=== PATIENT | male | born 1965 | race Caucasian/White ===

== ENCOUNTER → 2020-09-14 10:18 | Outpatient (BNVA) | payer OTHER, SELFPAY | PROVIDERS: Visit Provider Physician Assistant Medical | DX: S83.92XA Sprain of unspecified site of left knee, initial encounter (principal); S76.312A Strain of muscle, fascia and tendon of the posterior muscle group at thigh level, left thigh, initial encounter; S30.0XXA Contusion of lower back and pelvis, initial encounter; W01.0XXA Fall on same level from slipping, tripping and stumbling without subsequent striking against object, initial encounter | CPT/HCPCS: 73564; 99203 ==

== ENCOUNTER → 2020-09-19 09:00 | Outpatient (BNVA) | payer OTHER, SELFPAY | PROVIDERS: Visit Provider Physician Assistant | DX: M25.462 Effusion, left knee (principal) | CPT/HCPCS: 99213 ==

== ENCOUNTER 2020-09-23 08:09 | Outpatient (REF) | payer BC, SELFPAY ==
[2020-09-23 09:42] LABS: MANUAL DIFF FLAG SCAN; Mean Corpuscular Volume 95.8 fL (80-98); PLT CLUMP 1; SCAN SMEAR FLAG 1
[2020-09-23 09:45] LABS: Basophils Absolute Auto 0.1 X10*3/uL (0.0-0.2); Basophils Percent Auto 0.8 % (0-2); Eosinophils Absolute Auto 0.4 X10*3/uL (0.0-0.4); Eosinophils Percent Auto 5.8 % (0-4); Hematocrit 43.3 % (42-52); Imm Gran Abs Auto 0.02 X10*3/uL (0.00-0.03); Imm Gran Pct Auto 0.3 % (0.0-0.4); Lymphocytes Absolute Auto 3.1 X10*3/uL (1.2-4.9); Lymphocytes Percent Auto 42.4 % (20-40); Mean Corpuscular HGB Conc 34.6 g/dl (31.0-36.0); Mean Corpuscular Hemoglobin 33.2 pg (27.0-33.0); Mean Platelet Volume 10.3 fL (9.4-12.4); Monocytes Absolute Auto 0.4 X10*3/uL (0.1-1.2); Monocytes Percent Auto 6.1 % (2-11); Neutrophils Absolute Auto 3.2 X10*3/uL (2.0-8.3); Neutrophils Percent Auto 44.6 % (45-73); Red Blood Count 4.52 X10*6/uL (4.60-5.80); Red Cell Distribution Width 11.8 % (11.0-16.0); White Blood Count 7.2 X10*3/uL (4.8-10.8)
[2020-09-23 10:13] LABS: Alanine Aminotransferase 39 U/L (0-40); Albumin Level 4.3 g/dL (3.5-5.0); Alkaline Phosphatase 75 U/L (39-117); Anion Gap 12 (12-20); Aspartate Amino Transferase 29 U/L (5-37); Bilirubin Direct 0.3 mg/dL (0.0-0.5); Bilirubin Total 0.8 mg/dL (0.0-1.0); Blood Urea Nitrogen 14 mg/dL (9-16); Calcium 8.9 mg/dL (8.4-10.2); Carbon Dioxide 27 mmol/L (22-29); Chloride 106 mmol/L (96-108); Cholesterol 263 mg/dL; Estimated Glomerular Filt Rate > 60; Glucose Fasting 91 mg/dL (60-99); HDL Cholesterol 43 mg/dL; LDL Cholesterol Calculated 157 mg/dl; Magnesium 2.1 mg/dL (1.6-2.6); Potassium 4.2 mmol/l (3.3-5.1); Sodium 141 mmol/L (135-145); Total Protein 6.9 g/dL (6.5-8.0); Triglycerides 318 mg/dL
[2020-09-23 11:24] LABS: Platelet Count 208 X10*3/uL (160-400)
[2020-09-23 12:15] LABS: Erythrocyte Sedimentation Rate 7 MM/HR (0-15)
[2020-09-23 13:09] LABS: SLIDE REVIEW VERIFIED
== END 2020-09-23 08:10 | disposition home or self-care (01) ==
LOC: HO.LAB 08:09
DX: I10 Essential (primary) hypertension (principal); E78.5 Hyperlipidemia, unspecified
CPT/HCPCS: 36415; 80053; 80061; 80076; 82248; 83735; 85025; 85652

== ENCOUNTER → 2020-09-27 08:41 | Outpatient (BNVA) | payer OTHER, SELFPAY | PROVIDERS: Visit Provider Physician Assistant | DX: S83.242A Other tear of medial meniscus, current injury, left knee, initial encounter (principal); S83.282A Other tear of lateral meniscus, current injury, left knee, initial encounter; S82.142A Displaced bicondylar fracture of left tibia, initial encounter for closed fracture; X58.XXXA Exposure to other specified factors, initial encounter | CPT/HCPCS: 99213 ==

== ENCOUNTER → 2020-10-05 11:33 | Outpatient (BNVA) | payer OTHER, SELFPAY | PROVIDERS: Visit Provider Physician Assistant | DX: S83.242A Other tear of medial meniscus, current injury, left knee, initial encounter (principal); S83.282A Other tear of lateral meniscus, current injury, left knee, initial encounter; X58.XXXA Exposure to other specified factors, initial encounter; Y93.9 Activity, unspecified; Y92.9 Unspecified place or not applicable; Y99.8 Other external cause status | CPT/HCPCS: 99213 ==

== ENCOUNTER 2021-05-23 09:05 | Outpatient (REF) | payer BC, SELFPAY ==
[2021-05-23 10:07] LABS: Hemoglobin 15.2 g/dl (14.0-18.0); Mean Corpuscular HGB Conc 34.5 g/dl (31.0-36.0); Mean Corpuscular Volume 95.7 fL (80-98); Mean Platelet Volume 9.4 fL (9.4-12.4); Platelet Count 240 X10*3/uL (160-400); White Blood Count 7.5 X10*3/uL (4.8-10.8)
[2021-05-23 10:19] LABS: Alanine Aminotransferase 24 U/L (0-40); Albumin Level 4.4 g/dL (3.5-5.0); Alkaline Phosphatase 82 U/L (39-117); Anion Gap 13 (12-20); Aspartate Amino Transferase 25 U/L (5-37); Bilirubin Direct 0.3 mg/dL (0.0-0.5); Blood Urea Nitrogen 14 mg/dL (9-16); Calcium 9.5 mg/dL (8.4-10.2); Carbon Dioxide 28 mmol/L (22-29); Chloride 107 mmol/L (96-108); Cholesterol 244 mg/dL; Estimated Glomerular Filt Rate > 60; Glucose Random 93 mg/dL (60-115); HDL Cholesterol 52 mg/dL; LDL Cholesterol Calculated 145 mg/dl; Potassium 4.5 mmol/L (3.3-5.1); Sodium 143 mmol/L (135-145); Total Protein 7.2 g/dL (6.5-8.0); Triglycerides 235 mg/dL
[2021-05-23 10:39] LABS: Thyroid Stimulating Hormone 2.15 uIU/mL (0.32-4.0)
[2021-05-23 12:02] LABS: Glucose Urine UA NEG (NEG); Leukocyte Esterase Urine NEG (NEG); Nitrite Urine NEG (NEG); PH 6.5 (5.0-8.0); Urine Blood NEG (NEG); Urine Ketones NEG (NEG); Urine Protein NEG (NEG-TRACE)
[2021-05-23 12:08] LABS: Appearance Urine CLEAR; Color Urine STRAW
== END 2021-05-23 09:06 | disposition home or self-care (01) ==
LOC: HO.LAB 09:05
PROVIDERS: PCP Internal Medicine; Visit Provider Internal Medicine
DX: E78.00 Pure hypercholesterolemia, unspecified (principal)
CPT/HCPCS: 36415; 80048; 80061; 80076; 81003; 84443; 85027

== ENCOUNTER 2021-06-17 10:36 | Outpatient (REF) | payer BC, SELFPAY ==
--- NOTE | ~2021-06-17 | XR_ITS ---
EXAMINATION: XR CHEST CLINICAL INFORMATION: Chest pain COMPARISON: February 15, 2017 TECHNIQUE: 2 views of the chest were obtained. FINDINGS: No significant abnormality is noted involving the heart, lungs, mediastinum, bony thorax or soft tissues. XR/XR chest 2V IMPRESSION: No acute disease.
== END 2021-06-17 10:37 | disposition home or self-care (01) ==
LOC: HO.XRAY 10:36
PROVIDERS: PCP Internal Medicine; Visit Provider Internal Medicine
DX: R07.9 Chest pain, unspecified (principal); I10 Essential (primary) hypertension; E78.00 Pure hypercholesterolemia, unspecified; F10.10 Alcohol abuse, uncomplicated; F12.10 Cannabis abuse, uncomplicated
CPT/HCPCS: 71046

== ENCOUNTER → 2021-07-26 14:16 | Outpatient (BNVA) | payer BC, SELFPAY | PROVIDERS: PCP Internal Medicine; Visit Provider Nurse Practitioner Family ==

== ENCOUNTER 2021-09-07 07:07 | Day surgery (SDC) | payer BC, SELFPAY ==
[2021-08-31 14:41] VITALS: BMI 29.6
--- NOTE | 2021-09-06 10:47 | P.CONAN_ITS ---
Documented by User: Nabila Mitchell NP 09/06/21 10:48 HPI - Anesthesia Eval Consult details Narrative: 56yo M for Colonoscopy ETOH abuse PMFSH Active Problems Active Problems: All Active Problems (Updated 08/31/21 @ 14:46 by Sarah Amin RN) Sprain (Acute) Screening for malignant neoplasm of colon performed (Acute) Cannabis use disorder, mild, abuse (Acute) Chest pain (Acute) Tubular adenoma (Acute) Essential hypertension (Acute) Alcohol abuse (Acute) Hypercholesterolemia (Acute) Past Medical History Medical History Alcohol abuse Asthma Essential hypertension Hypercholesterolemia Tubular adenoma Family History Family History Mother No problems noted. Father No problems noted. Surgical History Surgical History H/O hemorrhoidectomy History of neck surgery Hx of colonoscopy Hx of excision of testicular mass Hx of shoulder surgery Social History Social History Housing: Apartment Alcohol intake: current Alcohol intake frequency: former alcohol drinker Patient Tobacco Use Status: Former Tobacco user Quit Date: 2013 Tobacco use type: Cigarette e-Cigarette/Vaping Use: Never Used Second Hand Smoke Exposure: No Use of substances other than those prescribed or required for medical reasons: Yes Advance Directives Information Provided: Yes (informational brochure mailed) Advance Directives on File: No service: No Current occupational status: employed Meds Allergies Allergy/AdvReac Type Severity Reaction Status Date / Time No Known Allergies Allergy Verified 07/26/21 14:28 [No Known Allergies*] Home Medications Medication Instructions Recorded Confirmed Last Taken Type epinephrine 0.3 mg/0.3 mL IM ONCE 07/26/21 Unknown History injection, auto-injector methylprednisolone 4 mg tablets in mg PO DIRECTED 07/26/21 Unknown History a dose pack Exam Exam Date and Time: September 06, 2021 1047 Height,Weight and Vital Signs: Height 5 ft 8 in Weight 88.451 kg Pertinent Lab Results Pertinent Lab Results: Laboratory Tests 05/23/21 05/23/21 09:15 09:15 WBC 7.5 Hgb 15.2 Hct 44.0 Plt Count 240 Sodium 143 Potassium 4.5 Chloride 107 Carbon Dioxide 28 BUN 14 Creatinine 0.75 Assessment and Plan Assessment Anesthesia Assessment: Chart Reviewed Documented by User: Albert Foote MD 09/07/21 10:19 [facility] Past Medical History Medical History Alcohol abuse Asthma Essential hypertension Hypercholesterolemia Tubular adenoma Family History Family History Mother No problems noted. Father No problems noted. Family history of problems with anesthesia: No Surgical History Surgical History H/O hemorrhoidectomy History of neck surgery Hx of colonoscopy Hx of excision of testicular mass Hx of shoulder surgery History of Problems with Anesthesia: No Social History Social History Housing: Apartment Alcohol intake: current Alcohol intake frequency: former alcohol drinker Patient Tobacco Use Status: Former Tobacco user Quit Date: 2013 Tobacco use type: Cigarette e-Cigarette/Vaping Use: Never Used Second Hand Smoke Exposure: No Use of substances other than those prescribed or required for medical reasons: Yes Advance Directives Information Provided: Yes (informational brochure mailed) Advance Directives on File: No service: No Current occupational status: employed Meds Allergies Allergy/AdvReac Type Severity Reaction Status Date / Time No Known Allergies Allergy Verified 07/26/21 14:28 [No Known Allergies*] Home Medications Medication Instructions Recorded Confirmed Last Taken Type epinephrine 0.3 mg/0.3 mL IM ONCE 07/26/21 Unknown History injection, auto-injector methylprednisolone 4 mg tablets in mg PO DIRECTED 09/15/21 Unknown History a dose pack Exam Airway Mallampati Class: I TM Dist: >3cm Assessment and Plan Assessment Anesthesia Assessment: Anesthesia Plan Discussed Final Anesthetic Review Family History of Problems with Anesthesia: No History of Problems with Anesthesia: No NPO: Yes ASA Class: II Final Preanesthetic Review: No Changes in Pt Med Stat, Meds/Allgs Chart Reviewed, Consent Obtained/Reviewed and Anes Risks/Benef Reviewed Patient Risk: Low Procedure Risk: Low Anesthetic Plan Anesthetic Plan: MAC: Disposition: Standard PACU
[2021-09-07 07:45] VITALS: BP 136/84; PULSE 68; RESP 16; TEMP 36.4; O2SAT 97
[2021-09-07] MEDS: Lactated Ringers 1,000 ML 100 ML IVCONT (07:49)
--- NOTE | 2021-09-07 08:36 | MHC.SHP ---
Pre-Procedural Eval Section A Date of Service: 09/07/21 Section B Chief Complaint: Screening Relevant Family History (Specify if Yes): No Relevant Social History: Other (specify) (occ cannabis use) Present Medications: see Short Stay Collaborative assessment Medical History: Significant History (Alcohol abuse Asthma Essential hypertension Hypercholesterolemia Tubular adenoma) History of Previous Operations: Relevant previous surgery/procedure and date(s) (hemorrhoidectomy, colonoscopy, shoulder surgery) Allergies: Allergies Allergy/AdvReac Type Severity Reaction Status Date / Time No Known Allergies Allergy Verified 07/26/21 14:28 [No Known Allergies*] Review of Systems Sugical H&P ROS: Negative: Constitution, Cardiovascular, Respiratory, Neurological, Psychiatric, Hem-Onc, Allergic/Immunologic, Gastrointestinal, Genitourinary, Musculoskeletal, Integumentary, Endocrine and Eyes/Ears/Nose/Throat Exam Surgical H&P Exam: Normal: HEENT, Normal: Heart, Normal: Lungs, Normal: Extremities, Normal: Abdomen, Normal: Skin and Normal: Neurological Plan Diagnosis/Plan: Unchanged I have reviewed the history and physical and performed a pertinent physical examination on my patient. No changes have occurred unless specified.
--- NOTE | 2021-09-07 08:50 | P.BOP_ITS ---
Brief Operative Note Date of Service: 09/07/21 Pre-op diagnosis: hx of polyps Post-op diagnosis: same Procedure: see op note Surgeon: Darshan Parikh MD Anesthesia: MAC Was an Market Analyst used for this Procedure?: No Estimated blood loss (mL): 0 Condition: stable Disposition: PACU
--- NOTE | 2021-09-07 08:50 | W.PM.OPN ---
Operative Note Operative Note Date of Service: 09/07/21 Narrative: Operative Information Procedure Description: Colonoscopy COLONOSCOPY Instrument: Olympus variable stiffness pediatric scope 190L Colonoscopy Monitoring: Vital signs and clinical assessment, continuous EKG monitoring, Pulse oximetry, Carbon Dioxide monitoring and blood pressure monitoring were done throughout the procedure. Colon withdrawal time was 19 minutes. Procedure: The patient was placed in the left lateral decubitis position and pre-procedure medications were administered. After a digital rectal examination of the ano-rectum, the video colonoscope was inserted into the rectum and advanced through the colon to the cecum/TI. The colonoscope was slowly withdrawn in a retrograde panoramic fashion and the colon mucosa was carefully examined including a retroflexed view of the rectum. Findings and interventions are described below. Procedure Difficulty: easy Findings: Terminal Ileum-normal Cecum:normal Ascending Colon: normal, right sided retroflexion also normal Transverse Colon - 8-9 mm sessile polyp removed with forceps Descending Colon: 10 mm sessile polyp removed with codl snare Sigmoid Colon: 10-12 mm sessile polyp removed with cold snare Rectum: Retroflexion with moderate sized internal hemorrhoids, grade I, x 2 sessile polyps 7-9 mm removed with cold snare with one clip applied for hemostasis Anorectum - normal Colon preparation: [place] Bowel Preparation Scale Right colon; 3 Transverse colon: 3 Left colon; 2 (0 = Unprepared colon segment with mucosa not seen due to solid stool that cannot be cleared. 1 = Portion of mucosa of the colon segment seen, but other areas of the colon segment not well seen due to staining, residual stool and/or opaque liquid. 2 = Minor amount of residual staining, small fragments of stool and/or opaque liquid, but mucosa of colon segment seen well. 3 = Entire mucosa of colon segment seen well with no residual staining, small fragments of stool or opaque liquid) Impression and Post Procedure Diagnosis: polyps internal hemorrhoids Plan: High fiber diet leaflet Avoid straining at stool, epsom salts and sitz bath, anusol supps or cream Repeat Colonoscopy in 3-5 years or earlier if clinically indicated Above findings were reviewed with the patient and relevant handouts were provided if indicated.
[2021-09-07 09:24] VITALS: BP 116/77; PULSE 62; RESP 16; TEMP 36.9; O2SAT 99
[2021-09-07 09:39] VITALS: BP 124/73; PULSE 59; RESP 16; O2SAT 100
== END 2021-09-07 10:24 | disposition home or self-care (01) ==
PROVIDERS: PCP Internal Medicine; Visit Provider Internal Medicine Gastroenterology
PROC: 0DJD8ZZ Inspection of Lower Intestinal Tract, Via Natural or Artificial Opening Endoscopic (ICD-10-PCS; CPT 45378; principal; 2021-09-07 08:30)
DX: Z12.11 Encounter for screening for malignant neoplasm of colon (principal); Z86.010 Personal history of colon polyps; D12.3 Benign neoplasm of transverse colon; D12.4 Benign neoplasm of descending colon; K63.5 Polyp of colon; K62.1 Rectal polyp; K64.0 First degree hemorrhoids; J45.909 Unspecified asthma, uncomplicated; I10 Essential (primary) hypertension; F10.10 Alcohol abuse, uncomplicated; E78.00 Pure hypercholesterolemia, unspecified; Z79.899 Other long term (current) drug therapy; Z87.891 Personal history of nicotine dependence
CPT/HCPCS: 45385; 45380; 88305

== ENCOUNTER → 2021-09-22 08:06 | Outpatient (BNVA) | payer BC, SELFPAY | PROVIDERS: PCP Internal Medicine; Referring Provider Internal Medicine; Visit Provider Nurse Practitioner Family ==

== ENCOUNTER 2022-02-22 13:32 | Outpatient (REF) | payer BC, SELFPAY ==
--- NOTE | ~2022-02-22 | US_ITS ---
EXAMINATION: US SCROTUM CLINICAL INFORMATION: Benign cyst of testis. COMPARISON: None TECHNIQUE: A sonogram of the scrotum was performed assessing bundy-scale appearance and color Doppler flow. Spectral Doppler analysis of the arterial and venous flow were performed in the testes bilaterally. FINDINGS: RIGHT: Right testicle measures 4.6 x 1.9 x 2.7 cm, volume 12.3 mL. There is a 0.3 cm scrotal ryan. Spectral Doppler analysis of the arterial and venous flow is normal in the right testis. Right epididymal head is normal in size. There is a hyperechoic focus in the right epididymal body measuring up to 0.4 cm, likely representing a benign calcification. There is a 0.4 cm tunica albuginea cyst. No right hydrocele or varicocele is seen. Right epididymal Doppler flow is normal. LEFT: Left testicle measures 4.1 x 1.8 x 2.6 cm, volume 10.0 mL. No focal testicular parenchymal lesions are visualized. Spectral Doppler analysis of the arterial and venous flow is normal in the left testis. Left epididymal head is normal in size. No left hydrocele or varicocele is seen. Left epididymal Doppler flow is normal. Inferior to the left testis is an ovoid 3.2 x 2.3 x 2.9 cm structure, that appears to demonstrate similar echogenicity and morphology to the testes. This structure appears separate from the left testicle. There is no internal flow on color Doppler imaging. US/US scrotum IMPRESSION: 1. Inferior to the left testis is an ovoid 3.2 cm structure, that demonstrates similar echogenicity and morphology to the testes. Differential diagnosis includes supernumerary testicle, fibrous pseudotumor, and less likely an adenomatoid tumor. Recommend referral to urology for further evaluation. Recommend comparison to any prior studies. 2. Normal appearance of the bilateral testes. No intratesticular tumor. 3. Small scrotal ryan and likely additional epididymal calcification on the right. Small benign tunica albuginea cyst on the right.
== END 2022-02-22 13:33 | disposition home or self-care (01) ==
LOC: HO.US 13:32
PROVIDERS: Visit Provider Internal Medicine
DX: N44.2 Benign cyst of testis (principal)
CPT/HCPCS: 76870

== ENCOUNTER 2022-03-14 11:33 | Emergency (ER) | payer BC, SELFPAY ==
[2022-03-14 12:37] VITALS: PULSE 73; RESP 18; TEMP 36.6; O2SAT 98; BMI 28.8
--- NOTE | 2022-03-14 14:26 | ED.MALEGU ---
HPI - Male Genitourinary General Chief complaint: Urogenital-Male Stated complaint: growth scrotum Time Seen by Provider: 03/14/22 14:20 Source: patient Mode of arrival: ambulatory Limitations: no limitations History of Present Illness MD Complaint: other (known testicle lesion) Onset (ago): year(s) Duration: progressively worsening Location: left testicle Severity: moderate Relieving factors: none Exacerbating factors: none Context: other (feels like it might be ready to pop - has a small white area on it, called urology told to come to ED has appointment next week) Associated symptoms: Reports denies other symptoms Related Data Home Medications Medication Instructions Recorded Confirmed albuterol sulfate 90 mcg/actuation 2 puff INHALATION Q6H PRN 01/10/22 aerosol inhaler Previous Rx's Medication Instructions Recorded lisinopril 10 mg tablet 10 mg PO DAILY #90 tab 06/13/21 atorvastatin 40 mg tablet 40 mg PO DAILY #90 tab 01/10/22 Allergies Allergy/AdvReac Type Severity Reaction Status Date / Time No Known Allergies Allergy Verified 01/10/22 10:57 [No Known Allergies*] Review of Systems Review of Systems: Constitutional : No Fever, No Chills ENT/Mouth : No sore throat, No Rhinorrhea Eyes: No Eye Pain, No Swelling, No Redness Cardiovascular : No Chest Pain, No SOB Respiratory : No Cough, No Sputum Gastrointestinal : No Nausea, No Vomiting, No Diarrhea, No abdominal Pain Genitourinary : No Dysuria, No Hematuria, pos testicular lesion Musculoskeletal : No joint pain, No Myalgias, No Joint Swelling Skin : pos Skin Lesions, no skin rash Neuro : No Weakness, No Numbness, No Headache Psych : No Anxiety, No Depression All other systems reviewed and are negative COUNTS INCLUDE 234 BEDS AT THE [facility] Past Medical History Attestation statement: The following information was validated with the patient. Medical History Alcohol abuse Asthma Essential hypertension Hx of hemorrhoids Hypercholesterolemia Tubular adenoma Surgical History H/O hemorrhoidectomy History of neck surgery Hx of colonoscopy Hx of excision of testicular mass Hx of shoulder surgery Family History Family History Mother No problems noted. Father No problems noted. Social History Social History Housing: Apartment Alcohol intake: current Alcohol intake frequency: a few times a week Patient Tobacco Use Status: Former Tobacco user Quit Date: 2013 Tobacco use type: Cigarette e-Cigarette/Vaping Use: Never Used Second Hand Smoke Exposure: No Use of substances other than those prescribed or required for medical reasons: No Advance Directives: No Advance Directives Information Provided: No service: No Current occupational status: employed Cognitive needs: No Hearing needs: No Vision needs: Yes (glasses) Physical Exam Vital Signs: Vital Signs: Last Vital Signs Temp 98 F 03/14/22 12:37 Pulse 88 03/14/22 15:13 Resp 16 03/14/22 15:13 BP 149/101 H 03/14/22 15:13 Pulse Ox 98 03/14/22 15:13 BMI result Body Mass Index 28.8 Appearance: Alert. Oriented X3. No acute distress. Eyes: Pupils equal, round and reactive to light. ENT: Pharynx normal. Neck: Normal inspection. Neck supple. CVS: Normal heart rate and rhythm. Pulses normal. Respiratory: No respiratory distress. Breath sounds normal. Abdomen: Soft and nontender. : L testicle round non fluctuant mass felt about 3cm in size no overlying warmth or erythema there is one white pustular area noted but it is thick white and does not appear infected Skin: Skin warm and dry. Normal skin color. Normal skin turgor. Extremities: No lower extremity edema. No calf ttp Neuro: Oriented X 3. No motor deficit. No sensory deficit. Course Course Course Narrative: message sent to Urology - patient told me that he has appointment in june to take care of this but was told by the adult probation officer that if he went to the ED he could be seen sooner Dr. Prakash to see in ED signed out to Dom CAMACHO pending Dr. Prakash evaluation. MDM - Male Genitourinary MDM Narrative Medical decision making narrative: 56 yo male hx of known L scrotal mass - overlying the area there is no signs of infection he has appointment with urology next week but noted a white area on the skin - the overlying area is not warm, there is no erythema, it is not fluctuant it does not appear infected. It looks walled off at this time and more like a thick fluid filled cyst. US report 1. Inferior to the left testis is an ovoid 3.2 cm structure, that demonstrates similar echogenicity and morphology to the testes. Differential diagnosis includes supernumerary testicle, fibrous pseudotumor, and less likely an adenomatoid tumor. Recommend referral to urology for further evaluation. Recommend comparison to any prior studies Discharge Plan Discharge Clinical Impression: Mass of left testicle Patient Disposition: Still a Patient Prescriptions: No Action lisinopril 10 mg tablet 10 mg PO DAILY Qty: 90 1RF atorvastatin 40 mg tablet 40 mg PO DAILY Qty: 90 1RF albuterol sulfate 90 mcg/actuation HFA aerosol inhaler 2 puff inhalation Q6H [id number]
[2022-03-14 15:13] VITALS: BP 149/101; PULSE 88; RESP 16; O2SAT 98
--- NOTE | 2022-03-14 16:37 | PM.UROCN ---
History of Present Illness Consult details Consult date: 03/14/22 Narrative: Present to emergency room with infected scrotal hair follicle Also has recurrent cystine left scrotum They do not appear to be communicating Imaging shows cyst is separate from testicle No evidence of testicular carcinoma Recommend antibiotics to cover skin jessi Ohri has appointment to see us for recurrent scrotal cyst in June Review of Systems Constitutional: Constitutional: Reports as per HPI and Reports no additional constitutional complaints Cardiovascular: Cardiovascular: Reports as per HPI and Reports no additional cardiovascular complaints Respiratory: Respiratory: Reports as per HPI and Reports no additional respiratory complaints Gastrointestinal: Gastrointestinal: Reports as per HPI and Reports no additional gastrointestinal complaints Genitourinary: Genitourinary: Reports as per HPI Musculoskeletal: Musculoskeletal: Reports no additional musculoskeletal complaints and Reports as per HPI Neurologic: Reports system reviewed and no additional complaints, except as documented and Reports as per HPI PMF Past Medical History Medical History Alcohol abuse Asthma Essential hypertension Hx of hemorrhoids Hypercholesterolemia Tubular adenoma Family History Family History Mother No problems noted. Father No problems noted. Surgical History Surgical History H/O hemorrhoidectomy History of neck surgery Hx of colonoscopy Hx of excision of testicular mass Hx of shoulder surgery Social History Social History Housing: Apartment Alcohol intake: current Alcohol intake frequency: a few times a week Patient Tobacco Use Status: Former Tobacco user Quit Date: 2013 Tobacco use type: Cigarette e-Cigarette/Vaping Use: Never Used Second Hand Smoke Exposure: No Use of substances other than those prescribed or required for medical reasons: No Advance Directives: No Advance Directives Information Provided: No service: No Current occupational status: employed Cognitive needs: No Hearing needs: No Vision needs: Yes (glasses) Meds Allergies Allergy/AdvReac Type Severity Reaction Status Date / Time No Known Allergies Allergy Verified 01/10/22 10:57 [No Known Allergies*] Home Medications Medication Instructions Recorded Confirmed Last Taken Type albuterol sulfate 90 mcg/actuation 2 puff INHALATION Q6H PRN 01/10/22 Unknown History aerosol inhaler Physical Exam Vital Signs: Vital Signs: Last Vital Signs Temp 98 F 03/14/22 12:37 Pulse 88 03/14/22 15:13 Resp 16 03/14/22 15:13 BP 149/101 H 03/14/22 15:13 Pulse Ox 98 03/14/22 15:13 BMI result Body Mass Index 28.8 Const: General: cooperative, healthy appearing, comfortable and no acute distress Orientation/consciousness: patient oriented x3 HEENT: Face and sinus: Yes normal facial exam Mouth: moist mucous membranes Neck: Neck: Yes normal visual inspection, Yes full ROM and Yes trachea midline Chest: Chest palpation & inspection: normal inspection of the chest Resp: Effort & Inspection: normal respiratory effort, able to speak in complete sentences and no respiratory distress GI: Inspection: Yes normal to inspection Back/Spine/Pelvis: Cervical Spine: normal cervical lordosis Thoracic/Lumbar Spine: thoracic and lumbar spine normal to inspection Skin: General skin exam: no rashes or lesions noted Neuro: General: patient oriented x3, tone normal and moves all extremities Extrem: General: Yes normal to inspection and Yes capillary refill normal Results Labs Labs: All other labs normal. Assessment and Plan (1) Scrotal cyst: Status: Acute Plan Antibiotic coverage with skin jessi Follow-up appointment Urology Procedures Date of Service Date of Service: 03/14/22
[2022-03-14] MEDS: Amoxicillin/Potassium Clav 875 MG TABLET PO (17:07)
== END 2022-03-14 17:15 | disposition home or self-care (01) ==
PROVIDERS: Emergency Provider Emergency Medicine; PCP Internal Medicine
DX: N50.89 Other specified disorders of the male genital organs (principal); I10 Essential (primary) hypertension; J45.909 Unspecified asthma, uncomplicated
CPT/HCPCS: 99283; 99284

== ENCOUNTER 2022-04-13 13:52 | Outpatient (REF) | payer BC, SELFPAY ==
[2022-04-13 14:29] LABS: MANUAL DIFF FLAG NO
[2022-04-13 15:47] LABS: Basophils Absolute Auto 0.1 X10*3/uL (0.0-0.2); Basophils Percent Auto 0.7 % (0-2); Eosinophils Absolute Auto 0.4 X10*3/uL (0.0-0.4); Eosinophils Percent Auto 5.7 % (0-4); Hematocrit 41.7 % (42.0-52.0); Hemoglobin 14.6 g/dl (14.0-18.0); Imm Gran Abs Auto 0.02 X10*3/uL (0.00-0.03); Imm Gran Pct Auto 0.3 % (0.0-0.4); Lymphocytes Absolute Auto 3.3 X10*3/uL (1.2-4.9); Lymphocytes Percent Auto 42.5 % (20-40); Mean Corpuscular Hemoglobin 32.2 pg (27.0-33.0); Mean Corpuscular Volume 92.1 fL (80.0-98.0); Mean Platelet Volume 9.2 fL (9.4-12.4); Monocytes Absolute Auto 0.5 X10*3/uL (0.1-1.2); Monocytes Percent Auto 6.9 % (2-11); Neutrophils Absolute Auto 3.4 x10*3/uL (2.0-8.3); Neutrophils Percent Auto 43.9 % (45-73); Platelet Count 226 X10*3/uL (160-400); Red Blood Count 4.53 X10*6/uL (4.60-5.80); Red Cell Distribution Width 12.2 % (11.0-16.0); White Blood Count 7.7 X10*3/uL (4.8-10.8)
== END 2022-04-13 13:53 | disposition home or self-care (01) ==
LOC: HO.LAB 13:52
PROVIDERS: PCP Internal Medicine; Visit Provider Internal Medicine Pulmonary Disease
DX: R06.00 Dyspnea, unspecified (principal); I10 Essential (primary) hypertension; E78.00 Pure hypercholesterolemia, unspecified; Z87.891 Personal history of nicotine dependence; Z77.120 Contact with and (suspected) exposure to mold (toxic)
CPT/HCPCS: 36415; 82785; 85025; 86003

== ENCOUNTER 2022-05-17 13:38 | Outpatient (REF) | payer BC, SELFPAY ==
--- NOTE | 2022-05-17 17:40 | PFT_ITS ---
FLOWS: FEV1 85% of predicted at 2.97 L. FVC 93% of predicted at 4.21 L. FEV1 to FVC ratio of 0.71. No bronchodilator response. LUNG VOLUMES: Total lung capacity 108% of predicted at 7.15 L. Residual volume 130% of predicted at 2.71 L. Slow vital capacity 98% of predicted at 4.44 L. Expiratory reserve volume 118% of predicted at 1.56 L. Diffusion capacity is mildly decreased. IMPRESSION: Mild reversible obstructive ventilatory defect with no bronchodilator response. Increased residual volume suggests air trapping. Decreased diffusion capacity suggests emphysema. Cachorro Overton MD AP/MODL / [id number]
== END 2022-05-17 13:39 | disposition home or self-care (01) ==
LOC: HO.RESP 13:38
PROVIDERS: PCP Internal Medicine; Visit Provider Internal Medicine Pulmonary Disease
DX: Z77.120 Contact with and (suspected) exposure to mold (toxic) (principal)
CPT/HCPCS: 94060; 94727; 94729

== ENCOUNTER 2022-10-08 07:42 | Outpatient (REF) | payer BC, SELFPAY ==
--- NOTE | ~2022-10-08 | CT_ITS ---
EXAMINATION: CT CHEST WITHOUT CONTRAST CLINICAL INFORMATION: Chest pain. COMPARISON: Chest x-ray 06/17/2021. TECHNIQUE: Multidetector volumetric CT imaging of the chest was done. Axial MIP volume rendering provided. Sagittal and coronal reformatted images were obtained. This CT examination was performed using dose optimization techniques as appropriate, variously including the following: *Automated exposure control *Adjustment of mA and/or kV according to patient size (this includes techniques or standardized protocols for targeted exams where dose is matched to indication/reason for exam; i.e. extremities or head) *Use of iterative reconstruction technique DLP: 164 mGy-cm FINDINGS: SEAT COVER CUTTER: Unremarkable. LUNGS: There is mild centrilobular emphysema without evidence of acute pneumonic process. There are no pulmonary nodules, mass or consolidation. MEDIASTINUM: The thyroid lobes are symmetric and normal. The central trachea and the bronchi are widely patent. Small shotty lymph nodes are seen in the mediastinum. The heart size and the great vessels are of normal caliber. There is no pericardial effusion. CORONARY ARTERY CALCIFICATION: Mild coronary artery calcifications are seen. PLEURA: There is no pleural effusion. No pleural mass or thickening. AXILLA: No abnormal axillary lymph nodes are visualized. UPPER ABDOMEN: The visualized liver, spleen, pancreas and bilateral adrenal glands are unremarkable. There are no radiopaque gallstones. OSSEOUS STRUCTURES: No aggressive lytic or sclerotic process is seen. There is mild ventral spondylosis and an endplate Schmorl's node in the mid dorsal spine. CT/CT chest wo IV con IMPRESSION: 1. Mild centrilobular emphysema without acute pneumonic process. 2. No pulmonary nodule, mass or consolidation. 3. No abnormal mediastinal or axillary lymph nodes. Fleischner guidelines were followed.
== END 2022-10-08 07:43 | disposition home or self-care (01) ==
LOC: HO.CT 07:42
PROVIDERS: PCP Internal Medicine; Visit Provider Internal Medicine Pulmonary Disease
DX: R07.89 Other chest pain (principal)
CPT/HCPCS: 71250

== ENCOUNTER 2023-02-01 15:13 | Outpatient (REF) | payer BC, SELFPAY ==
[2023-02-01 17:50] LABS: Hematocrit 42.6 % (42.0-52.0); Hemoglobin 14.6 g/dl (14.0-18.0); Mean Corpuscular HGB Conc 34.3 g/dl (31.0-36.0); Mean Corpuscular Hemoglobin 32.4 pg (27.0-33.0); Mean Corpuscular Volume 94.5 fL (80.0-98.0); Mean Platelet Volume 9.5 fL (9.4-12.4); Platelet Count 217 X10*3/uL (160-400); Red Blood Count 4.51 X10*6/uL (4.60-5.80); Red Cell Distribution Width 12.2 % (11.0-16.0); White Blood Count 8.6 X10*3/uL (4.8-10.8)
[2023-02-01 18:28] LABS: Alanine Aminotransferase 31 U/L (0-40); Albumin Level 4.5 g/dL (3.5-5.0); Alkaline Phosphatase 73 U/L (39-117); Anion Gap 14 (12-20); Aspartate Amino Transferase 23 U/L (5-37); Bilirubin Direct 0.4 mg/dL (0.0-0.5); Bilirubin Total 1.3 mg/dL (0.0-1.0); Blood Urea Nitrogen 15 mg/dL (9-16); Calcium 9.5 mg/dL (8.4-10.2); Carbon Dioxide 27 mmol/L (22-29); Chloride 105 mmol/L (96-108); Cholesterol 203 mg/dL; Estimated Glomerular Filt Rate > 60; Glucose Random 74 mg/dL (60-115); HDL Cholesterol 58 mg/dL; LDL Cholesterol Calculated 123 mg/dl; Potassium 4.2 mmol/L (3.3-5.1); Sodium 142 mmol/L (135-145); Total Protein 6.9 g/dL (6.5-8.0); Triglycerides 110 mg/dL
[2023-02-01 18:44] LABS: Thyroid Stimulating Hormone 3.19 uIU/mL (0.32-4.0)
== END 2023-02-01 15:14 | disposition home or self-care (01) ==
LOC: HO.LAB 15:13
PROVIDERS: PCP Internal Medicine; Visit Provider Internal Medicine
DX: J44.9 Chronic obstructive pulmonary disease, unspecified (principal); I10 Essential (primary) hypertension
CPT/HCPCS: 36415; 80048; 80061; 80076; 84443; 85027

== ENCOUNTER → 2023-03-07 09:06 | Outpatient (BNVA) | payer BC, SELFPAY | PROVIDERS: PCP Internal Medicine; Visit Provider Psychiatry & Neurology Neurology | DX: Z13.89 Encounter for screening for other disorder (principal) ==

== ENCOUNTER 2023-04-15 07:20 | Outpatient (REF) | payer BC, SELFPAY ==
--- NOTE | ~2023-04-15 | MR_ITS ---
EXAMINATION: MR BRAIN WITHOUT CONTRAST CLINICAL INFORMATION: Tremor, unspecified. COMPARISON: None available. TECHNIQUE: Multiplanar, multisequence imaging of the brain was performed without intravenous contrast. FINDINGS: There is no acute infarction, mass, hemorrhage, or extra-axial collection. The ventricles, sulci, and basilar cisterns are normal in size and configuration. A few mild nonspecific foci of T2/FLAIR hyperintensity are seen in the cerebral white matter. The basal ganglia, thalami, and brainstem appear normal. The flow voids of the major intracranial arteries appear intact. The bones and extracranial soft tissues are unremarkable. Orbits appear normal. There is moderate polypoid paranasal sinus mucosal thickening. There is small amount of fluid within the right mastoid. MR/MR head/brain wo con IMPRESSION: No acute infarct, mass lesion, intracranial hemorrhage, or evidence of hydrocephalus.
== END 2023-04-15 07:21 | disposition home or self-care (01) ==
LOC: HO.MRI 07:20
PROVIDERS: PCP Internal Medicine; Visit Provider Psychiatry & Neurology Neurology
DX: R25.1 Tremor, unspecified (principal); R29.898 Other symptoms and signs involving the musculoskeletal system; R46.89 Other symptoms and signs involving appearance and behavior
CPT/HCPCS: 70551

== ENCOUNTER → 2023-05-16 11:58 | Outpatient (BNVA) | payer BC, SELFPAY | PROVIDERS: PCP Internal Medicine; Visit Provider Psychiatry & Neurology Neurology | DX: R25.1 Tremor, unspecified (principal); R29.898 Other symptoms and signs involving the musculoskeletal system; R46.89 Other symptoms and signs involving appearance and behavior; F32.A Depression, unspecified ==

== ENCOUNTER 2023-06-26 15:30 | Outpatient (RCR) | payer BC, SELFPAY ==
--- NOTE | 2023-06-19 08:39 | MHC.OT.EP ---
[address] [phone] Occupational Therapy Plan of Care Patient Name: Tom Summers Date of Evaluation: 06/17/23 Diagnosis: Bilateral hand weakness Pain Location: 6/10 bilateral hands and wrists Ache , numbness, pins and needles Pain Score: 6 Pain Scale Used: Numeric (0 - 10) Aggravating Factors: Lifting , opening tight jars, cutting meat , writing. Holding a utensil a long time. 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 Today he presents with S+S consistent with a diagnosis of OA jt pain and possible CTS . He also reports an old diagnosis of ulnar nerve compression at his elbows. Writing impairment appears to be largely due to thumb pain and muscle spasm with improper pen furnace combination analyst . Symptoms improved with change in pen furnace combination analyst. Strength, hand dexterity , upper extremity coordination, standing static balance and dynamic standing balance all WNL this afternoon. Pt will benefit from OT to address wrist and hand pain and CTS sx Frequency and Duration: The patient will be seen 2x wk x 4 wks Short Term Goals: Pt will demo knowledge of and implementation of joint protection technique for bilateral hands and wrists as needed Pt will demo awareness of thermal modalities for hand and wrist pain Pt will demo independence with ROM and strengthening exercises Pt will report decreased frequency of hand paresthesia with hand use Pt will report decreased hand pain to occasional 5/10 Fdc Goals: Same as above Treatment Plan: Therapeutic Exercise Therapeutic Activity Home Exercise Program Splinting Patient Education ADL Training Ultrasound Paraffin Fluidotherapy MHP Cold Packs Joint Mobilization Soft Tissue Mobilization Electronically Signed By: Ciera Ojeda OT CHT CLT Please Sign and return to therapist. Thank you once again for your referral.
== END 2023-08-14 10:21 | disposition home or self-care (01) ==
LOC: HO.OT 15:30
PROVIDERS: PCP Internal Medicine; Visit Provider Psychiatry & Neurology Neurology
DX: R29.898 Other symptoms and signs involving the musculoskeletal system (principal)
CPT/HCPCS: 29125; 97110; 97140; 97167; 97760

== ENCOUNTER 2023-11-18 08:11 | Outpatient (AMB) | payer BC, SELFPAY ==
--- NOTE | 2023-11-18 08:52 | MHC.OFFVIS ---
Intake Vital Signs 11/18/23 09:03 Height 5 ft 8 in Weight 187 lb 4 oz BMI 28.5 BP 150/96 H Blood Pressure Location Lt brachial Position Sitting Pulse 73 Pulse Source Pulse Oximeter Pulse Oximetry (%) 96 Oxygen Delivery Method Room Air Intake Visit Reasons: 6m f/u WEAKNESS - Confirmed Intake Note: Pt presents to the office today for a 6 month follow up for weakness. Allergies No Known Allergies [No Known Allergies*] Allergy (Verified 11/18/23 08:52) Medication List - Last Reconciled 11/18/23 by Laurie Miranda MD albuterol sulfate 90 mcg/actuation 1 inh inhalation QID fluticasone furoate-vilanterol 200-25 mcg/dose 1 ea inhalation DAILY sertraline 100 mg PO DAILY HPI HPI Comments History of Present Illness Details 58y/o right handed male is here for follow up . His mood is good with sertraline 50mg qd . He stopped for 2 months and he started having crying episodes so he restarted. and he also had a change in his work environment which has helped.No tremors He is still smoking marijuana . He has banormal sensation in his legs ta night that wake marek up. He also has abnormal leg movements at night. He stopped alcohol . Previous History-He c/o hand weakness, change in handwriting. He reports that his hand writing has become illegible , drops things frequently form both his hands, has difficulty picking small things, has difficulty with fine motor coordination since 2019. He also reports hand cramping when he hold his pen etc. He denies neck pain or tremors. He denies numbness, tingling, gait issues. He has had urinary urgency and had an episode of incontinence. His work feel his voice is softer and slurred, his facial expression has changed.His work is trying to fire him, he was told that he is rude to his boss.He was reported to for aggressive behavior etc. He has anxiety , depression, cries during the visit. His mood has been affected for 1 year because of his job situation. He reports difficulty falling asleep staying asleep. [facility] Medical History Depression Behavior concern Hand weakness Hx of hemorrhoids Asthma Tubular adenoma Essential hypertension Alcohol abuse Hypercholesterolemia Surgical History Hx of shoulder surgery Hx of excision of testicular mass H/O hemorrhoidectomy Hx of colonoscopy History of neck surgery Family History Mother No problems noted. Father No problems noted. Social History (Updated 11/18/23 @ 09:05 by Renee Ramirez MA) Housing: Apartment Alcohol intake: current Alcohol intake frequency: holidays/special occasions only Patient Tobacco Use Status: Former Tobacco user Quit Date: 2013 Tobacco use type: Cigarette e-Cigarette/Vaping Use: Never Used Second Hand Smoke Exposure: No service: No Current occupational status: employed Cognitive needs: No Hearing needs: No Vision needs: Yes (glasses) Physical Exam Vital Signs: Last Vital Signs Pulse 73 11/18/23 09:03 BP 150/96 H 11/18/23 09:03 Pulse Ox 96 11/18/23 09:03 Oxygen Delivery Method Room Air 11/18/23 09:03 BMI result Body Mass Index 28.5 Const Orientation/consciousness: patient oriented x3 Eyes Pupils: Equal, round and reactive pupils present Neuro Other: severely decreased blink and facial expression Right UE - cog wheel rigidty FFM normal Gait- severely decreased arm swing on the right General: patient oriented x3, tone normal and moves all extremities Cranial nerves: Yes Facial sensation intact/muscles of mastication intact, Yes Equal, round and reactive pupils present, Yes Bilaterally intact EOM present, Yes Nystagmus not present, Yes Normal facial strength present, Yes Midline tongue present, Yes Symmetric palate elevation present and Yes Ability to bilaterally elevate shoulders present Cognition (Neuro): normal cognition Gait exam (Neuro): Other gait observations present (no arm swing on right) Motor exam (neuro): 5/5 motor strength present throughout Deep tendon reflexes (DTR's): Right triceps reflex intensity grade: 2+, Left triceps reflex intensity grade: 2+, Rt Biceps (C5, C6): 2+, Left biceps reflex intensity grade: 2+, Right brachioradialis reflex intensity grade: 2+, Left brachioradialis reflex intensity grade: 2+, Right patellar reflex intensity grade: 2+ and Left patellar reflex intensity grade: 2+ Coordination: [id number] test normal Psych Speech and movement: Pressured speech present Affect: Sad affect present, Anxious affect present and Depressed mood present Attitude: cooperative Thought process: Normal thought process present Thought content: Normal thought content present Insight: Good insight present (Psych) Assessment & Plan Assessment & Plan (1) Hand weakness: Comment: likely early parkinsons Code(s): R29.898 - Other symptoms and signs involving the musculoskeletal system (2) Generalized anxiety disorder: Code(s): F41.1 - Generalized anxiety disorder (3) Depression: Code(s): F32.A - Depression, unspecified Plan He had mild extrapyramidal symptoms on todays exam - early parkinsons Increase sertraline 100mg qd for depression JANIS scan . Orders: Orders DaTscan Today R29.898 - Other symptoms and signs involving the musculoskeletal system Medications: Changed From sertraline 50 mg PO DAILY 90 tabs 6RF To sertraline 100 mg PO DAILY 30 tabs 6RF Refilled sertraline 100 mg PO DAILY 30 tabs 6RF Coding Level of Care Code Est Pt Level 4 (49265) Diagnoses Hand weakness R29.898 Generalized anxiety disorder F41.1 Depression F32.A
[2023-11-18 09:03] VITALS: BP 150/96; PULSE 73; O2SAT 96; BMI 28.5
== END 2023-11-18 09:27 | disposition home or self-care (01) ==
PROVIDERS: PCP Internal Medicine; Visit Provider Psychiatry & Neurology Neurology
DX: R29.898 Other symptoms and signs involving the musculoskeletal system (principal); F41.1 Generalized anxiety disorder; F32.A Depression, unspecified
CPT/HCPCS: 99214

== ENCOUNTER → 2023-11-18 08:11 | Outpatient (BNVA) | payer BC, SELFPAY | PROVIDERS: PCP Internal Medicine; Visit Provider Psychiatry & Neurology Neurology | DX: R25.1 Tremor, unspecified (principal); R29.898 Other symptoms and signs involving the musculoskeletal system; R46.89 Other symptoms and signs involving appearance and behavior; F32.A Depression, unspecified; F41.1 Generalized anxiety disorder ==

== ENCOUNTER 2024-03-16 08:43 | Outpatient (AMB) | payer BC, SELFPAY ==
--- NOTE | 2024-03-16 08:53 | MHC.OFFVIS ---
Vital Signs 03/16/24 09:02 Height 5 ft 8 in Weight 187 lb BMI 28.4 BP 140/76 H Blood Pressure Location Rt brachial Position Sitting Respiration 16 Pulse 103 H Pulse Source Pulse Oximeter Pulse Oximetry (%) 96 Oxygen Delivery Method Room Air Intake Visit Reasons: 4M follow up-CONF Intake Note: Pt presents for 3 month follow up for hand weakness. 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 His mood was good with sertraline 100mg qd . He stopped for 2 weeks. and he also had a change in his work environment which has helped.No tremors He is still smoking marijuana . He has abnormal sensation in his legs at night that wakes him up. He also has abnormal leg movements at night. He stopped alcohol . JANIS scan was negative for parkinsons. Previous History-He c/o hand weakness, change in handwriting. He reports that his hand writing has become illegible , drops things frequently form both his hands, has difficulty picking small things, has difficulty with fine motor coordination since 2019. He also reports hand cramping when he hold his pen etc. He denies neck pain or tremors. He denies numbness, tingling, gait issues. He has had urinary urgency and had an episode of incontinence. His work feel his voice is softer and slurred, his facial expression has changed.His work is trying to fire him, he was told that he is rude to his boss.He was reported to for aggressive behavior etc. He has anxiety , depression, cries during the visit. His mood has been affected for 1 year because of his job situation. He reports difficulty falling asleep staying asleep. [facility] Medical History Depression Behavior concern Hand weakness Hx of hemorrhoids Asthma Tubular adenoma Essential hypertension Alcohol abuse Hypercholesterolemia Surgical History Hx of shoulder surgery Hx of excision of testicular mass H/O hemorrhoidectomy Hx of colonoscopy History of neck surgery Family History Mother No problems noted. Father No problems noted. Social History Housing: Apartment Alcohol intake: current Alcohol intake frequency: holidays/special occasions only Patient Tobacco Use Status: Former Tobacco user Quit Date: 2013 Tobacco use type: Cigarette e-Cigarette/Vaping Use: Never Used Second Hand Smoke Exposure: No service: No Current occupational status: employed Cognitive needs: No Hearing needs: No Vision needs: Yes (glasses) Physical Exam Vital Signs: Last Vital Signs Pulse 103 H 03/16/24 09:02 Resp 16 03/16/24 09:02 BP 140/76 H 03/16/24 09:02 Pulse Ox 96 03/16/24 09:02 Oxygen Delivery Method Room Air 03/16/24 09:02 BMI result Body Mass Index 28.4 Const Orientation/consciousness: patient oriented x3 Eyes Pupils: Equal, round and reactive pupils present Neuro Other: mild decreased blink and facial expression Right UE - cog wheel rigidty FFM normal Gait- severely decreased arm swing on the right General: patient oriented x3, tone normal and moves all extremities Cranial nerves: Yes Facial sensation intact/muscles of mastication intact, Yes Equal, round and reactive pupils present, Yes Bilaterally intact EOM present, Yes Nystagmus not present, Yes Normal facial strength present, Yes Midline tongue present, Yes Symmetric palate elevation present and Yes Ability to bilaterally elevate shoulders present Cognition (Neuro): normal cognition Gait exam (Neuro): Other gait observations present (no arm swing on right) Motor exam (neuro): 5/5 motor strength present throughout Deep tendon reflexes (DTR's): Right triceps reflex intensity grade: 2+, Left triceps reflex intensity grade: 2+, Rt Biceps (C5, C6): 2+, Left biceps reflex intensity grade: 2+, Right brachioradialis reflex intensity grade: 2+, Left brachioradialis reflex intensity grade: 2+, Right patellar reflex intensity grade: 2+ and Left patellar reflex intensity grade: 2+ Coordination: [id number] test normal Psych Speech and movement: Pressured speech present Affect: Sad affect present, Anxious affect present and Depressed mood present Attitude: cooperative Thought process: Normal thought process present Thought content: Normal thought content present Insight: Good insight present (Psych) Assessment & Plan Assessment & Plan (1) Hand weakness: Comment: normal JANIS Code(s): R29.898 - Other symptoms and signs involving the musculoskeletal system Category: Medical (2) Generalized anxiety disorder: Code(s): F41.1 - Generalized anxiety disorder Category: Medical (3) Depression: Code(s): F32.A - Depression, unspecified Category: Medical Plan Restart sertraline 50mg qd for depression Call [facility] psychiatry for further management Trial [id number] qhs JANIS scan was normal Medications: New gabapentin 300 mg PO BEDTIME 30 caps 6RF Coding Level of Care Code Est Pt Level 4 (67754) Diagnoses Hand weakness R29.898 Generalized anxiety disorder F41.1 Depression F32.A
[2024-03-16 09:02] VITALS: BP 140/76; PULSE 103; RESP 16; O2SAT 96; BMI 28.4
== END 2024-03-16 09:34 | disposition home or self-care (01) ==
PROVIDERS: PCP Internal Medicine; Visit Provider Psychiatry & Neurology Neurology
DX: R29.898 Other symptoms and signs involving the musculoskeletal system (principal); F41.1 Generalized anxiety disorder; F32.A Depression, unspecified
CPT/HCPCS: 99214

== ENCOUNTER → 2024-03-16 08:43 | Outpatient (BNVA) | payer BC, SELFPAY | PROVIDERS: PCP Internal Medicine; Visit Provider Psychiatry & Neurology Neurology ==

== ENCOUNTER 2024-04-08 07:24 | Outpatient (AMB) | payer BC, SELFPAY ==
[2024-04-08 07:29] VITALS: BP 180/108; PULSE 80; O2SAT 97; BMI 29.2
--- NOTE | 2024-04-08 07:29 | A.OFFPC_ITS ---
Vital Signs 04/08/24 07:29 Height 5 ft 8 in Weight 192 lb BMI 29.2 BP 180/108 H Blood Pressure Location Lt brachial Position Sitting Pulse 80 Pulse Source Pulse Oximeter Pulse Oximetry (%) 97 Oxygen Delivery Method Room Air Intake Visit Reasons: Check up. Blood pressure, cholesterol ec? Energy Trading Analyst Required: No Accompanied by: Self / Same As Patient Allergies No Known Allergies [No Known Allergies*] Allergy (Verified 04/08/24 07:31) Tobacco use date assessed: 04/08/24 Dental Screening Dental Screen Date: 04/08/24 Did you have a dental visit in the last 12 months?: Yes Did you have a dental problem in the last 6 months where you did not have access to dental care?: No Was dental information given to patient?: Patient has dentist HPI Check up. Blood pressure, cholesterol ec? HPI Details 58-year-old male presents to the officeu ss his chronic medical conditions. Since last office visit patient has seen a neurologist. He had extra pyramidal symptoms and his sertraline dosage was increased to 100 mg once a day. Patient reports he has stabilized on it. He is abstaining from alcohol for the past 12 months. Occasionally smokes marijuana. 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 Able to function and do all activities of daily living. [facility] Medical History Depression Behavior concern Hand weakness Hx of hemorrhoids Asthma Tubular adenoma Essential hypertension Alcohol abuse Hypercholesterolemia Surgical History Hx of shoulder surgery Hx of excision of testicular mass H/O hemorrhoidectomy Hx of colonoscopy History of neck surgery Family History Mother No problems noted. Father No problems noted. Social History Housing: Apartment Alcohol intake: current Alcohol intake frequency: holidays/special occasions only Patient Tobacco Use Status: Former Tobacco user Quit Date: 2013 Tobacco use type: Cigarette e-Cigarette/Vaping Use: Never Used Second Hand Smoke Exposure: No service: No Current occupational status: employed Current occupational exposures/hazards: No Cognitive needs: No Hearing needs: No Vision needs: Yes (glasses) Questionnaire PHQ-9 Over the last 2 weeks, how often have you been bothered by any of the following problems? 1. Little interest or pleasure in doing things: not at all 2. Feeling down, depressed, or hopeless: not at all 3. Trouble falling or staying asleep, or sleeping too much: not at all 4. Feeling tired or having little energy: not at all 5. Poor appetite or overeating: not at all 6. Feeling bad about yourself - or that you are a failure or have let yourself or your family down: not at all 7. Trouble concentrating on things, such as reading the newspaper or watching television: not at all 8. Moving or speaking so slowly that other people could have noticed. Or the opposite - being so fidgety or restless that you have been moving around a lot more than usual: not at all 9. Thoughts that you would be better off or of hurting yourself in some way: not at all Total score: 0 Depression Screening Interpretation: Negative Depression Screening Done: Yes Source: Developed by Drs. Goldy Bartlett, Gregoria Herndon, Ye Olivo and colleagues, with an educational devang from [employer]. Thrive Questionnaire Date Thrive assessed: 04/08/24 I am a: Patient What is your living situation today?: I have a steady place to live Within the past 12 months, did the food you bought not last and you didn't have the money to get more?: Never true Within the past 12 months, did you worry whether your food would run out before you got money to buy more?: Never true Do you have trouble paying for medicines?: No Do you have trouble getting transportation to medical appointments?: No Do you have trouble paying your heating and electricity bill?: No Do you have trouble taking care of your child, family member or friend?: No Do you have trouble with day-to-day activities such as bathing, preparing meals, shopping, managing finances, etc.?: No Are you currently unemployed and looking for a job?: No Are you interested in more education?: No Please select the resources that you would like help with: None Currently or been in a relationship where the following occur: no concerns reported THRIVE Score: 0 AUDIT C Alcohol Use Questionnaire (AUDIT-C) 1. How often do you have a drink containing alcohol?: Monthly or less 2. How many drinks containing alcohol do you have on a typical day when you are drinking?: 1 or 2 3. How often do you have six or more drinks on one occasion?: Never Total Score: 1 AMAN-7 AMB Questionnaire AMAN-7 Date AMAN - 7 assessed: 04/08/24 Feeling nervous, anxious, or on edge: 0 = Not at all Not being able to stop or control worryin = Not at all Worrying too much about different things: 0 = Not at all Trouble relaxin = Not at all Being so restless that it is hard to sit still: 0 = Not at all Becoming easily annoyed or irritable: 0 = Not at all Feeling afraid as if something awful might happen: 0 = Not at all Total AMAN-7 score (0-4 normal; 5-9 mild; 10-14 moderate; 15-21 severe): 0 Source: Developed by Drs. Goldy Bartlett, Gregoria Herndon, Ye Olivo and colleagues, with an educational devang from [employer]. Physical exam (Primary Care) Vital Signs: Last Vital Signs Pulse 80 04/08/24 07:29 BP 180/108 H 04/08/24 07:29 Pulse Ox 97 04/08/24 07:29 Oxygen Delivery Method Room Air 04/08/24 07:29 Care Plan Goal for BP management: Elevated BP noted. New medications started. BMI result Body Mass Index 29.2 Tobacco/Smoking Status: Tobacco use Status Tobacco use date assessed 04/08/24 04/08/24 07:34 Patient Tobacco Use Status Former Tobacco user 04/08/24 07:30 Tobacco use type Cigarette 04/08/24 07:30 e-Cigarette/Vaping Use Never Used 04/08/24 07:30 PHQ-9: PHQ-9 Score PHQ-9: Total score 0 04/08/24 07:43 Depression Screening Interpretation: Negative Thrive Assessment: Date of Thrive Assessment Date Thrive assessed 04/08/24 04/08/24 07:43 Currently or been in a relationship where the following occur: no concerns reported Const General: cooperative and healthy appearing Nutritional Appearance: well nourished Orientation/consciousness: patient oriented x3 Limitations: no limitations HENMT Head: Yes normal to inspection Eyes General: appearance normal, both eyes and all related structures Neck Neck: Yes normal visual inspection Chest Chest palpation & inspection: normal palpation of entire chest wall Resp Effort & Inspection: normal respiratory effort Neuro General: patient oriented x3 Assessment and Plan Assessment & Plan (1) Hypercholesterolemia: Code(s): E78.00 - Pure hypercholesterolemia, unspecified Plan: Blood work has been ordered. Will call with the results. (2) Essential hypertension: Code(s): I10 - Essential (primary) hypertension Plan: Elevated blood pressure noted. Lisinopril has been started. Patient has been advised to return for a follow-up visit in 1 month. Compliance with medication urged. (3) Depression: Code(s): F32.A - Depression, unspecified Plan: PHQ-9 reported by patient is not accurate. He needs to be on sertraline once a day. (4) Asthma-COPD overlap syndrome: Code(s): J44.9 - Chronic obstructive pulmonary disease, unspecified Plan: Condition is stable. Orders: Orders Liver Panel Today E78.00 - Pure hypercholesterolemia, unspecified, I10 - Essential (primary) hypertension UA and rflx microscopic Today E78.00 - Pure hypercholesterolemia, unspecified, I10 - Essential (primary) hypertension Basic Metabolic Panel Today E78.00 - Pure hypercholesterolemia, unspecified, I10 - Essential (primary) hypertension Complete Blood Count no Diff Today E78.00 - Pure hypercholesterolemia, unspecified, I10 - Essential (primary) hypertension Lipid Panel Today E78.00 - Pure hypercholesterolemia, unspecified, I10 - Essential (primary) hypertension Thyroid Stimulating Hormone Today E78.00 - Pure hypercholesterolemia, unspecified, I10 - Essential (primary) hypertension Medications: New sertraline 100 mg PO DAILY 90 tabs 1RF lisinopril 10 mg PO DAILY 90 tabs 1RF Coding Level of Care Code Est Pt Level 4 (99937) Complex EM visit Add On G2211 Diagnoses Hypercholesterolemia E78.00 Essential hypertension I10 Depression F32.A Asthma-COPD overlap syndrome J44.9
== END 2024-04-08 08:25 | disposition home or self-care (01) ==
PROVIDERS: PCP Internal Medicine; Visit Provider Internal Medicine
DX: E78.00 Pure hypercholesterolemia, unspecified (principal); I10 Essential (primary) hypertension; F32.A Depression, unspecified; J44.9 Chronic obstructive pulmonary disease, unspecified
CPT/HCPCS: 99214

== ENCOUNTER 2024-04-09 06:12 | Outpatient (REF) | payer BC, SELFPAY ==
[2024-04-09 07:57] LABS: Hematocrit 46.1 % (42.0-52.0); Hemoglobin 16.3 g/dl (14.0-18.0); Mean Corpuscular HGB Conc 35.4 g/dl (31.0-36.0); Mean Corpuscular Hemoglobin 33.2 pg (27.0-33.0); Mean Corpuscular Volume 93.9 fL (80.0-98.0); Mean Platelet Volume 9.5 fL (9.4-12.4); Platelet Count 214 X10*3/uL (160-400); Red Blood Count 4.91 X10*6/uL (4.60-5.80); Red Cell Distribution Width 12.1 % (11.0-16.0); White Blood Count 7.8 X10*3/uL (4.8-10.8)
[2024-04-09 08:33] LABS: Alanine Aminotransferase 30 U/L (0-40); Albumin Level 4.4 g/dL (3.5-5.0); Alkaline Phosphatase 86 U/L (39-117); Anion Gap 15 (12-20); Aspartate Amino Transferase 23 U/L (5-37); Bilirubin Direct 0.2 mg/dL (0.0-0.5); Bilirubin Total 0.7 mg/dL (0.0-1.0); Blood Urea Nitrogen 17 mg/dL (9-16); Calcium 9.2 mg/dL (8.4-10.2); Carbon Dioxide 24 mmol/L (22-29); Chloride 108 mmol/L (96-108); Cholesterol 300 mg/dL (<200); Estimated Glomerular Filt Rate > 60; Glucose Random 100 mg/dL (60-115); HDL Cholesterol 49 mg/dL (>40); LDL Cholesterol Calculated 213 mg/dL (<100); Sodium 143 mmol/L (135-145); Total Protein 7.2 g/dL (6.5-8.0); Triglycerides 194 mg/dL (<150)
[2024-04-09 08:41] LABS: Thyroid Stimulating Hormone 1.73 uIU/mL (0.32-4.0)
== END 2024-04-09 06:13 | disposition home or self-care (01) ==
LOC: HO.LAB 06:12
PROVIDERS: PCP Internal Medicine; Visit Provider Internal Medicine
DX: E78.00 Pure hypercholesterolemia, unspecified (principal); I10 Essential (primary) hypertension
CPT/HCPCS: 36415; 80048; 80061; 80076; 84443; 85027

== ENCOUNTER 2024-04-10 08:14 | Outpatient (REF) | payer BC, SELFPAY ==
[2024-04-10 08:19] LABS: Appearance Urine Clear; Color Urine Yellow; Glucose Urine UA Negative (Negative); Leukocyte Esterase Urine Negative (Negative); Nitrite Urine Negative (Negative); Urine Blood Negative (Negative); Urine Ketones Negative (Negative); Urine Protein Negative (Neg-Trace)
== END 2024-04-10 08:15 | disposition home or self-care (01) ==
LOC: HO.LNP 08:14
PROVIDERS: Visit Provider Internal Medicine
DX: E78.00 Pure hypercholesterolemia, unspecified (principal); I10 Essential (primary) hypertension
CPT/HCPCS: 81003

== ENCOUNTER 2024-05-07 07:51 | Outpatient (AMB) | payer BC, SELFPAY ==
[2024-05-07 08:10] VITALS: BP 122/70; PULSE 68; O2SAT 97; BMI 28.3
--- NOTE | 2024-05-07 08:10 | MHC.PC.OV ---
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 He is compliant with his blood pressure medications. Reports no side effects. Blood pressures have come down to the normal range. Able to function and do all activities of daily living. Blood work done in the last office visit shows markedly elevated cholesterol. He is now willing to take medications to lower the cholesterol. [facility] Medical History (Updated 05/07/24 @ 08:46 by Arthur Dickerson MD) Familial hypercholesterolemia Depression Behavior concern Hand weakness Hx of hemorrhoids Asthma Tubular adenoma Essential hypertension Alcohol abuse Hypercholesterolemia Surgical History Hx of shoulder surgery Hx of excision of testicular mass H/O hemorrhoidectomy Hx of colonoscopy History of neck surgery Family History Mother No problems noted. Father No problems noted. Social History Housing: Apartment Alcohol intake: current Alcohol intake frequency: holidays/special occasions only Patient Tobacco Use Status: Former Tobacco user Tobacco use type: Cigarette e-Cigarette/Vaping Use: Never Used Second Hand Smoke Exposure: No service: No Current occupational status: employed Current occupational exposures/hazards: No Cognitive needs: No Hearing needs: No Vision needs: Yes (glasses) Questionnaire Thrive Questionnaire Date Thrive assessed: 04/08/24 AUDIT C Alcohol Use Questionnaire (AUDIT-C) 1. How often do you have a drink containing alcohol?: Monthly or less 2. How many drinks containing alcohol do you have on a typical day when you are drinking?: 1 or 2 3. How often do you have six or more drinks on one occasion?: Never Total Score: 1 AMAN-7 AMB Questionnaire AMAN-7 Date AMAN - 7 assessed: 04/08/24 Source: Developed by Drs. Goldy Bartlett, Gregoria Herndon, Ye Olivo and colleagues, with an educational devang from [employer]. Physical exam (Primary Care) Vital Signs: Last Vital Signs Pulse 68 05/07/24 08:10 BP 122/70 05/07/24 08:10 Pulse Ox 97 05/07/24 08:10 Oxygen Delivery Method Room Air 05/07/24 08:10 BMI result Body Mass Index 28.3 Tobacco/Smoking Status: Tobacco use Status Tobacco use date assessed 05/07/24 05/07/24 08:15 Patient Tobacco Use Status Former Tobacco user 05/07/24 08:15 Tobacco use type Cigarette 05/07/24 08:15 e-Cigarette/Vaping Use Never Used 05/07/24 08:15 Thrive Assessment: Date of Thrive Assessment Date Thrive assessed 04/08/24 05/07/24 08:15 Const General: cooperative and healthy appearing Nutritional Appearance: well nourished Orientation/consciousness: patient oriented x3 Limitations: no limitations HENMT Head: Yes normal to inspection Eyes General: appearance normal, both eyes and all related structures Neck Neck: Yes normal visual inspection Chest Chest palpation & inspection: normal palpation of entire chest wall Resp Effort & Inspection: normal respiratory effort Neuro General: patient oriented x3 Assessment and Plan Assessment & Plan (1) Familial hypercholesterolemia: Code(s): E78.01 - Familial hypercholesterolemia Plan: Rosuvastatin at 10 mg has been started. Patient has been encouraged to be compliant with medications. (2) Essential hypertension: Code(s): I10 - Essential (primary) hypertension Plan: Blood pressure is in range. Continue current medications. Counseling on the importance of diet and exercise done. Medications: New rosuvastatin 10 mg PO DAILY 90 tabs 1RF Coding Level of Care Code Est Pt Level 4 (97619) Complex EM visit Add On G2211 Diagnoses Familial hypercholesterolemia E78.01 Essential hypertension I10
== END 2024-05-07 08:38 | disposition home or self-care (01) ==
LOC: HO.HMGH 07:51
PROVIDERS: PCP Internal Medicine; Visit Provider Internal Medicine
DX: E78.01 Familial hypercholesterolemia (principal); I10 Essential (primary) hypertension
CPT/HCPCS: 99214

== ENCOUNTER 2024-07-27 07:28 | Outpatient (AMB) | payer BC, SELFPAY ==
--- NOTE | 2024-07-27 07:39 | MHC.OFFVIS ---
Vital Signs 07/27/24 07:40 Height 5 ft 8 in Weight 200 lb 6 oz BMI 30.5 BP 120/72 Blood Pressure Location Rt brachial Position Sitting Respiration 16 Pulse 74 Pulse Source Pulse Oximeter Pulse Oximetry (%) 97 Oxygen Delivery Method Room Air Intake Visit Reasons: 4M follow up-See comments Intake Note: Pt presents for a 4 month follow up for hand weakness. 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 His mood was good with sertraline 100mg qd . He also started biofeedback. His anxiety is better. No tremors. His hand is better. He is still smoking marijuana . He has abnormal sensation in his legs at night that wakes him up- better with gabapentin. He also has abnormal leg movements at night- gabapentin helps. He stopped alcohol . JANIS scan was negative for parkinsons. Previous History-He c/o hand weakness, change in handwriting. He reports that his hand writing has become illegible , drops things frequently form both his hands, has difficulty picking small things, has difficulty with fine motor coordination since 2019. He also reports hand cramping when he hold his pen etc. He denies neck pain or tremors. He denies numbness, tingling, gait issues. He has had urinary urgency and had an episode of incontinence. His work feel his voice is softer and slurred, his facial expression has changed.His work is trying to fire him, he was told that he is rude to his boss.He was reported to for aggressive behavior etc. He has anxiety , depression, cries during the visit. His mood has been affected for 1 year because of his job situation. He reports difficulty falling asleep staying asleep. [facility] Medical History (Updated 07/27/24 @ 07:54 by Laurie Miranda MD) Hypersomnia Snoring Restless legs syndrome (RLS) Familial hypercholesterolemia Depression Behavior concern Hand weakness Hx of hemorrhoids Asthma Tubular adenoma Essential hypertension Alcohol abuse Hypercholesterolemia Surgical History Hx of shoulder surgery Hx of excision of testicular mass H/O hemorrhoidectomy Hx of colonoscopy History of neck surgery Family History Mother No problems noted. Father No problems noted. Social History Housing: Apartment Alcohol intake: current Alcohol intake frequency: holidays/special occasions only Patient Tobacco Use Status: Former Tobacco user Tobacco use type: Cigarette e-Cigarette/Vaping Use: Never Used Second Hand Smoke Exposure: No service: No Current occupational status: employed Current occupational exposures/hazards: No Cognitive needs: No Hearing needs: No Vision needs: Yes (glasses) Physical Exam Vital Signs: Last Vital Signs Pulse 74 07/27/24 07:40 Resp 16 07/27/24 07:40 BP 120/72 07/27/24 07:40 Pulse Ox 97 07/27/24 07:40 Oxygen Delivery Method Room Air 07/27/24 07:40 BMI result Body Mass Index 30.5 Assessment & Plan Assessment & Plan (1) Restless legs syndrome (RLS): Code(s): G25.81 - Restless legs syndrome Category: Medical (2) Generalized anxiety disorder: Code(s): F41.1 - Generalized anxiety disorder Category: Medical (3) Snoring: Code(s): R06.83 - Snoring Category: Medical (4) Hypersomnia: Code(s): G47.10 - Hypersomnia, unspecified Category: Medical Plan Restart sertraline 50mg qd for depression Call [facility] for further management Continue [id number] qhs JANIS scan was normal Home sleep test to r/o sleep apnea Orders: Orders RT home sleep study Today G25.81 - Restless legs syndrome, G47.10 - Hypersomnia, unspecified, R06.83 - Snoring Medications: Changed From gabapentin 300 mg PO BEDTIME 30 caps 6RF To gabapentin 1-2 caps orally bedtime; 60 caps 6RF Refilled sertraline 100 mg PO DAILY 90 tabs 1RF Coding Level of Care Code Est Pt Level 4 (20816) Complex EM visit Add On G2211 Diagnoses Restless legs syndrome (RLS) G25.81 Generalized anxiety disorder F41.1 Snoring R06.83 Hypersomnia G47.10
[2024-07-27 07:40] VITALS: BP 120/72; PULSE 74; RESP 16; O2SAT 97; BMI 30.5
== END 2024-07-27 07:59 | disposition home or self-care (01) ==
PROVIDERS: PCP Internal Medicine; Visit Provider Psychiatry & Neurology Neurology
DX: G25.81 Restless legs syndrome (principal); F41.1 Generalized anxiety disorder; R06.83 Snoring; G47.10 Hypersomnia, unspecified
CPT/HCPCS: 99214

== ENCOUNTER → 2024-07-27 07:28 | Outpatient (BNVA) | payer BC, SELFPAY | PROVIDERS: PCP Internal Medicine; Visit Provider Psychiatry & Neurology Neurology | DX: R29.898 Other symptoms and signs involving the musculoskeletal system (principal); F41.1 Generalized anxiety disorder; F32.A Depression, unspecified ==

== ENCOUNTER 2024-11-05 07:55 | Outpatient (AMB) | payer BC, SELFPAY ==
[2024-11-05 08:12] VITALS: BP 132/80; PULSE 87; O2SAT 96; BMI 30.7
--- NOTE | 2024-11-05 08:12 | A.OFFPC_ITS ---
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 Accompanied by: Self / Same As Patient Allergies No Known Allergies [No Known Allergies*] Allergy (Verified 11/05/24 08:36) Medication List - Last Reconciled 11/05/24 by Arthur Dickerson MD albuterol sulfate 90 mcg/actuation 1 inh inhalation QID PRN fluticasone furoate-vilanterol 200-25 mcg/dose 1 ea inhalation DAILY gabapentin 1-2 caps orally bedtime; lisinopril 10 mg PO DAILY rosuvastatin 10 mg PO DAILY sertraline 100 mg PO DAILY Tobacco use date assessed: 05/07/24 Dental Screening Dental Screen Date: 11/05/24 Did you have a dental visit in the last 12 months?: Yes Did you have a dental problem in the last 6 months where you did not have access to dental care?: No Was dental information given to patient?: Patient has dentist [facility] Medical History (Updated 07/27/24 @ 07:54 by Laurie Miranda MD) Hypersomnia Snoring Restless legs syndrome (RLS) Familial hypercholesterolemia Depression Behavior concern Hand weakness Hx of hemorrhoids Asthma Tubular adenoma Essential hypertension Alcohol abuse Hypercholesterolemia Surgical History (Updated 11/05/24 @ 08:36 by Arthur Dickerson MD) Hx of shoulder surgery Hx of excision of testicular mass H/O hemorrhoidectomy Hx of colonoscopy (~09/07/21) History of neck surgery Family History Mother No problems noted. Father No problems noted. Social History Housing: Apartment Alcohol intake: current Alcohol intake frequency: holidays/special occasions only Patient Tobacco Use Status: Former Tobacco user Tobacco use type: Cigarette e-Cigarette/Vaping Use: Never Used Second Hand Smoke Exposure: No service: No Current occupational status: employed Current occupational exposures/hazards: No Cognitive needs: No Hearing needs: No Vision needs: Yes (glasses) Questionnaire Thrive Questionnaire Date Thrive assessed: 04/08/24 AUDIT C Alcohol Use Questionnaire (AUDIT-C) 2. How many drinks containing alcohol do you have on a typical day when you are drinking?: 1 or 2 3. How often do you have six or more drinks on one occasion?: Never Total Score: 0 AMAN-7 AMB Questionnaire AMAN-7 Date AMAN - 7 assessed: 04/08/24 Source: Developed by Drs. Goldy Bartlett, Gregoria Herndon, Ye Olivo and colleagues, with an educational devang from [employer]. Physical exam (Primary Care) Vital Signs: Last Vital Signs Pulse 87 11/05/24 08:12 BP 132/80 11/05/24 08:12 Pulse Ox 96 11/05/24 08:12 Oxygen Delivery Method Room Air 11/05/24 08:12 BMI result Body Mass Index 30.7 Tobacco/Smoking Status: Tobacco use Status Tobacco use date assessed 05/07/24 11/05/24 08:17 Patient Tobacco Use Status Former Tobacco user 11/05/24 08:17 Tobacco use type Cigarette 11/05/24 08:17 e-Cigarette/Vaping Use Never Used 11/05/24 08:17 Thrive Assessment: Date of Thrive Assessment Date Thrive assessed 04/08/24 11/05/24 08:17 Coding Level of Care Code Est Pt Level 4 (07844) Complex EM visit Add On G2211 Diagnoses Asthma-COPD overlap syndrome J44.9 Generalized anxiety disorder F41.1 Essential hypertension I10 Hypercholesterolemia E78.00 Assessment & Plan Assessment & Plan (1) Asthma-COPD overlap syndrome: Code(s): J44.9 - Chronic obstructive pulmonary disease, unspecified Category: Medical Plan: Xray ordered, short term prednisone. Increase breo to twice a day. Pulmonary consult placed. (2) Generalized anxiety disorder: Code(s): F41.1 - Generalized anxiety disorder Category: Medical Plan: Symptoms well controlled on Sertraline. (3) Essential hypertension: Code(s): I10 - Essential (primary) hypertension Category: Medical Plan: BP in range. (4) Hypercholesterolemia: Code(s): E78.00 - Pure hypercholesterolemia, unspecified Category: Medical Plan: Fasting bw ordered. Continue statins at current dosage. Plan History of Present Illness The patient is a 59-year-old male presenting with issues related to his Chronic Obstructive Pulmonary Disease (COPD) with asthma overlap. 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 He is currently using Brio Ellipta once daily and albuterol as needed for breathing difficulties. Despite this regimen, he is experiencing increased shortness of breath even while at rest and during work activities, such as getting into his truck. The patient attributes some breathing difficulty to weight gain. He lists his weight as 202 pounds. The patient has not smoked cigarettes but has occasionally used marijuana, which he feels contributes to chest discomfort. He has been under the care of Dr. Overton for COPD management but needs to schedule a follow-up appointment. In the past, he has been diagnosed with hypertension and is taking rosuvastatin for elevated cholesterol , with no reported issues or concerns regarding this treatment. Compliant with medications Social History - Employment: The patient is currently employed and facing the possibility of job relocation to [place], which he does not wish to undertake. - Substance use: Reports occasional marijuana use but plans to quit due to chest discomfort. 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 - Weight management: Reports recent weight gain (202 pounds), concerned it may contribute to breathing problems. Review of Systems - Respiratory: Reports shortness of breath during daily activities despite using inhalers (Brio Ellipta and albuterol). Physical Exam General: Appearance normal, both eyes and all related structures Nutritional Appearance: Well nourished Orientation/consciousness: Patient oriented x3 Limitations: Patient reports limitations due to shortness of breath during daily routines Head: Normal to inspection Neck: Normal visual inspection Chest: Normal palpation of entire chest wall Respiratory: Shortness of breath reported, COPD asthma overlap diagnosis Neurology: Patient oriented x3 Results Plan - Continue the current regimen of Brio Ellipta but increase the frequency to twice daily. - Prescribe prednisone for a short duration to manage acute exacerbation of respiratory symptoms. - Order a chest X-ray to investigate the underlying cause of increased shortness of breath. - Arrange fasting blood work as part of routine health monitoring. - Ensure follow-up appointment with Dr. Worrell for ongoing COPD management. - Reinforce smoking cessation, including marijuana, to reduce chest discomfort. - Vaccinations: Confirmed up-to-date with influenza and COVID-19 vaccines. Patient was informed and verbally consented to the use of an ambient scribe for clinic note documentation during this visit. Discussion Notes During the visit, I discussed with the patient the ongoing management of his Chronic Obstructive Pulmonary Disease (COPD) with asthma overlap. The patient was informed about the need to increase Brio Ellipta to twice daily based on his reported shortness of breath despite current therapy. I advised the addition of prednisone for short-term use to alleviate acute symptoms. We discussed the importance of obtaining a chest X-ray to rule out other potential causes for his respiratory symptoms. I emphasized the need to quit smoking marijuana to prevent further chest discomfort. Additionally, I acknowledged the up-to-date status of his influenza and COVID-19 vaccinations. Follow-up care with Dr. Worrell was recommended for comprehensive COPD management, and plans were made to arrange this appointment. Patient Instructions - Take Brio Ellipta twice daily, including at night, as instructed. - Complete the prescribed course of prednisone. - Obtain a chest X-ray along with fasting blood work today. - Quit marijuana use to alleviate chest discomfort. - Schedule a follow-up appointment with Dr. Overton. - Continue taking rosuvastatin and other medications as directed. Orders: Orders Lipid Panel Today J44.9 - Chronic obstructive pulmonary disease, unspecified Liver Panel Today J44.9 - Chronic obstructive pulmonary disease, unspecified Erythrocyte Sedimentation Rate Today J44.9 - Chronic obstructive pulmonary disease, unspecified Prostate Specific Antigen Scr Today J44.9 - Chronic obstructive pulmonary disease, unspecified XR chest 2V Today R05.9 - Cough, unspecified Complete Blood Count no Diff Today J44.9 - Chronic obstructive pulmonary disease, unspecified Basic Metabolic Panel Today J44.9 - Chronic obstructive pulmonary disease, unspecified Thyroid Stimulating Hormone Today J44.9 - Chronic obstructive pulmonary disease, unspecified Referrals Pulmonology Referral J44.9 - Chronic obstructive pulmonary disease, unspecified Medications: Refilled albuterol sulfate 90 mcg/actuation 1 inh inhalation QID PRN 1 ea 1RF shortness of breath or wheezing
== END 2024-11-05 08:29 | disposition home or self-care (01) ==
PROVIDERS: PCP Internal Medicine; Visit Provider Internal Medicine
DX: J44.9 Chronic obstructive pulmonary disease, unspecified (principal); F41.1 Generalized anxiety disorder; I10 Essential (primary) hypertension; E78.00 Pure hypercholesterolemia, unspecified

== ENCOUNTER 2024-11-05 07:55 | Outpatient (REF) | payer BC, SELFPAY ==
[2024-11-05 09:16] LABS: Hematocrit 46.3 % (42.0-52.0); Hemoglobin 16.3 g/dl (14.0-18.0); Mean Corpuscular HGB Conc 35.2 g/dl (31.0-36.0); Mean Corpuscular Volume 93.7 fL (80.0-98.0); Mean Platelet Volume 9.1 fL (9.4-12.4); Platelet Count 254 X10*3/uL (160-400); Red Blood Count 4.94 X10*6/uL (4.60-5.80); Red Cell Distribution Width 12.4 % (11.0-16.0); White Blood Count 7.7 X10*3/uL (4.8-10.8)
[2024-11-05 09:43] LABS: Alanine Aminotransferase 54 U/L (0-40); Albumin Level 4.7 g/dL (3.5-5.0); Alkaline Phosphatase 85 U/L (39-117); Anion Gap 10 (12-20); Aspartate Amino Transferase 37 U/L (5-37); Bilirubin Direct 0.2 mg/dL (0.0-0.5); Bilirubin Total 0.5 mg/dL (0.0-1.0); Blood Urea Nitrogen 16 mg/dL (9-16); Calcium 9.8 mg/dL (8.4-10.2); Carbon Dioxide 29 mmol/L (22-29); Chloride 107 mmol/L (96-108); Cholesterol 229 mg/dL (<200); Estimated Glomerular Filt Rate > 60; Glucose Random 106 mg/dL (60-115); HDL Cholesterol 46 mg/dL (>40); LDL Cholesterol Calculated 125 mg/dL (<100); Potassium 4.5 mmol/L (3.3-5.1); Sodium 141 mmol/L (135-145); Total Protein 7.8 g/dL (6.5-8.0); Triglycerides 290 mg/dL (<150)
[2024-11-05 09:59] LABS: Erythrocyte Sedimentation Rate 6 MM/HR (0-15)
== END 2024-11-05 07:56 | disposition home or self-care (01) ==
LOC: HO.XRAY 07:55
PROVIDERS: PCP Internal Medicine; Visit Provider Internal Medicine
DX: J44.9 Chronic obstructive pulmonary disease, unspecified (principal); F41.1 Generalized anxiety disorder; I10 Essential (primary) hypertension; E78.00 Pure hypercholesterolemia, unspecified; R06.02 Shortness of breath; R05.9 Cough, unspecified; Z12.5 Encounter for screening for malignant neoplasm of prostate
CPT/HCPCS: 36415; 71046; 80048; 80061; 80076; 84153; 84443; 85027; 85652

== ENCOUNTER 2024-11-20 10:02 | Outpatient (AMB) | payer OTHER, SELFPAY ==
--- NOTE | 2024-11-20 10:04 | A.OFFVIS_ITS ---
Vital Signs 11/20/24 10:05 Height 5 ft 8 in Weight 198 lb BMI 30.1 BP 142/78 H Blood Pressure Location Lt brachial Position Sitting Pulse 87 Pulse Source Pulse Oximeter Pulse Oximetry (%) 97 Oxygen Delivery Method Room Air Intake Visit Reasons: COPD Care Team Assistant Required: No Line Construction Superintendent: Line Construction Superintendent offered & declined Allergies No Known Allergies [No Known Allergies*] Allergy (Verified 11/20/24 10:11) Medication List - Last Reconciled 11/20/24 by Monik Gu LPN albuterol sulfate 90 mcg/actuation 1 inh inhalation QID PRN fluticasone furoate-vilanterol 200-25 mcg/dose 1 ea inhalation DAILY gabapentin 1-2 caps orally bedtime; lisinopril 10 mg PO DAILY rosuvastatin 20 mg PO DAILY sertraline 100 mg PO DAILY HPI HPI COPD: Details: William is a pleasant 59-year-old?male, former 40+ pack-year smoker, quit 2011, with underlying asthma/COPD overlap syndrome and environmental allergies.? He previously was under the care of Dr. Overton however lost to follow up. Today he presents to reestablish care. He reports progressively worsening dyspnea at re st as well as exertion, wheezing, chest tightness and cough over the lst 5-6 months. He was previously on Breo 200 mcg and PCP recently instructed to increase to BID as well as placed patient on 60 mg of prednisone x 3 days, with no change in symptoms. He has been using his albuterol MDI BID with no notable change in symptoms. He denies cardiac history. Prior echo 2007 revealed LVEF 55- 60%, slight enlargement of left ventricle and RVSP 30. He denies orthopnea or BLE edema. Prior chest CT 2021 revealed emphysematous changes otherwise unremarkable. Prior PFT 2021 revealed mild reversible obstructive ventilatory defect with no bronchodilator response. Increased residual volume suggests air trapping. Decreased diffusion capacity, 71%, suggests emphysema. 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 [facility] Medical History (Updated 11/20/24 @ 11:36 by Mary Shah NP) Hypersomnia Snoring Restless legs syndrome (RLS) Familial hypercholesterolemia Depression Behavior concern Hand weakness Hx of hemorrhoids Asthma Tubular adenoma Essential hypertension Alcohol abuse Hypercholesterolemia Surgical History (Updated 11/05/24 @ 08:36 by Arthur Dickerson MD) Hx of shoulder surgery Hx of excision of testicular mass H/O hemorrhoidectomy Hx of colonoscopy (~09/07/21) History of neck surgery Family History Mother No problems noted. Father No problems noted. Social History (Updated 11/20/24 @ 10:15 by Monik Gu LPN) Housing: Apartment Alcohol intake: current Alcohol intake frequency: holidays/special occasions only Patient Tobacco Use Status: Former Tobacco user Tobacco use type: Cigarette Cigarette Packs Per Day: 2.5 Years Smoked: 30 e-Cigarette/Vaping Use: Never Used Second Hand Smoke Exposure: No service: No Current occupational status: employed Current occupational exposures/hazards: No Cognitive needs: No Hearing needs: No Vision needs: Yes (glasses) Review of Systems Const Denies chills, Denies excessive sweating, Denies fever(s), Denies headache(s) and Denies night sweats Eyes Denies dry eyes, Denies irritation and Denies itchy eyes ENT Reports Normal hearing present, Denies headache(s), Denies nasal congestion, Denies nasal discharge, Denies post nasal drip and Denies sore throat Card Denies chest pain, Denies chest pain at rest, Denies chest pain with activity, Denies claudication, Denies leg edema, Denies orthopnea and Denies paroxysmal nocturnal dyspnea Resp Denies chest congestion, Denies excessive phlegm production, Denies pain on inspiration, Denies pain with cough and Denies stridor Musc Denies myalgias Neuro Reports Normal hearing present and Denies headache(s) Endo Denies excessive sweating Efra/Lymph Denies lymphadenopathy Aller/Immun Denies itchy eyes and Denies seasonal rhinorrhea Physical Exam Vital Signs: Last Vital Signs Pulse 87 11/20/24 10:05 BP 142/78 H 11/20/24 10:05 Pulse Ox 97 11/20/24 10:05 Oxygen Delivery Method Room Air 11/20/24 10:05 BMI result Body Mass Index 30.1 Const General: cooperative, healthy appearing, comfortable, no acute distress, well developed and alert Orientation/consciousness: patient oriented x3 Limitations: no limitations HEENT Head: Yes normal to inspection, Yes normocephalic and Yes atraumatic Ears: hearing grossly normal bilaterally and external ears normal Eyes General: appearance normal, both eyes and all related structures Eyelids: Yes eyelids normal Sclerae: sclerae normal EOM: EOMs intact bilaterally Neck Neck: Yes normal visual inspection and Yes no lymphadenopathy Lymphatic: no lymphadenopathy noted Chest Chest palpation & inspection: normal inspection of the chest Resp Effort & Inspection: normal respiratory effort, able to speak in complete sentences, no audible wheezes, no cough, no stridor, not tachypneic, no tripod positioning and no use of accessory muscles Auscultation: diminished lung sounds Cardio Jugular venous distension: no JVD Rate: regular rate Rhythm: regular rhythm Skin Other: warm, dry General skin exam: no rashes or lesions noted Neuro General: patient oriented x3 Cranial nerves: Yes Normal hearing present Cognition (Neuro): normal cognition Gait exam (Neuro): Normal gait present Extrem General: Yes normal to inspection, Yes capillary refill normal, Yes no clubbing, cyanosis or edema and Yes no pedal edema Psych Appearance: grossly normal and well kempt Speech and movement: Normal speech and movement present and Clear speech present Affect: normal affect Attitude: cooperative Thought process: Normal thought process present Thought content: Normal thought content present Insight: Good insight present (Psych) Judgement: Good judgement present (Psych) Assessment & Plan Assessment & Plan (1) Asthma-COPD overlap syndrome: Code(s): J44.9 - Chronic obstructive pulmonary disease, unspecified Category: Medical (2) Dyspnea on exertion: Code(s): R06.00 - Dyspnea, unspecified Category: Medical (3) Personal history of tobacco use: Code(s): Z87.891 - Personal history of nicotine dependence Category: Social Hx Plan William presents for progressively worsening dyspnea. Will switch Breo to Trelegy. He is aware if symptoms worsen to call office or seek emergent care. Will also send for updated PFT to reassess lung function and send for chest CT to assess for any underlying parenchymal condition contributing to worsening symptoms. Would also consider underlying cardiac contribution given suboptimal effect with prednisone and albuterol. Prior echo performed in 2007, will send for repeat echo. All questions were answered and patient is in agreement of plan. Will follow up in 6-8 weeks or sooner if needed. Orders: Orders PFT pulmonary function test Today J44.9 - Chronic obstructive pulmonary disease, unspecified CA echo transthoracic complete Today R06.00 - Dyspnea, unspecified CT chest wo IV con Today R05.3 - Chronic cough, Z87.891 - Personal history of nicotine dependence Medications: New fqmergwfdcz-fuwbndgad-ualluruw 200-62.5-25 mcg (Trelegy Ellipta) 1 inh inhalation DAILY 60 ea 6RF Discontinued fluticasone furoate-vilanterol 200-25 mcg/dose Discontinued Reason: Patient Completed Course 1 ea inhalation DAILY 3 ea 1RF Coding Level of Care Code Est Pt Level 4 (53717) Complex EM visit Add On G2211 Diagnoses Asthma-COPD overlap syndrome J44.9 Dyspnea on exertion R06.00 Personal history of tobacco use Z87.89
[2024-11-20 10:05] VITALS: BP 142/78; PULSE 87; O2SAT 97; BMI 30.1
== END 2024-11-20 10:53 | disposition home or self-care (01) ==
PROVIDERS: PCP Internal Medicine; Referring Provider Internal Medicine; Visit Provider Nurse Practitioner Family
DX: J44.9 Chronic obstructive pulmonary disease, unspecified (principal); R06.00 Dyspnea, unspecified; Z87.891 Personal history of nicotine dependence
CPT/HCPCS: 99214; G2211

== ENCOUNTER → 2024-12-02 07:55 | Outpatient (REF) | payer OTHER, SELFPAY ==
--- OUTSIDE RECORDS SUMMARY | 2024-12-02 07:57 | XMS_ITS | Clinical Summary ---
Author Organization [facility] ity Address [address] [place] [address] Care Team Providers Care Predator Control Trapper Name Role Phone Unavailable Primary Care Provider Unavailabl e Social History Tobacco Use Types Packs/Day Years Used Date Smoking Tobacco: Never Assessed Sex and Gender Information Value Date Recorded Sex Assigned at Not on file Gender Identity Not on file Sexual Orientation Not on file Plan of Treatment Health Maintenance Due Date Last Done Comments DTaP,Tdap,and Td Vaccines (1 - Tdap) 1984 Hepatitis B Vaccines (1 of 3 - 19+ 3-dose series) 1984 Zoster Vaccines (1 of 2) 2015 Cholesterol Screening (Lipid Panel) 10/10/2022 Colorectal Cancer Screening: Colonoscopy 10/10/2022 Depression Screening 10/10/2022 HIV Screening 10/10/2022 Hepatitis C Screening 10/10/2022 Social Influencers of Health Screening 10/10/2022 COVID-19 Vaccine ( - 2023-2 5 season) 2024 Influenza Vaccine (#1) 2024 RSV Immunization Patients 60 + Years Old (1 - 1-dose 75+ series) 2040 HIB Vaccines Aged Out No longer eligi ble based on patient's age to complete this topic HPV Vaccines Aged Out No longer eligi ble based on patient's age to complete this topic Hepatitis A Vaccines Aged Out No long er eligible based on patient's age to complete this topic IPV Vaccines Aged Out No longer eligi ble based on patient's age to complete this topic MMR Vaccines Aged Out No longer eligi ble based on patient's age to complete this topic Meningococcal ACWY Vaccine Aged Out N o longer eligible based on patient's age to complete this topic Pneumococcal Vaccine: Pediat rics (0 to 5 Years) and At-Risk Patients (6 to 64 Years) Aged Out No longer eligible b ased on patient's age to complete this topic RSV Immunization Patients Un leandra 20 months Aged Out No longer eligible b ased on patient's age to complete this topic Varicella Vaccines Aged Out No longer eligible based on patient's age to complete this topic
--- NOTE | 2024-12-02 07:58 | CA_ITS ---
Transthoracic Echocardiogram Patient (Last, First, Middle): Tom Summers, Gender: Male Date of : 1965 Age: 59 Procedure Date: 12/02/2024 Procedure Type: Transthoracic Echocardiogram Location: OP Height: 172.72 cm Weight: 88.45 kg BSA: 2.02 m2 Heart Rate: bpm BP: 130 / 80 mmHg Supervisor Machine Workers: BARBARA Referring MD: Mary Shah NEUROPHYSIOLOGICAL TECHNICIAN Plush Brusher: James Wang MD Symptoms: R06.00 - Dyspnea, unspecified Study Quality: Adequate ECG Rhythm: Sinus Conclusions: - Essentially normal study Findings Left Ventricle Normal left ventricular size, thickness, and systolic function. The visually estimated ejection fraction is between 60-65%. Spectral Doppler is indicative of a normal filling pattern. Right Ventricle Normal right ventricular cavity size and systolic function. Atria The left atrium is normal in size. There is no evidence of interatrial shunt. The right atrium is normal in size. Aortic Valve Normal aortic valve structure and function. There is no aortic valve stenosis. There is no aortic valve regurgitation. Mitral Valve Normal mitral valve structure and function. There is trace mitral valve regurgitation. There is no mitral valve stenosis. Pulmonic Valve The pulmonic valve is likely normal. Tricuspid Valve Normal tricuspid valve structure. There is trace tricuspid valve regurgitation. The right ventricular systolic pressure is normal. The right ventricular systolic pressure is 22 mmHg. Normal right atrial pressure. There is no evidence of pulmonary hypertension. Great Vessels All visible segments of the aorta are normal in size. The pulmonary artery was not well visualized. Venous The inferior vena cava is normal in size and collapses greater than 50% with inspiration. Pericardium/Pleural There is no evidence of pericardial effusion. Measurements 2D Linear Measurements IVSd: 1.05 0.6-0.9/0.6-1.0 cm LVIDd: 4.56 3.9-5.3/4.2-5.9 cm LVIDd Index: 2.26 2.4-3.2/2.2-3.1 cm/m2 LVIDs: 3.31 2.0-3.6 cm LVPWd: 0.96 0.7-1.1 cm LA Diam: 3.50 2.7-3.8/3.0-4.0 cm LAIDs Index: 1.73 1.5-2.3 cm/m2 LV Mass: 195.65 67-162/88-224 g LV Mass Index: 96.86 43-95/49-115 g/m2 LVOT Diam: 2.30 3.0+(-)1.3 cm 2D Systolic Function EF 4C: 65.30 >55% EF 2C: 58.70 >55% EF BiP: 63.90 >55% Mitral Valve MV Pk E: 0.80 MV PK A: 0.65 MV Decel Time: 206.00 E/A: 1.20 E'Lateral: 10.20 E'Medial: 7.29 E/E' Med: 11.00 E/E' Lat: 7.80 PHT: 60.00 MVA PHT: 3.67 Decel Vernon: 3.87 Aortic Valve AoV Pk Len: 1.42 AoV Mn Len: 0.93 AoV VTI: 0.36 AoV Pk Grad: 8.00 Aov Mn Grad: 4.00 NICK Cont.VTI: 2.65 LVOT LVOT Pk Len: 0.91 LVOT Mn Len: 0.64 LVOT VTI: 0.23 LVOT Pk Grad: 3.00 LVOT Mn Grad: 2.00 LVOT Diam: 2.30 LVOT Area: 4.15 Diastolic Function MV Pk E: 0.80 MV Pk A: 0.65 E/A: 1.20 E'Medial: 7.29 E/E' Med: 11.00 E' Laterial: 10.20 E/E' Lat: 7.80 Right Ventricle TAPSE (mm): 26.90 TVS' Len: 12.10 Tricuspid Valve TR Pk Len: 1.85 TR Pk Grad: 14.00 RA Press: 8.00 RVSP: 22.00 Great Vessels Aorta Sinus of Valsalva: 3.52 2.0-3.[address] [place]: 2.46 1.7-3.4 cm Ao Asc: 3.30 2.1-3.4 cm Updated in Other Vendor System with Status of Final James Wang MD electronically signed on 12/02/2024 3:00:24 PM with status of Final
== END ==
LOC: HO.CARD 07:55
PROVIDERS: PCP Internal Medicine; Visit Provider Nurse Practitioner Family
DX: R06.00 Dyspnea, unspecified (principal)
CPT/HCPCS: 93306

== ENCOUNTER → 2024-12-02 07:58 | Outpatient (BNV) | payer OTHER, SELFPAY | PROVIDERS: PCP Internal Medicine; Visit Provider Internal Medicine Cardiovascular Disease | DX: R06.02 Shortness of breath (principal) | CPT/HCPCS: 93306 ==

== ENCOUNTER 2024-12-18 07:19 | Outpatient (REF) | payer OTHER, SELFPAY | END 2024-12-18 07:20 | disposition home or self-care (01) | LOC: HO.CT 07:19 | PROVIDERS: PCP Internal Medicine; Visit Provider Nurse Practitioner Family | DX: R05.3 Chronic cough (principal); Z87.891 Personal history of nicotine dependence ==

== ENCOUNTER → 2024-12-18 07:22 | Outpatient (BNV) | payer OTHER, SELFPAY | PROVIDERS: PCP Internal Medicine; Visit Provider Specialist | DX: J43.9 Emphysema, unspecified (principal) | CPT/HCPCS: 71250 ==

== ENCOUNTER 2025-01-12 12:58 | Outpatient (REF) | payer OTHER, SELFPAY ==
--- NOTE | 2025-01-12 14:00 | PFT_ITS ---
Indication: Dyspnea Spirometry [FEV1 to FVC 66%; FEV1 2.68 L; FVC 4.07 L. No significant response to bronchodilators noted.] Lung Volumes [Total lung capacity 89% predicted; residual volume 101% predicted] Diffusion Capacity [DLCO 70% predicted] Flow Volume Loops [Concavity of the expiratory limb suggestive of an obstructive physiology] Comparisons [None] Interpretation [There is an obstructive ventilatory defect consistent with moderate COPD. No significant response to bronchodilators noted. Lung volumes are normal. The patient does have a mild diffusion impairment. Clinical correlation warranted.] MTDD
[2025-01-12 14:51] VITALS: PULSE 60
--- OUTSIDE RECORDS SUMMARY | 2025-01-12 16:05 | XMS_ITS | Clinical Summary ---
Author Organization [facility] ity Address [address] [place] [address] Care Team Providers Care Field Care Coordinator Name Role Phone Unavailable Primary Care Provider Unavailabl e Social History Tobacco Use Types Packs/Day Years Used Date Smoking Tobacco: Never Assessed Sex and Gender Information Value Date Recorded Sex Assigned at Not on file Legal Sex Male 2:29 PM EST Gender Identity Not on file Sexual Orientation Not on file Plan of Treatment Health Maintenance Due Date Last Done Comments DTaP,Tdap,and Td Vaccines (1 - Tdap) 1984 Hepatitis B Vaccines (1 of 3 - 19+ 3-dose series) 1984 Pneumococcal Vaccine: 50+ Ye ars (1 of 1 - PCV) 2015 Zoster Vaccines (1 of 2) 2015 Cholesterol Screening (Lipid Panel) 10/10/2022 Colorectal Cancer Screening: Colonoscopy 10/10/2022 Depression Screening 10/10/2022 HIV Screening 10/10/2022 Hepatitis C Screening 10/10/2022 Social Influencers of Health Screening 10/10/2022 COVID-19 Vaccine (1 - 2023-2 5 season) 2024 Influenza Vaccine [...] patient's age to complete this topic Meningococcal B Vacine Aged Out No lo nger eligible based on patient's age to complete [...]
== END 2025-01-12 12:59 | disposition home or self-care (01) ==
LOC: HO.RESP 12:58
PROVIDERS: PCP Internal Medicine; Visit Provider Nurse Practitioner Family
DX: J44.9 Chronic obstructive pulmonary disease, unspecified (principal)
CPT/HCPCS: 94010; 94640; 94727; 94729

== ENCOUNTER → 2025-01-12 14:00 | Outpatient (BNV) | payer OTHER, SELFPAY | PROVIDERS: PCP Internal Medicine; Visit Provider Hospitalist | DX: J44.9 Chronic obstructive pulmonary disease, unspecified (principal) | CPT/HCPCS: 94060; 94727; 94729 ==

== ENCOUNTER 2025-01-15 10:35 | Outpatient (AMB) | payer OTHER, SELFPAY ==
[2025-01-15 11:04] VITALS: BP 136/62; PULSE 96; O2SAT 96; BMI 30.3
--- NOTE | 2025-01-15 11:04 | MHC.OFFVIS ---
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 offered & declined Accompanied by: Self / Same As Patient Allergies No Known Allergies [No Known Allergies*] Allergy (Verified 01/15/25 11:09) Medication List - Last Reconciled 01/15/25 by Monik Gu LPN albuterol sulfate 90 mcg/actuation 1 inh inhalation QID PRN fosmpobiqml-qeiycyeaf-dawyawws 200-62.5-25 mcg (Trelegy Ellipta) 1 inh inhalation DAILY gabapentin 1-2 caps orally bedtime; lisinopril 10 mg PO DAILY rosuvastatin 20 mg PO DAILY sertraline 100 mg PO DAILY HPI HPI asthma: Details: William is a pleasant 59-year-old?male, former 40+ pack-year smoker, quit 2011, with underlying asthma/COPD overlap syndrome and environmental allergies.? He reports progressively worsening dyspnea at rest as well as exertion, wheezing, chest tightness and cough over the last 5-6 months with suboptimal effect with Breo and albuterol MDI. He continues to report dyspnea on minimal exertion with associated dry cough despite switching to Breo. 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 Today he presents to review chest CT, PFT and echo. He denies any visits to urgent care or hospitalizations related to respiratory distress since the last visit. [facility] Medical History (Updated 11/20/24 @ 11:36 by Mary Shah NP) Hypersomnia Snoring Restless legs syndrome (RLS) Familial hypercholesterolemia Depression Behavior concern Hand weakness Hx of hemorrhoids Asthma Tubular adenoma Essential hypertension Alcohol abuse Hypercholesterolemia Surgical History (Updated 11/05/24 @ 08:36 by Arthur Dickerson MD) Hx of shoulder surgery Hx of excision of testicular mass H/O hemorrhoidectomy Hx of colonoscopy (~09/07/21) History of neck surgery Family History Mother No problems noted. Father No problems noted. Social History Housing: Apartment Alcohol intake: current Alcohol intake frequency: holidays/special occasions only Patient Tobacco Use Status: Former Tobacco user Tobacco use type: Cigarette Cigarette Packs Per Day: 2.5 Years Smoked: 30 e-Cigarette/Vaping Use: Never Used Second Hand Smoke Exposure: No service: No Current occupational status: employed Current occupational exposures/hazards: No Cognitive needs: No Hearing needs: No Vision needs: Yes (glasses) Review of Systems Const Denies chills, Denies excessive sweating, Denies fever(s), Denies headache(s) and Denies night sweats Eyes Denies dry eyes, Denies irritation and Denies itchy eyes ENT Reports Normal hearing present and Denies headache(s) Card Denies chest pain, Denies chest pain at rest, Denies chest pain with activity, Denies claudication, Denies leg edema, Denies orthopnea and Denies paroxysmal nocturnal dyspnea Resp Denies chest congestion, Denies excessive phlegm production, Denies pain on inspiration, Denies pain with cough and Denies stridor Musc Denies myalgias Neuro Reports Normal hearing present and Denies headache(s) Endo Denies excessive sweating Efra/Lymph Denies lymphadenopathy Aller/Immun Denies itchy eyes and Denies seasonal rhinorrhea Physical Exam Vital Signs: Last Vital Signs Pulse 96 01/15/25 11:04 BP 136/62 01/15/25 11:04 Pulse Ox 96 01/15/25 11:04 Oxygen Delivery Method Room Air 01/15/25 11:04 BMI result Body Mass Index 30.3 Const General: cooperative, healthy appearing, comfortable, no acute distress, well developed and alert Orientation/consciousness: patient oriented x3 Limitations: no limitations HEENT Head: Yes normal to inspection, Yes normocephalic and Yes atraumatic Ears: hearing grossly normal bilaterally and external ears normal Eyes General: appearance normal, both eyes and all related structures Eyelids: Yes eyelids normal Sclerae: sclerae normal EOM: EOMs intact bilaterally Neck Neck: Yes normal visual inspection and Yes no lymphadenopathy Lymphatic: no lymphadenopathy noted Chest Chest palpation & inspection: normal inspection of the chest Resp Effort & Inspection: normal respiratory effort, able to speak in complete sentences, no audible wheezes, no cough, no stridor, not tachypneic, no tripod positioning and no use of accessory muscles Auscultation: diminished lung sounds Cardio Jugular venous distension: no JVD Rate: regular rate Rhythm: regular rhythm Skin Other: warm, dry General skin exam: no rashes or lesions noted Neuro General: patient oriented x3 Cranial nerves: Yes Normal hearing present Cognition (Neuro): normal cognition Gait exam (Neuro): Normal gait present Extrem General: Yes normal to inspection, Yes capillary refill normal, Yes no clubbing, cyanosis or edema and Yes no pedal edema Psych Appearance: grossly normal and well kempt Speech and movement: Normal speech and movement present and Clear speech present Affect: normal affect Attitude: cooperative Thought process: Normal thought process present Thought content: Normal thought content present Insight: Good insight present (Psych) Judgement: Good judgement present (Psych) Results Reviewed Results Reviewed: [address] [address] [address] Scan Report Signed Patient: Tom Summers MR#: [id number] : 1965 Acct:[id number] Age/Sex: 59 / M ADM Date: 12/18/24 Loc: HO.CT Attending Dr: Mary Shah NP Ordering Physician: Mary Shah NP Date of Service: 12/18/24 Procedure(s): CT chest wo IV con Accession Number(s): [id number] cc: Mary Shah NP; Arthur Dickerson MD~ Report Number: [id number]: Total DLP = 185.00 mGy-cm CLINICAL HISTORY: Z87.891 - Personal history of nicotine dependence CT chest without contrast Comparison: 10/08/2022 Findings: The heart is normal size. The visualized thyroid and mediastinum are unremarkable. The lungs are clear. There are findings suggesting centrilobular pulmonary bullous disease. The upper abdomen is unremarkable. No acute fractures. IMPRESSION: 1. Pulmonary bullous disease. This document has been electronically signed by: Moise Morton MD on 12/19/2024 07:59:49 Dictated By: Moise Morton MD Signed By: <Electronically signed by Mosie Morton MD in OV> 12/19/24800 DD/ 8 TD/TT: 12/19/24758 Assistant Professor Of Dietetics: [address] [address] Cardiology Report Signed Patient: Tom Summers MR#: [id number] : 1965 Acct:[id number] Age/Sex: 59 / M ADM Date: 12/02/24 Loc: [facility] Attending Dr: Mary Shah NP Ordering Physician: Mary Shah NP Date of Service: 12/02/24 Procedure(s): CA echo transthoracic complete Accession Number(s): cc: Mary Shah NP~ Transthoracic Echocardiogram Patient (Last, First, Middle): Tom Summers, Gender: Male Date of : 1965 Age: 59 Procedure Date: 12/02/2024 Procedure Type: Transthoracic Echocardiogram Location: OP Height: 172.72 cm Weight: 88.45 kg BSA: 2.02 m2 Heart Rate: bpm BP: 130 / 80 mmHg Chrome Tanning Drum Operator: BARBARA Referring MD: Mary Shah NP Poultry Buyer: James Wang MD Symptoms: R06.00 - Dyspnea, unspecified Study Quality: Adequate ECG Rhythm: Sinus Conclusions: - Essentially normal study Findings Left Ventricle Normal left ventricular size, thickness, and systolic function. The visually estimated ejection fraction is between 60-65%. Spectral Doppler is indicative of a normal filling pattern. Right Ventricle Normal right ventricular cavity size and systolic function. Atria The left atrium is normal in size. There is no evidence of interatrial shunt. The right atrium is normal in size. Aortic Valve Normal aortic valve structure and function. There is no aortic valve stenosis. There is no aortic valve regurgitation. Mitral Valve Normal mitral valve structure and function. There is trace mitral valve regurgitation. There is no mitral valve stenosis. Pulmonic Valve The pulmonic valve is likely normal. Tricuspid Valve Normal tricuspid valve structure. There is trace tricuspid valve regurgitation. The right ventricular systolic pressure is normal. The right ventricular systolic pressure is 22 mmHg. Normal right atrial pressure. There is no evidence of pulmonary hypertension. Great Vessels All visible segments of the aorta are normal in size. The pulmonary artery was not well visualized. Venous The inferior vena cava is normal in size and collapses greater than 50% with inspiration. Pericardium/Pleural There is no evidence of pericardial effusion. Measurements 2D Linear Measurements IVSd: 1.05 0.6-0.9/0.6-1.0 cm LVIDd: 4.56 3.9-5.3/4.2-5.9 cm LVIDd Index: 2.26 2.4-3.2/2.2-3.1 cm/m2 LVIDs: 3.31 2.0-3.6 cm LVPWd: 0.96 0.7-1.1 cm LA Diam: 3.50 2.7-3.8/3.0-4.0 cm LAIDs Index: 1.73 1.5-2.3 cm/m2 LV Mass: 195.65 67-162/88-224 g LV Mass Index: 96.86 43-95/49-115 g/m2 LVOT Diam: 2.30 3.0+(-)1.3 cm 2D Systolic Function EF 4C: 65.30 >55% EF 2C: 58.70 >55% EF BiP: 63.90 >55% Mitral Valve MV Pk E: 0.80 MV PK A: 0.65 MV Decel Time: 206.00 E/A: 1.20 E'Lateral: 10.20 E'Medial: 7.29 E/E' Med: 11.00 E/E' Lat: 7.80 PHT: 60.00 MVA PHT: 3.67 Decel Frederick: 3.87 Aortic Valve AoV Pk Lne: 1.42 AoV Mn Len: 0.93 AoV VTI: 0.36 AoV Pk Grad: 8.00 Aov Mn Grad: 4.00 NICK Cont.VTI: 2.65 LVOT LVOT Pk Len: 0.91 LVOT Mn Len: 0.64 LVOT VTI: 0.23 LVOT Pk Grad: 3.00 LVOT Mn Grad: 2.00 LVOT Diam: 2.30 LVOT Area: 4.15 Diastolic Function MV Pk E: 0.80 MV Pk A: 0.65 E/A: 1.20 E'Medial: 7.29 E/E' Med: 11.00 E' Laterial: 10.20 E/E' Lat: 7.80 Right Ventricle TAPSE (mm): 26.90 TVS' Len: 12.10 Tricuspid Valve TR Pk Len: 1.85 TR Pk Grad: 14.00 RA Press: 8.00 RVSP: 22.00 Great Vessels Aorta Sinus of Valsalva: 3.52 2.0-3.[address] Ridge: 2.46 1.7-3.4 cm Ao Asc: 3.30 2.1-3.4 cm Updated in Other Vendor System with Status of Final James Wang MD electronically signed on 12/02/2024 3:00:24 PM with status of Final Dictated By: James Wang MD Signed By: <Electronically signed by James Wang MD in OV> 12/02/24 1500 DD/ 0812 TD/TT: Assistant Professor Of Dietetics: Assessment & Plan Assessment & Plan (1) Asthma-COPD overlap syndrome: Code(s): J44.9 - Chronic obstructive pulmonary disease, unspecified Category: Medical (2) Dyspnea on exertion: Code(s): R06.00 - Dyspnea, unspecified Category: Medical (3) Personal history of tobacco use: Code(s): Z87.891 - Personal history of nicotine dependence Category: Social Hx Plan William continues to report suboptimal effect with Trelegy, continues with dyspnea on exertion. Encouraged use of albuterol MDI, and will add nebulized therapy DuoNeb PRN. Discussed the potential for occupational exposures contributing to symptoms however should have cardiac etiologies ruled out. Reviewed echo which did not reveal significant changes and RVSP down to 22 from 30. Will send for cardiology referral as patient with CAD, recently had statin increased by PCP. Reviewed PFT which revealed an obstructive ventilatory defect consistent with moderate COPD. No significant response to bronchodilators noted. Lung volumes are normal. The patient does have a mild diffusion impairment, 70% suggestive of emphysema. Chest CT reviewed which revealed emphysematous changes otherwise unremarkable. Will repeat in one year to assess stability. All questions were answered and patient is in agreement of plan. Will follow up in 6-8 weeks or sooner if needed. Orders: Orders CT chest wo IV con 11 Months Z87.891 - Personal history of nicotine dependence Referrals Cardiology Referral R06.00 - Dyspnea, unspecified Medications: New ipratropium-albuterol 0.5 mg-3 mg(2.5 mg base)/3 mL 3 mL inhalation Q6H PRN 180 mL 0RF wheezing Coding Level of Care Code Est Pt Level 4 (91880) Diagnoses Asthma-COPD overlap syndrome J44.9 Dyspnea on exertion R06.00 Personal history of tobacco use Z87.998
--- OUTSIDE RECORDS SUMMARY | 2025-01-15 11:57 | XMS_ITS | Clinical Summary ---
Author Organization [facility] ity Address [address] [place] [address] Care Team Providers Care Anesthesia Technician Name Role Phone Unavailable Primary Care Provider [...]
== END 2025-01-15 11:37 | disposition home or self-care (01) ==
PROVIDERS: PCP Internal Medicine; Visit Provider Nurse Practitioner Family
DX: J44.9 Chronic obstructive pulmonary disease, unspecified (principal); R06.00 Dyspnea, unspecified; Z87.891 Personal history of nicotine dependence
CPT/HCPCS: 99214

== ENCOUNTER → 2025-01-15 10:35 | Outpatient (BNVA) | payer OTHER, SELFPAY | PROVIDERS: PCP Internal Medicine; Visit Provider Nurse Practitioner Family ==

== ENCOUNTER 2025-01-28 08:19 | Outpatient (AMB) | payer OTHER, SELFPAY ==
--- NOTE | 2025-01-28 08:26 | A.OFFPC_ITS ---
Vital Signs 01/28/25 08:29 Height 5 ft 8 in Weight 192 lb 8 oz BMI 29.3 BP 110/60 Blood Pressure Location Lt brachial Position Sitting Pulse 97 Pulse Source Pulse Oximeter Temp 97.1 F Temp Source Temporal Artery Scan Pulse Oximetry (%) 93 Oxygen Delivery Method Room Air Intake Visit Reasons: 3mth f/u Intake Note: Patient is here to follow up on RLS, Asthma, HTN. 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 per policy Accompanied by: Self / Same As Patient Allergies No Known Allergies [No Known Allergies*] Allergy (Verified 01/28/25 09:05) Medication List - Last Reconciled 01/28/25 by Arthur Dickerson MD albuterol sulfate 90 mcg/actuation 1 inh inhalation QID PRN eafmtsxizzm-qhwwnenex-tmsltzry 200-62.5-25 mcg (Trelegy Ellipta) 1 inh inhalation DAILY gabapentin 1-2 caps orally bedtime; ipratropium-albuterol 0.5 mg-3 mg(2.5 mg base)/3 mL 3 mL inhalation Q6H PRN lisinopril 10 mg PO DAILY rosuvastatin 20 mg PO DAILY sertraline 100 mg PO DAILY Tobacco use date assessed: 01/28/25 Dental Screening Dental Screen Date: 01/28/25 Did you have a dental visit in the last 12 months?: Yes Did you have a dental problem in the last 6 months where you did not have access to dental care?: No Was dental information given to patient?: Patient has dentist [facility] Medical History (Updated 11/20/24 @ 11:36 by Mary Shah NP) Hypersomnia Snoring Restless legs syndrome (RLS) Familial hypercholesterolemia Depression Behavior concern Hand weakness Hx of hemorrhoids Asthma Tubular adenoma Essential hypertension Alcohol abuse Hypercholesterolemia Surgical History Hx of shoulder surgery Hx of excision of testicular mass H/O hemorrhoidectomy Hx of colonoscopy (~09/07/21) History of neck surgery Family History Mother No problems noted. Father No problems noted. Social History Housing: Apartment Alcohol intake: current Alcohol intake frequency: holidays/special occasions only Patient Tobacco Use Status: Former Tobacco user Tobacco use type: Cigarette Cigarette Packs Per Day: 2.5 Years Smoked: 30 e-Cigarette/Vaping Use: Never Used Second Hand Smoke Exposure: Yes service: No Current occupational status: employed Current occupational exposures/hazards: No Cognitive needs: No Hearing needs: No Vision needs: Yes (glasses) Questionnaire PHQ-9 Over the last 2 weeks, how often have you been bothered by any of the following problems? 1. Little interest or pleasure in doing things: not at all 2. Feeling down, depressed, or hopeless: not at all 3. Trouble falling or staying asleep, or sleeping too much: not at all 4. Feeling tired or having little energy: not at all 5. Poor appetite or overeating: not at all 6. Feeling bad about yourself - or that you are a failure or have let yourself or your family down: not at all 7. Trouble concentrating on things, such as reading the newspaper or watching television: not at all 8. Moving or speaking so slowly that other people could have noticed. Or the opposite - being so fidgety or restless that you have been moving around a lot more than usual: not at all 9. Thoughts that you would be better off or of hurting yourself in some way: not at all Total score: 0 Depression Screening Interpretation: Negative Depression Screening Done: Yes Source: Developed by Drs. Goldy Bartlett, Gregoria Herndon, Ye Olivo and colleagues, with an educational devang from [employer]. Thrive Questionnaire Date Thrive assessed: 01/28/25 I am a: Patient What is your living situation today?: I have a steady place to live Within the past 12 months, did the food you bought not last and you didn't have the money to get more?: Never true Within the past 12 months, did you worry whether your food would run out before you got money to buy more?: Never true Do you have trouble paying for medicines?: No Do you have trouble getting transportation to medical appointments?: No Do you have trouble paying your heating and electricity bill?: No Do you have trouble taking care of your child, family member or friend?: No Do you have trouble with day-to-day activities such as bathing, preparing meals, shopping, managing finances, etc.?: No Are you currently unemployed and looking for a job?: No Are you interested in more education?: No Please select the resources that you would like help with: None Currently or been in a relationship where the following occur: No concerns reported THRIVE Score: 0 AUDIT C Alcohol Use Questionnaire (AUDIT-C) 2. How many drinks containing alcohol do you have on a typical day when you are drinking?: 1 or 2 3. How often do you have six or more drinks on one occasion?: Never Total Score: 0 AMAN-7 AMB Questionnaire AMAN-7 Date AMAN - 7 assessed: 01/28/25 Feeling nervous, anxious, or on edge: 0 = Not at all Not being able to stop or control worryin = Not at all Worrying too much about different things: 0 = Not at all Trouble relaxin = Not at all Being so restless that it is hard to sit still: 0 = Not at all Becoming easily annoyed or irritable: 0 = Not at all Feeling afraid as if something awful might happen: 0 = Not at all Total AMAN-7 score (0-4 normal; 5-9 mild; 10-14 moderate; 15-21 severe): 0 Source: Developed by Drs. Goldy Bartlett, Gregoria Herndon, Ye Olivo and colleagues, with an educational devang from [employer]. Physical exam (Primary Care) Vital Signs: Last Vital Signs Temp 97.1 F 01/28/25 08:29 Pulse 97 01/28/25 08:29 BP 110/60 01/28/25 08:29 Pulse Ox 93 01/28/25 08:29 Oxygen Delivery Method Room Air 01/28/25 08:29 Care Plan Goal for BP management: BP in range BMI result Body Mass Index 29.3 Tobacco/Smoking Status: Tobacco use Status Tobacco use date assessed 01/28/25 01/28/25 08:36 Patient Tobacco Use Status Former Tobacco user 01/28/25 08:36 Tobacco use type Cigarette 01/28/25 08:36 e-Cigarette/Vaping Use Never Used 01/28/25 08:36 PHQ-9: PHQ-9 Score PHQ-9: Total score 0 01/28/25 08:36 Depression Screening Interpretation: Negative Thrive Assessment: Date of Thrive Assessment Date Thrive assessed 01/28/25 01/28/25 08:36 Currently or been in a relationship where the following occur: No concerns reported Coding Level of Care Code Est Pt Level 4 (91829) Complex EM visit Add On G2211 Diagnoses Generalized anxiety disorder F41.1 Essential hypertension I10 Asthma-COPD overlap syndrome J44.9 Hypercholesterolemia E78.00 Assessment & Plan Assessment & Plan (1) Generalized anxiety disorder: Code(s): F41.1 - Generalized anxiety disorder Category: Medical Plan: Use the Seroquel at night (2) Essential hypertension: Code(s): I10 - Essential (primary) hypertension Category: Medical Plan: BP in range (3) Asthma-COPD overlap syndrome: Code(s): J44.9 - Chronic obstructive pulmonary disease, unspecified Category: Medical Plan: Condition is stable, Continue use of nebulizer (4) Hypercholesterolemia: Code(s): E78.00 - Pure hypercholesterolemia, unspecified Category: Medical Plan: Fasting bw ordered to check LDL and the effectiveness of the statins Plan History of Present Illness The patient is a 59-year-old male presenting with a follow-up for Chronic Obstructive Pulmonary Disease (COPD) and hypercholesterolemia management. The patient has continued taking his prescribed statin for three months, and the effectiveness of this treatment is undergoing evaluation through planned fasting blood work. He reports having been placed on a nebulizer to help manage his COPD symptoms, which he finds beneficial in maintaining functional activity despite some persistent exertional difficulties. These exercise-associated issues have prompted referral to cardiology, exploring potential underlying causes related to emphysema diagnosis and possibly heart conditions. During the patient?s visit, discussion about adherence to appointments was addressed, particularly concerning a rescheduled sleep study, with planned neurological evaluations potentially inclusive. The patient is undergoing sertraline treatment, initially targeting anxiety concerns, and dosing timing was altered in the hope of addressing associated somnolence and sleep disturbances, potentially contributing to cognitive adjustments due to the ce ssation of cannabis use. He reports having stopped alcohol consumption due to gastrointestinal sensitivity, noting improvement thereafter. Overall, although the patient struggles with sleep, steps towards healthier lifestyle choices were acknowledged in his management plan, noting anticipated ongoing assessments and follow-ups with involved specialties. Social History - Employment: Currently working, reports functional limitations related to physical exertion. - Substance Use: Recently quit smoking cannabis and drinking beer; reports improved gastrointestinal symptoms. - Sleep: Reports difficulties with sleep since quitting cannabis. - Medication Adherence: Continuing prescribed medications for COPD and anxiety. - Lifestyle Modifications: Ceased beer consumption due to abdominal sensitivity, adhering to nebulizer use. Review of Systems - Respiratory: Reports difficulty with exertion, such as getting to his truck. - Neurologic: Reports no memory problems. Physical Exam General: Appearance normal, both eyes and all related structures Nutritional Appearance: Well nourished Orientation/consciousness: Patient oriented x3 Limitations: Difficulty getting to the truck, possibly due to respiratory issues Head: Normal to inspection Neck: Normal visual inspection Chest: Normal palpation of entire chest wall Respiratory: Normal respiratory effort, patient on nebulizer for COPD Neurology: Patient oriented x3, no memory problems reported Results - Labs: Fasting blood work pending for cholesterol evaluation. Plan For Chronic Obstructive Pulmonary Disease, I have emphasized the importance of regular nebulizer application, alongside the need for ongoing pulmonary follow- up to prevent exacerbations and manage respiratory symptoms effectively. Cardiological referral is necessary to rule out any cardiac component to his emphysema-induced symptoms, and a sleep study is in order, attributing his insomnia partially to these underlying conditions. The patient's statin therapy for hypercholesterolemia will undergo reassessment with pending lab results to verify its efficacy over the past three months. Shifted sertraline administration to the evening is recommended to alleviate daytime drowsiness concerns. Enhanced focus on ongoing self-monitoring and lifestyle prompt his commitment to non-use of cannabis and alcohol, an encouraging factor amid his symptoms of insomnia and anxiety. I will maintain observant follow-ups with his neurologist and other involved care providers, with scheduled re-evaluation in three months to review his progress and adjust any necessary therapeutic or monitoring approaches. Patient was informed and verbally consented to the use of an ambient scribe for clinic note documentation during this visit. Discussion Notes During the consultation, I discussed with the patient the importance of comprehensive management for his COPD, hypercholesterolemia, and associated symptoms. The plan for monitoring his response to statin therapy was outlined, with pending cholesterol test results being a rogers determinant for ongoing assessments. We considered the potential cardiac origin of his exertional dyspnea and recommended a cardiology referral consequent upon his emphysema findings. Continued sertraline use, altered to evening intake, was advised due to patient- reported daytime drowsiness, aligning with lifestyle changes including cessation of cannabis and alcohol use. The implications and anticipated benefits of this medication timing adjustment were reviewed. I encouraged consistent nebulizer use emphasizing the impactful role it plays in COPD symptom management. Future steps involve rescheduling his sleep study and adhering to follow-up neurologist visits to tackle insomnia issues effectively. I underscored that maintaining positive lifestyle changes is crucial moving forward, with an emphasis on supporting his smoking and alcohol cessation gains. Our next follow- up is scheduled for three months, and I advised him to convey any issues sooner as needed. Patient Instructions - Continue taking your statin medication daily as prescribed. - Adhere to the nebulizer use schedule recommended for three times a day to manage COPD symptoms. - Shift sertraline intake to the evening to help reduce daytime drowsiness. - Reschedule and complete the sleep study to further investigate sleep disturbances. - Attend your upcoming pulmonology and neurology appointments as planned. - Maintain abstinence from alcohol and cannabis to support overall health improvements. - Report any significant changes in symptoms to me before your next appointment. - Schedule a follow-up visit in three months for ongoing management review.
[2025-01-28 08:29] VITALS: BP 110/60; PULSE 97; TEMP 36.2; O2SAT 93; BMI 29.3
--- OUTSIDE RECORDS SUMMARY | 2025-01-28 08:31 | XMS_ITS | Clinical Summary ---
Author Organization [facility] ity Address [address] [place] [address] Care Team Providers Care Colleter Name Role Phone Unavailable Primary Care Provider [...]
== END 2025-01-28 09:02 | disposition home or self-care (01) ==
LOC: HO.HMCH 08:20
PROVIDERS: PCP Internal Medicine; Visit Provider Internal Medicine
DX: F41.1 Generalized anxiety disorder (principal); I10 Essential (primary) hypertension; J44.9 Chronic obstructive pulmonary disease, unspecified; E78.00 Pure hypercholesterolemia, unspecified

== ENCOUNTER 2025-03-08 06:27 | Outpatient (REF) | payer OTHER, SELFPAY ==
[2025-03-08 07:50] LABS: Cholesterol 200 mg/dL (<200); HDL Cholesterol 54 mg/dL (>40); LDL Cholesterol Calculated 110 mg/dL (<100); Triglycerides 181 mg/dL (<150)
== END 2025-03-08 06:28 | disposition home or self-care (01) ==
LOC: HO.LAB 06:27
PROVIDERS: PCP Internal Medicine; Visit Provider Internal Medicine
DX: E78.00 Pure hypercholesterolemia, unspecified (principal)
CPT/HCPCS: 36415; 80061

== ENCOUNTER → 2025-03-15 07:42 | Outpatient (REF) | payer OTHER, SELFPAY | LOC: HO.SL 07:42 | PROVIDERS: PCP Internal Medicine; Visit Provider Psychiatry & Neurology Neurology | DX: G25.81 Restless legs syndrome (principal); R06.83 Snoring; G47.10 Hypersomnia, unspecified | CPT/HCPCS: 95806 ==

== ENCOUNTER → 2025-03-15 08:02 | Outpatient (BNV) | payer OTHER, SELFPAY | PROVIDERS: PCP Internal Medicine; Visit Provider Psychiatry & Neurology Neurology | DX: R06.83 Snoring (principal); G47.10 Hypersomnia, unspecified | CPT/HCPCS: 95806 ==

== ENCOUNTER 2025-04-08 14:22 | Outpatient (AMB) | payer OTHER, SELFPAY ==
--- NOTE | 2025-04-08 14:57 | MHC.OFFVIS ---
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 Accompanied by: Self / Same As Patient Allergies No Known Allergies [No Known Allergies*] Allergy (Verified 01/28/25 09:05) Medication List - Last Reconciled 04/08/25 by Angel Ceja MD albuterol sulfate 90 mcg/actuation 1 inh inhalation QID PRN cqzukbmnmnx-pyfrajzzy-cmxgckhr 200-62.5-25 mcg (Trelegy Ellipta) 1 inh inhalation DAILY gabapentin 1-2 caps orally bedtime; ipratropium-albuterol 0.5 mg-3 mg(2.5 mg base)/3 mL 3 mL inhalation Q6H PRN lisinopril 10 mg PO DAILY rosuvastatin 20 mg PO DAILY sertraline 100 mg PO DAILY HPI Comments Details: William is here for consultation regarding shortness of breath and chest pain. He carries a diagnosis of COPD/ asthma. With exertional activities, he may feel short of breath. He also gets some left-sided chest pain left arm pain. However, he gets those symptoms rather when he is using his left shoulder and left arm and not during physical exertion. That part seems rather musculoskeletal. Sometimes he also feels the chest pain when he is breathing and hence could have pleuritic components. No known coronary disease, myocardial infarction or cardiomyopathy. [facility] Medical History (Updated 04/08/25 @ 15:29 by Angel Ceja MD) Hypersomnia Snoring Restless legs syndrome (RLS) Familial hypercholesterolemia Depression Behavior concern Hand weakness Hx of hemorrhoids Asthma Tubular adenoma Essential hypertension Alcohol abuse Hypercholesterolemia Surgical History Hx of shoulder surgery Hx of excision of testicular mass H/O hemorrhoidectomy Hx of colonoscopy (~09/07/21) History of neck surgery Family History Mother No problems noted. Father No problems noted. Social History Housing: Apartment Alcohol intake: current Alcohol intake frequency: holidays/special occasions only Patient Tobacco Use Status: Former Tobacco user Tobacco use type: Cigarette Cigarette Packs Per Day: 2.5 Years Smoked: 30 e-Cigarette/Vaping Use: Never Used Second Hand Smoke Exposure: Yes service: No Current occupational status: employed Current occupational exposures/hazards: No Cognitive needs: No Hearing needs: No Vision needs: Yes (glasses) Review of Systems Const Denies chills, Denies fatigue, Denies fever(s), Denies frequent falls, Denies weakness, Denies weight gain and Denies weight loss ENT Reports dizziness Card Reports chest pain, Reports chest pain at rest, Reports chest pain with activity, Denies leg edema, Denies lightheadedness, Denies palpitations, Reports dyspnea, Reports dyspnea on exertion and Reports orthopnea Resp Denies cough, Reports dyspnea and Reports dyspnea on exertion GI Denies bloating and Denies change in bowel habits Musc Denies muscle weakness, Denies numbness and Denies tingling Neuro Reports dizziness, Denies frequent falls, Denies numbness, Denies tingling and Denies weakness Endo Denies fatigue and Denies palpitations Physical Exam Vital Signs: Last Vital Signs Pulse 72 04/08/25 14:58 BP 130/70 04/08/25 14:58 BMI result Body Mass Index 30.0 Const General: comfortable and no acute distress Orientation/consciousness: patient oriented x3 HEENT Other: Unremarkable Head: Yes normal to inspection Neck Neck: Yes normal visual inspection Chest Chest palpation & inspection: normal inspection of the chest Resp Auscultation: clear to auscultation bilaterally Cardio Palpation: normal PMI Heart sounds: S1 normal heart sound present, S2 normal heart sound present, no gallops, no murmurs and no rubs GI Palpation (GI): Soft to palpation Back/Spine/Pelvis Other: unremarkable Skin General skin exam: no rashes or lesions noted Neuro General: patient oriented x3 Extrem General: Yes normal to inspection Psych Mental Status: mental status grossly normal Office Procedures EKG Details: EKG with underlying sinus rhythm at 72/Min; right bundle-branch block pattern. [id number], Complete Assessment & Plan Assessment & Plan (1) Dyspnea on exertion: Code(s): R06.00 - Dyspnea, unspecified Category: Medical (2) Chest pain: Code(s): R07.9 - Chest pain, unspecified Category: Medical (3) Right bundle branch block: Code(s): I45.10 - Unspecified right bundle-branch block Category: Medical Plan In the echocardiogram, LVEF is 60-65%. Normal diastolic filling. No significant valvular abnormalities. No evidence of pulmonary hypertension. IVC has normal size /collapsibility. Recent cardiac BNP that was performed elsewhere seems to be within normal limits per patient portal information. Shortness of breath itself is probably related to COPD. With regard to the chest pains, again description does not sound clearly cardiac in nature. With his risk factor profile of smoking history, hypertension, dyslipidemia, we will get a coronary CTA for definitive assessment. With regard to right bundle-branch block, no specific implications at this time. Can be followed periodically on EKGs. Discussed with the patient about this and he is agreeable. Follow-up after testing. Orders: Orders Basic Metabolic Panel Today R07.9 - Chest pain, unspecified CT Cardiac Coronary Angio Today I25.10 - Atherosclerotic heart disease of [place] coronary artery without angina pectoris, R07.9 - Chest pain, unspecified Coding Level of Care Code New Pt Level 4 (67143) Complex EM visit Add On G2211 Diagnoses Dyspnea on exertion R06.00 Chest pain R07.9 Right bundle branch block I45.10 CPT Codes EKG - CPT: 38043-[id number], Complete ([id number])
[2025-04-08 14:58] VITALS: BP 130/70; PULSE 72
== END 2025-04-08 15:25 | disposition home or self-care (01) ==
LOC: HO.HCS 14:22
PROVIDERS: PCP Internal Medicine; Visit Provider Internal Medicine
DX: R06.00 Dyspnea, unspecified (principal); R07.9 Chest pain, unspecified; I45.10 Unspecified right bundle-branch block
CPT/HCPCS: 93010; 99204; G2211

== ENCOUNTER → 2025-04-08 14:22 | Outpatient (BNVA) | payer OTHER, SELFPAY | PROVIDERS: PCP Internal Medicine; Visit Provider Internal Medicine | DX: R06.00 Dyspnea, unspecified (principal); R07.9 Chest pain, unspecified; I45.10 Unspecified right bundle-branch block | CPT/HCPCS: 93005 ==

== ENCOUNTER → 2025-04-16 19:30 | Outpatient (REF) | payer OTHER, SELFPAY | LOC: HO.SL 19:30 | PROVIDERS: PCP Internal Medicine; Visit Provider Psychiatry & Neurology Neurology | DX: R06.83 Snoring (principal); R05.3 Chronic cough; G47.10 Hypersomnia, unspecified; G47.61 Periodic limb movement disorder | CPT/HCPCS: 95810 ==

== ENCOUNTER → 2025-04-16 21:12 | Outpatient (BNV) | payer OTHER, SELFPAY | PROVIDERS: PCP Internal Medicine; Visit Provider Psychiatry & Neurology Neurology | DX: R06.83 Snoring (principal) | CPT/HCPCS: 95810 ==

== ENCOUNTER 2025-04-27 09:42 | Outpatient (AMB) | payer OTHER, SELFPAY ==
--- NOTE | 2025-04-27 09:48 | A.OFFVIS_ITS ---
Vital Signs 04/27/25 09:49 Height 5 ft 8 in Weight 197 lb BMI 30.0 BP 124/70 Blood Pressure Location Rt brachial Position Sitting Pulse 88 Pulse Source Pulse Oximeter Pulse Oximetry (%) 92 Oxygen Delivery Method Room Air Intake Visit Reasons: 6M follow up Intake Note: Patient presents for follow up retrial of sertraline. pt. no showed for sleep study on 09/14 Allergies No Known Allergies [No Known Allergies*] Allergy (Verified 04/27/25 09:50) HPI Comments Details: 59y/o right handed male is here for follow up . He is doing good. His mood was good with sertraline 100mg qd . He also started biofeedback. His anxiety is better. No tremors. His hand is better.No weakness Home sleep test - inconclusive . He is still smoking marijuana- less than a joint a day . He has abnormal sensation in his legs at night that wakes him up- better with gabapentin. He also has abnormal leg movements at night- gabapentin helps as needed. He stopped alcohol . JANIS scan was negative for parkinsons. Previous History-He c/o hand weakness, change in handwriting. He reports that his hand writing has become illegible , drops things frequently form both his hands, has difficulty picking small things, has difficulty with fine motor coordination since 2019. He also reports hand cramping when he hold his pen etc. He denies neck pain or tremors. He denies numbness, tingling, gait issues. He has had urinary urgency and had an episode of incontinence. His work feel his voice is softer and slurred, his facial expression has changed.His work is trying to fire him, he was told that he is rude to his boss.He was reported to for aggressive behavior etc. He has anxiety , depression, cries during the visit. His mood has been affected for 1 year because of his job situation. He reports difficulty falling asleep staying asleep. [facility] Medical History Hypersomnia Snoring Restless legs syndrome (RLS) Familial hypercholesterolemia Depression Behavior concern Hand weakness Hx of hemorrhoids Asthma Tubular adenoma Essential hypertension Alcohol abuse Hypercholesterolemia Surgical History Hx of shoulder surgery Hx of excision of testicular mass H/O hemorrhoidectomy Hx of colonoscopy (~09/07/21) History of neck surgery Family History Mother No problems noted. Father No problems noted. Social History Housing: Apartment Alcohol intake: current Alcohol intake frequency: holidays/special occasions only Patient Tobacco Use Status: Former Tobacco user Tobacco use type: Cigarette Cigarette Packs Per Day: 2.5 Years Smoked: 30 e-Cigarette/Vaping Use: Never Used Second Hand Smoke Exposure: Yes service: No Current occupational status: employed Current occupational exposures/hazards: No Cognitive needs: No Hearing needs: No Vision needs: Yes (glasses) Physical Exam Vital Signs: Last Vital Signs Pulse 88 04/27/25 09:49 BP 124/70 04/27/25 09:49 Pulse Ox 92 04/27/25 09:49 Oxygen Delivery Method Room Air 04/27/25 09:49 BMI result Body Mass Index 30.0 Const Orientation/consciousness: patient oriented x3 Eyes Pupils: Equal, round and reactive pupils present Neuro Other: mild decreased blink and facial expression Right UE - cog wheel rigidty FFM normal Gait- severely decreased arm swing on the right General: patient oriented x3, tone normal and moves all extremities Cranial nerves: Yes Facial sensation intact/muscles of mastication intact, Yes Equal, round and reactive pupils present, Yes Bilaterally intact EOM present, Yes Nystagmus not present, Yes Normal facial strength present, Yes Midline tongue present, Yes Symmetric palate elevation present and Yes Ability to bilaterally elevate shoulders present Cognition (Neuro): normal cognition Gait exam (Neuro): Other gait observations present (no arm swing on right) Motor exam (neuro): 5/5 motor strength present throughout Coordination: urpfmr-an-lypl test normal Psych Appearance: grossly normal Affect: normal affect Assessment & Plan Assessment & Plan (1) Restless legs syndrome (RLS): Code(s): G25.81 - Restless legs syndrome Category: Medical (2) Generalized anxiety disorder: Code(s): F41.1 - Generalized anxiety disorder Category: Medical (3) Snoring: Code(s): R06.83 - Snoring Category: Medical (4) Hypersomnia: Code(s): G47.10 - Hypersomnia, unspecified Category: Medical Plan Sertraline 50mg qd for depression Continue [id number] qhs JANIS scan was normal Will follow up on In lab sleep study results Coding Level of Care Code Est Pt Level 4 (36121) Complex EM visit Add On G2211 Diagnoses Restless legs syndrome (RLS) G25.81 Generalized anxiety disorder F41.1 Snoring R06.83 Hypersomnia G47.10
[2025-04-27 09:49] VITALS: BP 124/70; PULSE 88; O2SAT 92
--- OUTSIDE RECORDS SUMMARY | 2025-04-27 10:42 | XMS_ITS | Clinical Summary ---
Author Organization [facility] Address [address] [place] [address] Phone Care Team Providers Care Internet Designer Name Role Phone Physician, Pcp Unknown Primary Care Provider Karina vailable Allergies No known active allergies Encounters Date Type Department Care Team Description 03/17/2025 5:12 PM EDT - 03/17/2025 9:14 PM EDT Emergency [facility] Emergency [address] [place] [address] Dizziness (Primary Dx) Discharge Disposition: Home or Self Care from Last 3 Months Social History Tobacco Use Types Packs/Day Years Used Date Smoking Tobacco: Never Assessed Sex and Gender Information Value Date Recorded Sex Assigned at Not on file Legal Sex Male 2:29 PM EST Gender Identity Not on file Sexual Orientation Not on file Last Filed Vital Signs Vital Sign Reading Time Taken Comments Blood Pressure 153/90 03/17/2025 5:48 PM EDT Pulse 76 03/17/2025 5:48 PM EDT Temperature 36.6 ??C (97.8 ??F) 03/17/2025 5:48 PM ED T Respiratory Rate 18 03/17/2025 5:48 PM EDT Oxygen Saturation 98% 03/17/2025 5:48 PM EDT Inhaled Oxygen Concentration - - Weight 90.7 kg (200 lb) 03/17/2025 5:48 PM EDT Height 172.7 cm (5' 8 ) 03/17/2025 5:48 PM EDT Body Mass Index 30.41 03/17/2025 5:48 PM EDT Plan of Treatment Health Maintenance Due Date [...] Influencers of Health Screening 10/10/2022 COVID-19 Vaccine (2 - 2023-2 5 season) 2024 02/18/2021 Influenza Vaccine (Season Ended) 2025 RSV Immunization Adult Patie nts (1 - 1-dose 75+ series) 2040 HIB [...] age to complete this topic Meningococcal B Vaccine Aged Out No l onger eligible based on patient's age to complete this topic Pneumococcal Vaccine: Pediat rics (0 to 5 Years) and At-Risk Patients (6 to 64 Years) Aged Out No longer eligi ble based on patient's age to complete this topic RSV Immunization Patients Un leandra 20 months Aged Out No longer eligible b ased on patient's age to complete this topic Varicella Vaccines Aged Out No longer eligible based on patient's age to complete this topic Procedures Procedure Name Priority Date/Time Associated Diagnosis Comments ECG ANNOTATED 03/18/2025 ECG 12-LEAD STAT 03/17/2025 6:34 PM EDT TROPONIN I HIGH SENSITIVITY STAT 03/17/2025 6:31 PM EDT XR CHEST 2 VIEWS STAT 03/17/2025 5:59 PM EDT CBC WITH AUTO DIFFERENTIAL STAT 03/17/2025 5:36 PM EDT D-DIMER STAT 03/17/2025 5:36 PM EDT B-TYPE NATRIURETIC PEPTIDE STAT 03/17/2025 5:36 PM EDT MAGNESIUM STAT 03/17/2025 5:36 PM EDT LIPASE STAT 03/17/2025 5:36 PM EDT COMPREHENSIVE METABOLIC PANEL STAT 03/17/2025 5:36 PM EDT CBC AND DIFFERENTIAL STAT 03/17/2025 5:36 PM EDT TROPONIN I HIGH SENSITIVITY STAT 03/17/2025 5:36 PM EDT RESPIRATORY VIRUS PANEL MOLECULAR STUDY STAT 03/17/2025 5:35 PM EDT ECG 12-LEAD STAT 03/17/2025 5:27 PM EDT from Last 3 Months Results * ECG-Annotated (03/18/2025) us Provider Onbase MD ECG ORDERABLES Final Result * ECG 12 lead (03/17/2025 6:34 PM EDT) Only the most recent of2 resultswithin the time period is included. Ventricular Rate ECG 67 BPM GEMUSE Atrial Rate 67 BPM GEMUSE P-R Interval 172 ms GEMUSE QRS Duration 140 ms GEMUSE Q-T Interval 436 ms GEMUSE QTc 460 ms GEMUSE P Wave [place] 64 degrees GEMUSE R [place] 57 degrees GEMUSE T [place] 22 degrees GEMUSE ECG Interpretation Normal sinus rhythm with sinus arrhythmia Right bundle branch block Abnormal ECG When compared with ECG of 17-MAR-2025 17:27, (unconfirmed) No significant change was found Confirmed by Abiodun REBOLLAR JOHN ([id number]) on 03/18/2025 7:09:49 PM GEMUSE 03/17/2025 6:34 PM EDT 03/18/2025 7:09 PM EDT Jessica MOSQUEDA ECG ORDERABLES Final Resu lt Performing Organization Address [facility] de Phone Number GEMUSE * Troponin I high sensitivity (03/17/2025 6:31 PM EDT) Only the most recent of2 resultswithin the time period is included. Pathologist [facility] High Sensitivity Troponin I 8 <=79 ng/L LAB CHEMISTRY METHOD 03/17/2025 7:17 PM EDT [facility] Blood Venous blood specimen / Unknown Venipuncture / Unknown 03/17/2025 6:31 PM EDT 03/17/2025 6:47 PM EDT Narrative [facility] - 03/17/2025 7:17 PM EDT High levels of biotin in samples may falsely decrease hsTroponin values. ??Use caution when interpreting hsTroponin results in patients taking biotin who exhibit renal impairment (eGFR <60) or in patients taking more than 20 mg/day of biotin. Jessica MOSQUEDA LAB BLOOD ORDERABLES Final Result Performing Organization Address [facility] de Phone Number [facility] [address] [place] [address], * XR Chest 2 Views (03/17/2025 5:59 PM EDT) Anatomical Region Laterality Modality Body Radiographic Carol ging 03/18/2025 8:06 AM EDT Impressions 03/18/2025 8:07 AM EDT No acute findings. -------- FINAL REPORT -------- Dictated By: Favian Burk Dictated Date: 03/18/2025 08:06 ET Assigned Physician: Favian Burk Reviewed and Electronically Signed By: Favian Burk Signed Date: 03/18/2025 08:07 ET Workstation ID: [id number] Transcribed By: Self Edit Transcribed Date: 03/18/2025 08:06 ET Narrative 03/18/2025 8:07 AM EDT PROCEDURE: PA and lateral radiographs of the chest. HISTORY: chest pain. COMPARISON: 04/23/2022. FINDINGS: Lungs, pleural spaces, pulmonary vasculature, and cardiomediastinal contours are normal. ??Atherosclerotic aspirations of the aorta. ??Mild degenerative changes of the spine. Procedure Note Favian Burk MD - 03/18/2025 PROCEDURE: PA and lateral radiographs of the chest. HISTORY: chest pain. COMPARISON: 04/23/2022. FINDINGS: Lungs, pleural spaces, pulmonary vasculature, and cardiomediastinalcontours are normal. Atherosclerotic aspirations of the aorta. Milddegenerative changes of the spine. IMPRESSION: No acute findings. -------- FINAL REPORT -------- Dictated By: Favian Burk Dictated Date: 03/18/2025 08:06 ET Assigned Physician: Favian Burk Reviewed and Electronically Signed By: Favian Burk Signed Date: 03/18/2025 08:07 ET Workstation ID: [id number] Transcribed By: Self Edit Transcribed Date: 03/18/2025 08:06 ET us Jessica MOSQUEDA IMG XR PROCEDURES Final Re sult * (ABNORMAL) CBC auto differential (03/17/2025 5:36 PM EDT) WBC 9.3 4.8 - 10.8 K/mcL LAB HEMETOLOGY METHOD 03/17/2025 6:20 PM EDT [facility] RBC 4.50 4.50 - 5.50 M/mcL LAB HEMETOLOGY METHOD 03/17/2025 6:20 PM EDT [facility] Hemoglobin 14.4 13.5 - 17.5 g/dL LAB HEMETOLOGY METHOD 03/17/2025 6:20 PM EDT [facility] Hematocrit 42.0 42.0 - 54.0 % LAB HEMETOLOGY METHOD 03/17/2025 6:20 PM EDT [facility] MCV 93.8 79.0 - 98.0 FL LAB HEMETOLOGY METHOD 03/17/2025 6:20 PM EDT [facility] MCH 32.1(H) 27.0 - 32.0 pcg LAB HEMETOLOGY METHOD 03/17/2025 6:20 PM EDT [facility] MCHC 34.3 32.0 - 37.0 g/dL LAB HEMETOLOGY METHOD 03/17/2025 6:20 PM EDT [facility] RDW 12.9 11.0 - 15.0 % LAB HEMETOLOGY METHOD 03/17/2025 6:20 PM EDT [facility] Platelets 230 130 - 400 K/mcL LAB HEMETOLOGY METHOD 03/17/2025 6:20 PM EDT [facility] MPV 9.5 7.0 - 11.0 FL LAB HEMETOLOGY METHOD 03/17/2025 6:20 PM EDT [facility] NRBC 0.0 <1.0 % LAB HEMETOLOGY METHOD 03/17/2025 6:20 PM EDT [facility] NRBC Absolute 0.00 <0.10 K/mcL LAB HEMETOLOGY METHOD 03/17/2025 6:20 PM EDT [facility] Neutrophils Relative 44.7 % LAB HEMETOLOGY METHOD 03/17/2025 6:20 PM EDT [facility] Lymphocytes Relative 42.7 % LAB HEMETOLOGY METHOD 03/17/2025 6:20 PM EDT [facility] Monocytes Relative 7.6 % LAB HEMETOLOGY METHOD 03/17/2025 6:20 PM EDT [facility] Eosinophils Relative 4.3 % LAB HEMETOLOGY METHOD 03/17/2025 6:20 PM EDT [facility] Basophils Relative 0.5 % LAB HEMETOLOGY METHOD 03/17/2025 6:20 PM EDT [facility] Immature Granulocytes Relative 0.2 % LAB HEMETOLOGY METHOD 03/17/2025 6:20 PM EDT [facility] Neutrophils Absolute 4.13 1.50 - 7.00 K/mcL LAB HEMETOLOGY METHOD 03/17/2025 6:20 PM EDT [facility] Lymphocytes Absolute 3.95 1.00 - 5.00 K/mcL LAB HEMETOLOGY METHOD 03/17/2025 6:20 PM EDT [facility] Monocytes Absolute 0.70 0.20 - 1.00 K/mcL LAB HEMETOLOGY METHOD 03/17/2025 6:20 PM EDT [facility] Eosinophils Absolute 0.40 0.00 - 0.50 K/mcL LAB HEMETOLOGY METHOD 03/17/2025 6:20 PM EDT [facility] Basophils Absolute 0.05 0.00 - 0.20 K/mcL LAB HEMETOLOGY METHOD 03/17/2025 6:20 PM EDT [facility] Immature Granulocytes Absolute 0.02 0.00 - 0.03 K/mcL LAB HEMETOLOGY METHOD 03/17/2025 6:20 PM EDT [facility] Blood Venous blood specimen / Unknown Venipuncture / Unknown 03/17/2025 5:36 PM EDT 03/17/2025 6:08 PM EDT us Jessica MOSQUEDA LAB BLOOD ORDERABLES Final Result [facility] [address] [place] [address], * D-dimer, quantitative (03/17/2025 5:36 PM EDT) Pathologist [facility] D-Dimer, Quant (D-DU) <150 <=230 ng/mL DDU LAB COAGULATION METHOD 03/17/2025 6:53 PM EDT [facility] Blood Venous blood specimen / Unknown Venipuncture / Unknown 03/17/2025 5:36 PM EDT 03/17/2025 6:08 PM EDT Narrative [facility] - 03/17/2025 6:53 PM EDT D-Dimer <230 ng/mL (D-Dimer units) is the threshold for exclusion of DVT/PE. D-Dimer may be elevated in: Critically ill, severely infected, trauma patients, DIC, acute CVA, acute PR, unstable angina, AF, old age, , and smoking. D-Dimer may be decreased with: Initiation of heparin therapy and oral anticoagulants. Jessica MOSQUEDA LAB BLOOD ORDERABLES Final Result Performing Organization Address City/[facility]/ZIP Co de Phone Number [facility] [address] [place] [address], [place] [phone] * B-type natriuretic peptide (03/17/2025 5:36 PM EDT) [facility] BNP 7 <=100 pcg/mL LAB CHEMISTRY METHOD 03/17/2025 6:45 PM EDT [facility] Blood Venous blood specimen / Unknown Venipuncture / Unknown 03/17/2025 5:36 PM EDT 03/17/2025 6:08 PM EDT Jessica MOSQUEDA LAB BLOOD ORDERABLES Final Result Performing Organization Address [facility]/ZIP Co de Phone Number [facility] [address] [place] [address], [place] [phone] * Magnesium (03/17/2025 5:36 PM EDT) [facility] Magnesium 2.1 1.9 - 2.6 mg/dL LAB CHEMISTRY METHOD 03/17/2025 6:46 PM EDT [facility] Blood Venous blood specimen / Unknown Venipuncture / Unknown 03/17/2025 5:36 PM EDT 03/17/2025 6:08 PM EDT Jessica MOSQUEDA LAB BLOOD ORDERABLES Final Result Performing Organization Address City/[facility]/ZIP Co de Phone Number [facility] [address] [place] [address], [place] [phone] * Lipase (03/17/2025 5:36 PM EDT) Lipase 37 13 - 75 unit/L LAB CHEMISTRY METHOD 03/17/2025 6:46 PM EDT [facility] Blood Venous blood specimen / Unknown Venipuncture / Unknown 03/17/2025 5:36 PM EDT 03/17/2025 6:08 PM EDT Jessica MOSQUEDA LAB BLOOD ORDERABLES Final Result Performing Organization Address City/[facility]/ZIP Co de Phone Number [facility] [address] [place] [address], [place] [phone] * Comprehensive metabolic panel (03/17/2025 5:36 PM EDT) Sodium 137 133 - 145 mmol/L LAB CHEMISTRY METHOD 03/17/2025 6:46 PM EDT [facility] Potassium 3.8 3.5 - 5.5 mmol/L LAB CHEMISTRY METHOD 03/17/2025 6:46 PM EDT [facility] Chloride 105 96 - 110 mmol/L LAB CHEMISTRY METHOD 03/17/2025 6:46 PM EDT [facility] CO2 25 21 - 32 mmol/L LAB CHEMISTRY METHOD 03/17/2025 6:46 PM EDT [facility] Anion Gap 7 3 - 11 LAB CHEMISTRY METHOD 03/17/2025 6:46 PM [facility] Glucose 87 70 - 100 mg/dL LAB CHEMISTRY METHOD 03/17/2025 6:46 PM [facility] BUN 13 5 - 25 mg/dL LAB CHEMISTRY METHOD 03/17/2025 6:46 PM [facility] Creatinine 0.71 0.70 - 1.30 mg/dL LAB CHEMISTRY METHOD 03/17/2025 6:46 PM [facility] eGFR 106 >=60 mL/min/1. 73m2 LAB CHEMISTRY METHOD 03/17/2025 6:46 PM [facility] Comment:Calculation based on the Chronic Kidney Disease Epidemiology Collaboration (CKD-EPI) equation refit without adjustment for race. BUN/Creatinine Ratio 18.3 LAB CHEMISTRY METHOD 03/17/2025 6:46 PM [facility] Calcium 9.0 8.5 - 10.5 mg/dL LAB CHEMISTRY METHOD 03/17/2025 6:46 PM [facility] AST (SGOT) 27 10 - 42 unit/L LAB CHEMISTRY METHOD 03/17/2025 6:46 PM [facility] ALT (SGPT) 50 10 - 60 unit/L LAB CHEMISTRY METHOD 03/17/2025 6:46 PM [facility] Alkaline Phosphatase 87 42 - 121 unit/L LAB CHEMISTRY METHOD 03/17/2025 6:46 PM [facility] Total Protein 7.1 6.0 - 8.0 g/dL LAB CHEMISTRY METHOD 03/17/2025 6:46 PM [facility] Albumin 3.9 3.2 - 5.0 g/dL LAB CHEMISTRY METHOD 03/17/2025 6:46 PM [facility] Total Bilirubin 0.8 0.0 - 1.4 mg/dL LAB CHEMISTRY METHOD 03/17/2025 6:46 PM [facility] Blood Venous blood specimen / Unknown Venipuncture / Unknown 03/17/2025 5:36 PM EDT 03/17/2025 6:08 PM EDT us Jessica MOSQUEDA LAB BLOOD ORDERABLES Final Result [facility] [address] [place] [address], [place] [phone] * Respiratory virus panel molecular study (03/17/2025 5:35 PM EDT) Pathologist [facility] Adenovirus Detection by PCR Not Detected Not Detected LAB MICROBIOLOGY METHOD 03/17/2025 7:02 PM EDT [facility] Influenza A PCR Not Detected Not Detected LAB MICROBIOLOGY METHOD 03/17/2025 7:02 PM EDT [facility] Influenza B PCR Not Detected Not Detected LAB MICROBIOLOGY METHOD 03/17/2025 7:02 PM EDT [facility] Coronavirus 229E Not Detected Not Detected LAB MICROBIOLOGY METHOD 03/17/2025 7:02 PM EDT [facility] Coronavirus HKU1 Not Detected Not Detected LAB MICROBIOLOGY METHOD 03/17/2025 7:02 PM EDT [facility] Coronavirus OC43 Not Detected Not Detected LAB MICROBIOLOGY METHOD 03/17/2025 7:02 PM EDT [facility] Coronavirus NL63 Not Detected Not Detected LAB MICROBIOLOGY METHOD 03/17/2025 7:02 PM EDT [facility] Parainfluenza Virus 1 Not Detected Not Detected LAB MICROBIOLOGY METHOD 03/17/2025 7:02 PM EDT [facility] Parainfluenza Virus 2 Not Detected Not Detected LAB MICROBIOLOGY METHOD 03/17/2025 7:02 PM EDT [facility] Parainfluenza Virus 3 Not Detected Not Detected LAB MICROBIOLOGY METHOD 03/17/2025 7:02 PM EDT [facility] Parainfluenza Virus 4 Not Detected Not Detected LAB MICROBIOLOGY METHOD 03/17/2025 7:02 PM EDT [facility] RSV PCR Not Detected Not Detected LAB MICROBIOLOGY METHOD 03/17/2025 7:02 PM EDT [facility] Human Metapneumovirus A and B Not Detected Not Detected LAB MICROBIOLOGY METHOD 03/17/2025 7:02 PM EDT [facility] Rhinovirus/Entero virus Not Detected Not Detected LAB MICROBIOLOGY METHOD 03/17/2025 7:02 PM EDT [facility] Bordetella pertussis Not Detected Not Detected LAB MICROBIOLOGY METHOD 03/17/2025 7:02 PM EDT [facility] Bordetella parapertussis Not Detected Not Detected LAB MICROBIOLOGY METHOD 03/17/2025 7:02 PM EDT [facility] Mycoplasma pneumo by PCR Not Detected Not Detected LAB MICROBIOLOGY METHOD 03/17/2025 7:02 PM EDT [facility] Chlamydia pneumoniae Not Detected Not Detected LAB MICROBIOLOGY METHOD 03/17/2025 7:02 PM EDT [facility] SARS COV-2 Not Detected Not Detected LAB MICROBIOLOGY METHOD 03/17/2025 7:02 PM EDT [facility] Swab Both anterior nares / Unknown Non-blood Collection / Unknown 03/17/2025 5:35 PM EDT 03/17/2025 6:08 PM EDT [facility] - 03/17/2025 7:02 PM EDT Testing was performed using the Track[employer] Respiratory Pathogen PCR Assay. All results must be correlated with the clinical findings. Results should not be used as the sole basis for diagnosis. False Negative results may occur from the presence of sequence variants in the region targeted by the assay or the presence of inhibitors. Results may be affected by concurrent antiviral/antimicrobial therapy or levels of organisms that are below the limit of detection. us Jessica MOSQUEDA LAB MICROBIOLOGY - GENERAL ORDERABLES Final Result [facility] [address] [place] [address], [place] [phone] from Last 3 Months Insurance [employer] Care Teams Internet Designer Relationship Specialty Start Date End Date Physician, Pcp Unknown PCP - General 03/17/25
== END 2025-04-27 10:24 | disposition home or self-care (01) ==
LOC: HO.HSMS 09:42
PROVIDERS: PCP Internal Medicine; Visit Provider Psychiatry & Neurology Neurology
DX: G25.81 Restless legs syndrome (principal); F41.1 Generalized anxiety disorder; R06.83 Snoring; G47.10 Hypersomnia, unspecified
CPT/HCPCS: 99214; G2211

== ENCOUNTER → 2025-04-27 09:42 | Outpatient (BNVA) | payer OTHER, SELFPAY | PROVIDERS: PCP Internal Medicine; Visit Provider Psychiatry & Neurology Neurology | DX: R29.898 Other symptoms and signs involving the musculoskeletal system (principal); F41.1 Generalized anxiety disorder; F32.A Depression, unspecified; G25.81 Restless legs syndrome; R06.83 Snoring; G47.10 Hypersomnia, unspecified ==

== ENCOUNTER 2025-05-03 09:03 | Outpatient (AMB) | payer OTHER, SELFPAY ==
[2025-05-03 09:20] VITALS: BP 106/54; PULSE 80; O2SAT 94; BMI 30.3
--- NOTE | 2025-05-03 09:20 | A.OFFVIS_ITS ---
Vital Signs 05/03/25 09:20 Height 5 ft 8 in Weight 199 lb 8.293 oz BMI 30.3 BP 106/54 L Blood Pressure Location Rt brachial Position Sitting Pulse 80 Pulse Source Pulse Oximeter Pulse Oximetry (%) 94 Oxygen Delivery Method Room Air Intake Visit Reasons: Follow Up Allergies No Known Allergies (No Known Allergies*) Allergy (Verified 05/03/25 09:22) HPI HPI Follow Up: Details: William is a pleasant 60-year-old?male, former 40+ pack-year smoker, quit 2011, with underlying asthma/COPD overlap syndrome and environmental allergies.?He has been moderately controlled on Trelegy, DuoNeb and albuterol MDI. He continues to report intermittent dyspnea on exertion with occasional dry cough and wheezing. Overall, feels symptoms are quite controlled and may be related to deconditioning which he is motivated to engage in regular exercise. He denies any visits to urgent care or hospitalizations related to respiratory distress since the last visit. He has since been evaluated by cardiology and order placed for cardiac CT, however is on hold due to insurance issues. PENDING SALE TO [facility] Medical History Hypersomnia Snoring Restless legs syndrome (RLS) Familial hypercholesterolemia Depression Behavior concern Hand weakness Hx of hemorrhoids Asthma Tubular adenoma Essential hypertension Alcohol abuse Hypercholesterolemia Surgical History Hx of shoulder surgery Hx of excision of testicular mass H/O hemorrhoidectomy Hx of colonoscopy (~09/07/21) History of neck surgery Family History Mother No problems noted. Father No problems noted. Social History Housing: Apartment Alcohol intake: current Alcohol intake frequency: holidays/special occasions only Patient Tobacco Use Status: Former Tobacco user Tobacco use type: Cigarette Cigarette Packs Per Day: 2.5 Years Smoked: 30 e-Cigarette/Vaping Use: Never Used Second Hand Smoke Exposure: Yes service: No Current occupational status: employed Current occupational exposures/hazards: No Cognitive needs: No Hearing needs: No Vision needs: Yes (glasses) Review of Systems Const Denies chills, Denies excessive sweating, Denies fever(s), Denies headache(s) and Denies night sweats Eyes Denies dry eyes, Denies irritation and Denies itchy eyes ENT Reports Normal hearing present and Denies headache(s) Card Denies chest pain, Denies chest pain at rest, Denies chest pain with activity, Denies claudication, Denies leg edema, Denies orthopnea and Denies paroxysmal nocturnal dyspnea Resp Denies chest congestion, Denies excessive phlegm production, Denies pain on inspiration, Denies pain with cough and Denies stridor Musc Denies myalgias Neuro Reports Normal hearing present and Denies headache(s) Endo Denies excessive sweating Efra/Lymph Denies lymphadenopathy Aller/Immun Denies itchy eyes and Denies seasonal rhinorrhea Physical Exam Vital Signs: Last Vital Signs Pulse 80 05/03/25 09:20 BP 106/54 L 05/03/25 09:20 Pulse Ox 94 05/03/25 09:20 Oxygen Delivery Method Room Air 05/03/25 09:20 BMI result Body Mass Index 30.3 Const General: cooperative, healthy appearing, comfortable, no acute distress, well developed and alert Orientation/consciousness: patient oriented x3 Limitations: no limitations HEENT Head: Yes normal to inspection, Yes normocephalic and Yes atraumatic Ears: hearing grossly normal bilaterally and external ears normal Eyes General: appearance normal, both eyes and all related structures Eyelids: Yes eyelids normal Sclerae: sclerae normal EOM: EOMs intact bilaterally Neck Neck: Yes normal visual inspection and Yes no lymphadenopathy Lymphatic: no lymphadenopathy noted Chest Chest palpation & inspection: normal inspection of the chest Resp Effort & Inspection: normal respiratory effort, able to speak in complete sentences, no audible wheezes, no cough, no stridor, not tachypneic, no tripod positioning and no use of accessory muscles Auscultation: clear to auscultation bilaterally Cardio Jugular venous distension: no JVD Rate: regular rate Rhythm: regular rhythm Skin Other: warm, dry General skin exam: no rashes or lesions noted Neuro General: patient oriented x3 Cranial nerves: Yes Normal hearing present Cognition (Neuro): normal cognition Gait exam (Neuro): Normal gait present Extrem General: Yes normal to inspection, Yes capillary refill normal, Yes no clubbing, cyanosis or edema and Yes no pedal edema Psych Appearance: grossly normal and well kempt Speech and movement: Normal speech and movement present and Clear speech present Affect: normal affect Attitude: cooperative Thought process: Normal thought process present Thought content: Normal thought content present Insight: Good insight present (Psych) Judgement: Good judgement present (Psych) Assessment & Plan Assessment & Plan (1) Asthma-COPD overlap syndrome: Code(s): J44.9 - Chronic obstructive pulmonary disease, unspecified Category: Medical (2) Dyspnea on exertion: Code(s): R06.00 - Dyspnea, unspecified Category: Medical (3) Personal history of tobacco use: Code(s): Z87.891 - Personal history of nicotine dependence Category: Social Hx Plan Encouraged William to continue Trelegy, DuoNeb and albuterol MDI as he reports moderate control of symptoms at this time. Prior CT 12/2024 unremarkable other than emphysematous changes and will have CT scheduled in 1 year to assess for stability. He did note that he may be leaving the state indefinitely, will see patient in 4-5 months prior to departure or sooner if needed. All questions were answered and patient is in agreement of plan. Medications: Refilled ipratropium-albuterol 0.5 mg-3 mg(2.5 mg base)/3 mL 3 mL inhalation Q6H PRN 180 mL 0RF wheezing [id number] 200-62.5-25 mcg (Trelegy Ellipta) 1 inh inhalation DAILY 60 ea 6RF Coding Level of Care Code Est Pt Level 4 (59912) Diagnoses Asthma-COPD overlap syndrome J44.9 Dyspnea on exertion R06.00 Personal history of tobacco use Z87.899
--- OUTSIDE RECORDS SUMMARY | 2025-05-03 09:43 | XMS_ITS | Clinical Summary ---
Author Organization [facility] Address [address] [place] [address] Phone Care Team Providers Care Master Motorcycle Technician Name Role Phone Physician, Pcp Unknown Primary Care Provider Karina vailable Allergies No known active allergies Encounters Date Type Department Care Team Description 03/17/2025 5:12 PM EDT - 03/17/2025 9:14 PM EDT [facility] Emergency [address] [place] [address] Dizziness (Primary Dx) Discharge Disposition: [...] 76 03/17/2025 5:48 PM EDT Temperature 36.6 C (97.8 F) 03/17/2025 5:48 PM EDT Respiratory Rate 18 03/17/2025 5:48 PM EDT [...] GEMUSE QTc 460 ms GEMUSE P Wave [place] 64 degrees GEMUSE R [place] 57 degrees GEMUSE T [place] 22 degrees GEMUSE ECG Interpretation Normal sinus rhythm with sinus arrhythmia Right bundle branch block Abnormal ECG When compared with ECG of 17-MAR-2025 17:27, (unconfirmed) No significant change was found Confirmed by Abiodun REBOLLAR JOHN ([id number]) on 03/18/2025 7:09:49 PM GEMUSE 03/17/2025 6:34 PM EDT 03/18/2025 7:09 PM EDT Jessica MOSQUEDA ECG ORDERABLES Final Resu lt SHAANUSE * Troponin I high sensitivity (03/17/2025 6:31 PM EDT) Only the most recent of2 resultswithin the time period is included. High Sensitivity Troponin I 8 <=79 ng/L LAB CHEMISTRY METHOD 03/17/2025 7:17 PM EDT [facility] Blood Venous blood specimen / Unknown Venipuncture / Unknown 03/17/2025 6:31 PM EDT 03/17/2025 6:47 PM EDT Narrative [facility] - 03/17/2025 7:17 PM EDT High levels of biotin in samples may falsely decrease hsTroponin values. Use caution when interpreting hsTroponin results in patients taking biotin who exhibit renal impairment (eGFR <60) or in patients taking more than 20 mg/day of biotin. Jessica MOSQUEDA LAB BLOOD ORDERABLES Final Result Performing Organization Address [facility]/ZIP Co de Phone Number [facility] [address] [place] [address], * XR Chest 2 Views (03/17/2025 5:59 PM EDT) Anatomical Region Laterality Modality Body Radiographic Carol ging 03/18/2025 8:06 AM EDT Impressions 03/18/2025 8:07 AM EDT No acute findings. -------- FINAL REPORT -------- Dictated By: Favian Burk Dictated Date: 03/18/2025 08:06 ET Assigned Physician: Favian Burk Reviewed and Electronically Signed By: Favian Burk Signed Date: 03/18/2025 08:07 ET Workstation ID: [id number] Transcribed By: Self Edit Transcribed Date: 03/18/2025 08:06 ET Narrative 03/18/2025 8:07 AM EDT PROCEDURE: PA and lateral radiographs of the chest. HISTORY: chest pain. COMPARISON: 04/23/2022. FINDINGS: Lungs, pleural spaces, pulmonary vasculature, and cardiomediastinal contours are normal. Atherosclerotic aspirations of the aorta. Mild degenerative changes of the spine. Procedure Note [...] Signed Date: 03/18/2025 08:07 ET Workstation ID: [id number] Transcribed By: Self Edit Transcribed Date: 03/18/2025 08:06 ET us Jessica MOSQUEDA IMG XR PROCEDURES Final Re sult * (ABNORMAL) CBC auto differential (03/17/2025 5:36 PM EDT) WBC 9.3 4.8 - 10.8 K/mcL LAB HEMETOLOGY METHOD 03/17/2025 6:20 PM EDT [facility] RBC 4.50 4.50 - 5.50 M/mcL LAB HEMETOLOGY METHOD 03/17/2025 6:20 PM EDT [facility] Hemoglobin 14.4 13.5 - 17.5 g/dL LAB HEMETOLOGY METHOD 03/17/2025 6:20 PM EDT [facility] Hematocrit 42.0 42.0 - 54.0 % LAB HEMETOLOGY METHOD 03/17/2025 6:20 PM EDT [facility] MCV 93.8 79.0 - 98.0 FL LAB HEMETOLOGY METHOD 03/17/2025 6:20 PM EDT [facility] MCH 32.1(H) 27.0 - 32.0 pcg LAB HEMETOLOGY METHOD 03/17/2025 6:20 PM EDT [facility] MCHC 34.3 32.0 - 37.0 g/dL LAB HEMETOLOGY METHOD 03/17/2025 6:20 PM EDT [facility] RDW 12.9 11.0 - 15.0 % LAB [facility]ETOLOGY [facility]17[facility] Platelets 230 130 - 400 K/mcL LAB HEMETOLOGY METHOD 03/17[facility]2025 6[facility] MPV 9.5 7.0 - 11.0 FL LAB HEMETOLOGY METHOD 03/17/2025 6:20 PM EDT [facility] NRBC 0.0 <1.0 % LAB HEMETOLOGY METHOD 03/17/2025 6:[facility] NRBC Absolute 0.00 <0.10 K/mcL LAB HEMETOLOGY METHOD 03/17/2025 6:20 [facility] Neutrophils Relative 44.7 % LAB HEMETOLOGY METHOD 03/17/2025 6:20 PM EDT [facility] Lymphocytes Relative 42.7 % LAB HEMETOLOGY METHOD 03/17/2025 6:20 [facility] Monocytes Relative 7.6 % LAB HEMETOLOGY METHOD 03/17/2025 6:20 PM [facility] Eosinophils Relative 4.3 % LAB HEMETOLOGY METHOD 03/17/2025 6:20 PM EDT [facility] Basophils Relative 0.5 % LAB HEMETOLOGY METHOD 03/17/2025 6:20 PM EDT [facility] Immature Granulocytes Relative 0.2 % LAB HEMETOLOGY METHOD 03/17/2025 6:20 PM EDT [facility] Neutrophils Absolute 4.13 1.50 - 7.00 K/mcL LAB HEMETOLOGY METHOD 03/17/2025 6:20 PM EDT [facility] Lymphocytes Absolute 3.95 1.00 - 5.00 K/mcL LAB HEMETOLOGY METHOD 03/17/2025 6:20 PM EDT [facility] Monocytes Absolute 0.70 0.20 - 1.00 K/mcL LAB HEMETOLOGY METHOD 03/17/2025 6:20 PM EDT [facility] Eosinophils Absolute 0.40 0.00 - 0.50 K/mcL LAB HEMETOLOGY METHOD 03/17/2025 6:20 PM EDT [facility] Basophils Absolute 0.05 0.00 - 0.20 K/mcL LAB HEMETOLOGY METHOD 03/17/2025 6:20 PM EDT [facility] Immature Granulocytes Absolute 0.02 0.00 - 0.03 K/mcL LAB HEMETOLOGY METHOD 03/17/2025 6:20 PM EDT [facility] Blood Venous blood specimen / Unknown Venipuncture / Unknown 03/17/2025 5:36 PM EDT 03/17/2025 6:08 PM EDT us Jessica MOSQUEDA LAB BLOOD ORDERABLES Final Result [facility] [address] [place] [address], * D-dimer, quantitative (03/17/2025 5:36 PM EDT) D-Dimer, Quant (D-DU) <150 <=230 ng/mL DDU LAB COAGULATION METHOD 03/17/2025 6:53 PM EDT [facility] Blood Venous blood specimen / Unknown Venipuncture / Unknown 03/17/2025 5:36 PM EDT 03/17/2025 6:08 PM EDT Narrative [facility] - 03/17/2025 6:53 PM EDT D-Dimer <230 ng/mL (D-Dimer units) is the threshold for exclusion of DVT/PE. D-Dimer may be elevated in: Critically ill, severely infected, trauma patients, DIC, acute CVA, acute [place], unstable angina, AF, old age, , and smoking. D-Dimer may be decreased with: Initiation of heparin therapy and oral anticoagulants. eJssica MOSQUEDA LAB BLOOD ORDERABLES Final Result Performing Organization Address [facility]/ZIP Co de Phone Number [facility] [address] [place] [address], [place] [phone] * B-type natriuretic peptide (03/17/2025 5:36 PM EDT) BNP 7 <=100 pcg/mL LAB CHEMISTRY METHOD 03/17/2025 6:45 PM EDT [facility] Blood Venous blood specimen / Unknown Venipuncture / Unknown 03/17/2025 5:36 PM EDT 03/17/2025 6:08 PM EDT Jessica MOSQUEDA LAB BLOOD ORDERABLES Final Result Performing Organization Address [facility]/State/ZIP Co de Phone Number [facility] [address] [place] [address], [place] [phone] * Magnesium (03/17/2025 5:36 PM EDT) Magnesium 2.1 1.9 - 2.6 mg/dL LAB CHEMISTRY METHOD 03/17/2025 6:46 PM EDT [facility] Blood Venous blood specimen / Unknown Venipuncture / Unknown 03/17/2025 5:36 PM EDT 03/17/2025 6:08 PM EDT Jessica MOSQUEDA LAB BLOOD ORDERABLES Final Result Performing Organization Address [facility]/ZIP Co de Phone Number [facility] [address] [place] [address], [place] [phone] * Lipase (03/17/2025 5:36 PM EDT) Pathologist [facility] Lipase 37 13 - 75 unit/L LAB CHEMISTRY METHOD 03/17/2025 6:46 PM EDT [facility] Blood Venous blood specimen / Unknown Venipuncture / Unknown 03/17/2025 5:36 PM EDT 03/17/2025 6:08 PM EDT Jessica MOSQUEDA LAB BLOOD ORDERABLES Final Result Performing Organization Address City/[facility]/ZIP Co de Phone Number [facility] [address] [place] [address], [place] [phone] * Comprehensive metabolic panel (03/17/2025 5:36 PM EDT) Sodium 137 133 - 145 mmol/L LAB CHEMISTRY METHOD 03/17/2025 6:46 PM EDT [facility] Potassium 3.8 3.5 - 5.5 mmol/L LAB CHEMISTRY METHOD 03/17/2025 6:46 PM EDT [facility] Chloride 105 96 - 110 mmol/L LAB CHEMISTRY METHOD 03/17/2025 6:46 PM EDT [facility] CO2 25 21 - 32 mmol/L LAB CHEMISTRY METHOD 03/17/2025 6:46 PM EDT [facility] Anion Gap 7 3 - 11 LAB CHEMISTRY METHOD 03/17/2025 6:46 PM EDT [facility] Glucose 87 70 - 100 mg/dL LAB CHEMISTRY METHOD 03/17/2025 6:46 PM [facility] BUN 13 5 - 25 mg/dL LAB CHEMISTRY METHOD 03/17/2025 6:46 PM [facility] Creatinine 0.71 0.70 - 1.30 mg/dL LAB CHEMISTRY METHOD 03/17/2025 6:46 PM [facility] eGFR 106 >=60 mL/min/1. 73m2 LAB CHEMISTRY METHOD 03/17/2025 6:46 PM [facility] Comment:Calculation based on the Chronic Kidney Disease Epidemiology Collaboration (CKD-EPI) equation refit without adjustment for race. BUN/Creatinine Ratio 18.3 LAB CHEMISTRY METHOD 03/17/2025 6:46 PM [facility] Calcium 9.0 8.5 - 10.5 mg/dL LAB CHEMISTRY METHOD 03/17/2025 6:46 PM [facility] AST (SGOT) 27 10 - 42 unit/L LAB CHEMISTRY METHOD 03/17/2025 6:46 PM [facility] ALT (SGPT) 50 10 - 60 unit/L LAB CHEMISTRY METHOD 03/17/2025 6:46 PM [facility] Alkaline Phosphatase 87 42 - 121 unit/L LAB CHEMISTRY METHOD 03/17/2025 6:46 PM [facility] Total Protein 7.1 6.0 - 8.0 g/dL LAB CHEMISTRY METHOD 03/17/2025 6:46 PM [facility] Albumin 3.9 3.2 - 5.0 g/dL LAB CHEMISTRY METHOD 03/17/2025 6:46 PM [facility] Total Bilirubin 0.8 0.0 - 1.4 mg/dL LAB CHEMISTRY METHOD 03/17/2025 6:46 PM [facility] Blood Venous blood specimen / Unknown Venipuncture / Unknown 03/17/2025 5:36 PM EDT 03/17/2025 6:08 PM EDT Jessica MOSQUEDA LAB BLOOD ORDERABLES Final Result [facility] [address] [place] [address], [place] [phone] * Respiratory virus panel molecular study (03/17/2025 5:35 PM EDT) Pathologist [facility] Adenovirus Detection by PCR Not Detected Not Detected LAB MICROBIOLOGY METHOD 03/17/2025 7:02 PM EDT [facility] Influenza A PCR Not Detected Not Detected LAB MICROBIOLOGY METHOD 03/17/2025 7:02 PM EDT [facility] Influenza B PCR Not Detected Not Detected LAB MICROBIOLOGY METHOD 03/17/2025 7:02 PM EDT [facility] Coronavirus 229E Not Detected Not Detected LAB MICROBIOLOGY METHOD 03/17/2025 7:02 PM EDT [facility] Coronavirus HKU1 Not Detected Not Detected LAB MICROBIOLOGY METHOD 03/17/2025 7:02 PM EDT [facility] Coronavirus OC43 Not Detected Not Detected LAB MICROBIOLOGY METHOD 03/17/2025 7:02 PM EDT [facility] Coronavirus NL63 Not Detected Not Detected LAB MICROBIOLOGY METHOD 03/17/2025 7:02 PM EDT [facility] Parainfluenza Virus 1 Not Detected Not Detected LAB MICROBIOLOGY METHOD 03/17/2025 7:02 PM EDT [facility] Parainfluenza Virus 2 Not Detected Not Detected LAB MICROBIOLOGY METHOD 03/17/2025 7:02 PM EDT [facility] Parainfluenza Virus 3 Not Detected Not Detected LAB MICROBIOLOGY METHOD 03/17/2025 7:02 PM EDT [facility] Parainfluenza Virus 4 Not Detected Not Detected LAB MICROBIOLOGY METHOD 03/17/2025 7:02 PM EDT [facility] RSV PCR Not Detected Not Detected LAB MICROBIOLOGY METHOD 03/17/2025 7:02 PM EDT [facility] Human Metapneumovirus A and B Not Detected Not Detected LAB MICROBIOLOGY METHOD 03/17/2025 7:02 PM EDT [facility] Rhinovirus/Entero virus Not Detected Not Detected LAB MICROBIOLOGY METHOD 03/17/2025 7:02 PM EDT [facility] Bordetella pertussis Not Detected Not Detected LAB MICROBIOLOGY METHOD 03/17/2025 7:02 PM EDT [facility] Bordetella parapertussis Not Detected Not Detected LAB MICROBIOLOGY METHOD 03/17/2025 7:02 PM EDT [facility] Mycoplasma pneumo by PCR Not Detected Not Detected LAB MICROBIOLOGY METHOD 03/17/2025 7:02 PM EDT [facility] Chlamydia pneumoniae Not Detected Not Detected LAB MICROBIOLOGY METHOD 03/17/2025 7:02 PM EDT [facility] SARS COV-2 Not Detected Not Detected LAB MICROBIOLOGY METHOD 03/17/2025 7:02 PM EDT [facility] Swab Both anterior nares / Unknown Non-blood Collection / Unknown 03/17/2025 5:35 PM EDT 03/17/2025 6:08 PM EDT [facility] - 03/17/2025 7:02 PM EDT Testing was performed using the [employer] Respiratory Pathogen PCR Assay. All results must [...] LAB MICROBIOLOGY - GENERAL ORDERABLES Final Result [facility] [address] [place] [address], [place] [phone] from Last 3 Months Insurance [employer] Care Teams Master Motorcycle Technician Relationship Specialty Start Date End Date Physician, Pcp Unknown PCP - General 03/17/25
== END 2025-05-03 09:43 | disposition home or self-care (01) ==
LOC: HO.HPS 09:04
PROVIDERS: PCP Internal Medicine; Visit Provider Nurse Practitioner Family
DX: J44.9 Chronic obstructive pulmonary disease, unspecified (principal); R06.00 Dyspnea, unspecified; Z87.891 Personal history of nicotine dependence
CPT/HCPCS: 99214

== ENCOUNTER 2025-07-30 12:52 | Emergency (ER) | payer OTHER, SELFPAY ==
--- NOTE | ~2025-07-30 | XR_ITS ---
EXAMINATION: XR HAND, RIGHT CLINICAL INFORMATION: pain cat bite COMPARISON: None available. TECHNIQUE: PA, lateral, and oblique views of the right hand. FINDINGS: The bones appear normal. No fracture. Alignment is anatomic. Joint spaces are maintained. No erosions or soft tissue calcifications. There is mild dorsal soft tissue swelling of the hand. XR/XR hand RT min 3V IMPRESSION: No acute bony abnormalities. Mild dorsal soft tissue swelling. Electronically signed by: Pato Martin MD 07/30/2025 01:44 PM EDT
[2025-07-30 13:03] VITALS: BP 170/85; PULSE 93; RESP 18; TEMP 36.8; O2SAT 98; BMI 28.8
--- NOTE | 2025-07-30 13:07 | ED_ITS ---
HPI - General Adult General Chief complaint: Wound/Laceration Stated complaint: Puncture Wound R Hand From Cat Time Seen by Provider: 07/30/25 18:46 Source: patient Limitations: no limitations History of Present Illness ED Provider: Sarah Reynoso PA-C HPI narrative: 60-year-old male presents after cat bite. Patient states he was bitten by his cat 2 days ago, seen at urgent Care prescribed Augmentin. His tetanus is up-to-date. Associated discomfort over the dorsum of the right hand with swelling. Denies fever. He had no imaging at urgent Care. Related Data Previous Rx's ?Medication ?Instructions ?Recorded gabapentin 300 mg capsule See Rx Instructions PO BEDTI ME #60 02/12/25 caps rosuvastatin 20 mg tablet 20 mg PO DAILY #90 tabs 03/12 lisinopril 10 mg tablet 10 mg PO DAILY #90 tabs 03/12 06/04 sertraline 100 mg tablet 100 mg PO DAILY #90 tabs ipratropium 0.5 mg-albuterol 3 mg 3 ml inhalation Q6H PRN wheezing 05/03/25 (2.5 mg base)/3 mL nebulization #180 mL soln albuterol sulfate 90 mcg/actuation 1 inh inhalation QI D PRN shortness 07/11/25 aerosol inhaler of breath or wheezing #1 ea fluticasone fur. 200 mcg-umeclid 1 inh inhalation RAMIRO Y #180 ea 07/13/25 62.5 mcg-vilant 25 mcg inhalat.powder (Trelegy Ellipta) Allergies Allergy/AdvReac Type Severity Reaction Status Date / Time No Known Allergies (No Known Allergy Verified 07/30/25 13:08 Allergies*) Review of Systems 2 Review of Systems: Yes all other systems are reviewed and are negative Constitutional: Constitutional: Denies fatigue and Denies fever(s) Musculoskeletal: Musculoskeletal: Reports arthralgias and Reports joint swelling Integumentary/Breasts: Skin/Breast: Reports erythema, Reports skin swelling and Reports wounds Endocrine: Endocrine: Denies fatigue PMFSH Past Medical History Attestation statement: The following information was validated with the patient. Medical History Hypersomnia Snoring Restless legs syndrome (RLS) Familial hypercholesterolemia Depression Behavior concern Hand weakness Hx of hemorrhoids Asthma Tubular adenoma Essential hypertension Alcohol abuse Hypercholesterolemia Surgical History Hx of shoulder surgery Hx of excision of testicular mass H/O hemorrhoidectomy Hx of colonoscopy (~09/07/21) History of neck surgery Family History Family History Mother No problems noted. Father No problems noted. Social History Social History Housing: Apartment Alcohol intake: current Alcohol intake frequency: holidays/special occasions only Patient Tobacco Use Status: Former Tobacco user Tobacco use type: Cigarette Cigarette Packs Per Day: 2.5 Years Smoked: 30 e-Cigarette/Vaping Use: Never Used Second Hand Smoke Exposure: Yes Advance Directives: No Advance Directives Information Provided: Yes service: No Current occupational status: employed Current occupational exposures/hazards: No Cognitive needs: No Hearing needs: No Vision needs: Yes (glasses) Physical Exam ED Vital Signs: Vital Signs - 24 hr 07/30/25 13:03 Temperature 98.3 F Pulse Rate 93 Respiratory Rate 18 Blood Pressure 170/85 H Pulse Oximetry 98 Oxygen Delivery Method Room Air BMI result Body Mass Index 28.8 Const Other: Alert well-appearing Orientation/consciousness: patient oriented x3 Resp Effort & Inspection: normal respiratory effort Cardio Other: Normal peripheral perfusion Skin Other: Warm dry no rash Neuro General: patient oriented x3, gait normal, no focal motor deficits and CN's II- XI intact bilaterally Extrem Other: Patient able to make a fist with the right hand, there is some subtle swelling of the dorsum of the right hand with the overlying erythema, I see a small puncture, that has sealed over, no fluctuance no induration no pus draining from the site Psych Other: Cooperative Course Course Course Narrative: RME, this is a rapid medical exam performed by Shailesh Morales please refer to primary provider for complete H&P- 60-year-old male presents for evaluation of a cat bite to his right hand. He was bit on the dorsal surface was right-hand on Saturday, 4 days ago and he went to urgent care 2 days ago and was prescribed Augmentin which she has been taking. He reports the redness and swelling is worsening. Plan for x-ray, labs including blood cultures. Medical Decision Making Medical Decision Making [facility] Narrative: 60-year-old male presents after cat bite. Patient states he was bitten by his cat 2 days ago, seen at urgent Care prescribed Augmentin. His tetanus is up-to-date. Associated discomfort over the dorsum of the right hand with swelling. Denies fever. He had no imaging at urgent Care. Problem: Cat bite History: Per patient I have considered the following differential diagnoses: Cellulitis, purulent cellulitis, abscess, osteomyelitis, foreign body Plan: X-ray obtained from triage and labs, there was no foreign body. I have viewed the site with bedside ultrasound there was no abscess. The patient does have a leukocytosis, as expected, he does have cellulitis with a puncture wound. He has not received the full benefit of his antibiotic therapy, the Augmentin is appropriate, he has literally been on it for 1.5 to 2 days. We will send with home care instructions. I have independently reviewed the following tests: Labs: Leukocytosis of 16, not anemic, no electrolyte abnormality, X-ray right hand: XR/XR hand RT min 3V IMPRESSION: No acute bony abnormalities. Mild dorsal soft tissue swelling. Differential Diagnosis Differential Diagnoses: The differential diagnosis associated with the presentation includes See medical decision-making Admission/Observation Consideration of admission/observation: Escalation of care including admission/observation considered not applicable Lab Data [facility] Lab Attestation statement: I reviewed the patient's lab results. 07/30/25 14:15 07/30/25 14:15 Labs: Lab Results 07/30/25 Range/Units 14:15 WBC 16.2 H (4.8-10.8) X10*3/uL RBC 5.09 (4.60-5.80) X10*6/uL Hgb 16.8 (14.0-18.0) g/dl Hct 46.3 (42.0-52.0) % MCV 91.0 (80.0-98.0) fL MCH 33.0 (27.0-33.0) pg MCHC 36.3 H (31.0-36.0) g/dl RDW 12.6 (11.0-16.0) % Plt Count 234 (160-400) X10*3/uL MPV 9.0 L (9.4-12.4) fL Immature Gran % (Auto) 0.4 (0.0-0.4) % Neut % (Auto) 60.5 (45-73) % Lymph % (Auto) 30.3 (20-40) % [place] % (Auto) 6.9 (2-11) % Eos % (Auto) 1.5 (0-4) % Baso % (Auto) 0.4 (0-2) % Lymph # (Auto) 4.9 (1.2-4.9) X10*3/uL [place] # (Auto) 1.1 (0.1-1.2) X10*3/uL Eos # (Auto) 0.3 (0.0-0.4) X10*3/uL Baso # (Auto) 0.1 (0.0-0.2) X10*3/uL Abs Immat Gran (auto) 0.07 H (0.00-0.03) X10*3/uL Absolute Neuts (auto) 9.8 H (2.0-8.3) x10*3/uL Absolute Nucleated RBC 0.000 (0.0-0.012) X10*3/uL Nucleated RBC % (auto) 0.0 (0.0-0.2) /100WBC ESR 3 (0-15) MM/HR Sodium 139 (135-145) mmol/L Potassium 3.6 (3.3-5.1) mmol/L Chloride 104 (96-108) mmol/L Carbon Dioxide 24 (22-29) mmol/L Anion Gap 15 (12-20) BUN 16 (9-16) mg/dL Creatinine 0.72 (0.5-1.4) mg/dL Estim Creat Clear Calc 120.0 Estimated GFR > 60 Random Glucose 90 (60-115) mg/dL Lactic Acid 1.4 (0.5-2.0) mmol/L Calcium 9.5 (8.4-10.2) mg/dL Total Bilirubin 1.3 H (0.0-1.0) mg/dL AST 31 (5-37) U/L ALT 49 H (0-40) U/L Alkaline Phosphatase 91 (39-117) U/L C-Reactive Protein 0.18 (< or = 0.50) mg/dL Total Protein 8.1 H (6.5-8.0) g/dL Albumin 5.1 H (3.5-5.0) g/dL Lipase 16 (8-78) U/L Radiology Impression Discussion of test interpretation with radiology: I have reviewed the radiologist's reading. Discharge Plan Discharge Clinical Impression: Cellulitis of hand, right Patient Disposition: Home, Self-Care Instructions: Cellulitis (ED) Additional Instructions: You are being treated for cellulitis secondary to the puncture wound. There were no foreign bodies detected on the x-ray, there was no abscess detected on the bedside ultrasound. You have not receive the full benefit of your antibiotic therapy, you have only been on the medication for 2 days. Be sure to complete the course of Augmentin. Follow up with primary care as needed. Return precautions, which would necessitate medical assessment; the development of worsening pain, significant swelling, inability to make a fist, pus draining from the site or fever, if you develop any of these symptoms, seek medical attention. Prescriptions: No Action gabapentin 300 mg capsule See Rx Instructions PO BEDTIME Qty: 60 6RF Rx Instructions: 1-2 caps orally bedtime; rosuvastatin 20 mg tablet 20 mg PO DAILY Qty: 90 1RF sertraline 100 mg tablet 100 mg PO DAILY Qty: 90 1RF lisinopril 10 mg tablet 10 mg PO DAILY Qty: 90 1RF albuterol sulfate 90 mcg/actuation HFA aerosol inhaler 1 inh inhalation QID PRN (Reason: shortness of breath or wheezing) Qty: 1 1RF Trelegy Ellipta 200-62.5-25 mcg blister with device 1 inh inhalation DAILY Qty: 180 1RF ipratropium-albuterol 0.5 mg-3 mg(2.5 mg base)/3 mL solution for nebulization 3 ml inhalation Q6H PRN (Reason: wheezing) Qty: 180 0RF Print Language: Bahraini
[2025-07-30 14:24] LABS: MANUAL DIFF FLAG NO
[2025-07-30 14:31] LABS: Hematocrit 46.3 % (42.0-52.0); Hemoglobin 16.8 g/dl (14.0-18.0); Imm Gran Abs Auto 0.07 X10*3/uL (0.00-0.03); Imm Gran Pct Auto 0.4 % (0.0-0.4); Lymphocytes Absolute Auto 4.9 X10*3/uL (1.2-4.9); Mean Corpuscular HGB Conc 36.3 g/dl (31.0-36.0); Mean Corpuscular Hemoglobin 33.0 pg (27.0-33.0); Mean Corpuscular Volume 91.0 fL (80.0-98.0); NRBC Abs Auto 0.000 X10*3/uL (0.0-0.012); NRBC Pct Auto 0.0 /100WBC (0.0-0.2); Platelet Count 234 X10*3/uL (160-400); Red Blood Count 5.09 X10*6/uL (4.60-5.80); White Blood Count 16.2 X10*3/uL (4.8-10.8)
[2025-07-30 14:40] LABS: Alanine Aminotransferase 49 U/L (0-40); Albumin Level 5.1 g/dL (3.5-5.0); Alkaline Phosphatase 91 U/L (39-117); Anion Gap 15 (12-20); Aspartate Amino Transferase 31 U/L (5-37); Blood Urea Nitrogen 16 mg/dL (9-16); Calcium 9.5 mg/dL (8.4-10.2); Carbon Dioxide 24 mmol/L (22-29); Chloride 104 mmol/L (96-108); Creatinine Clr Calc Pharmacy 120.0; Estimated Glomerular Filt Rate > 60; Lipase 16 U/L (8-78); Potassium 3.6 mmol/L (3.3-5.1); Sodium 139 mmol/L (135-145); Total Protein 8.1 g/dL (6.5-8.0)
--- OUTSIDE RECORDS SUMMARY | 2025-07-30 18:42 | XMS_ITS | Clinical Summary ---
Author Organization [facility] [place] [address] Phone Care Team Providers Care Wet Cotton Feeder Name Role Phone Physician, Pcp Unknown Primary Care Provider Karina vailable Allergies No known active allergies Social History Tobacco Use Types Packs/Day Years [...] DTaP,Tdap,and Td Vaccines (1 - Tdap) 1984 Pneumococcal Vaccine: 50+ Ye ars (1 of 1 - PCV) 2015 Zoster Vaccines (1 of 2) 2015 Cholesterol Screening (Lipid Panel) 10/10/2022 Colorectal Cancer Screening: Colonoscopy 10/10/2022 HIV Screening 10/10/2022 Hepatitis C Screening 10/10/2022 Social Influencers of Health Screening 10/10/2022 Depression Screening 11/11/2024 COVID-19 Vaccine (2 - 2024-2 6 season) 2025 02/18/2021 Influenza Vaccine (#1) 2025 RSV Immunization Adult Patie nts (1 - 1-dose 75+ series) 2040 HIB Vaccines Aged Out No longer eligi ble based on patient's age to complete this topic HPV Vaccines Aged Out No longer eligi ble based on patient's age to complete this topic Hepatitis A Vaccines Aged Out No long er eligible based on patient's age to complete this topic Hepatitis B Vaccines Aged Out No long er eligible [...] on patient's age to complete this topic Insurance [employer] Care Teams Wet Cotton Feeder Relationship Specialty Start Date End Date Physician, Pcp Unknown PCP - General 03/17/25
--- NOTE | 2025-07-30 19:24 | PM.EVENT ---
Event Note Date of Service: 07/30/25 Event Note: I was notified about Mr. Summers. My understanding is that Mr. Summers is a 60 Y M w/ hypertension, hyperlipidemia, and recent lumbar fusion, presenting to emergency department on 07/30 w/ L lower extremity pain, found to be in acute hypioxic respiratory failure and hypotension. ED work-up demonstrated bilateral lower extremity DVTs, as well as elevated BNP; the ED team expressed concerns for massive PE, which I agree. Moreover, the ED team expressed concerns for thrombolytic therapy in setting of recent spinal surgery. Given such, I agree with transfer for higher level of care, specifically for PERT and possible thrombectomy. Time Spent With Patient Time: Total time managing care of this patient today ____ minutes.
[2025-07-30 19:47] VITALS: BP 164/80; PULSE 70; RESP 18; TEMP 35.9; O2SAT 95
== END 2025-07-30 19:57 | disposition home or self-care (01) ==
PROVIDERS: Physician Assistant; Emergency Provider Emergency Medicine Emergency Medical Services; PCP Internal Medicine
DX: L03.113 Cellulitis of right upper limb (principal); Z79.899 Other long term (current) drug therapy; Z87.891 Personal history of nicotine dependence
CPT/HCPCS: 36415; 73130; 80053; 83605; 83690; 85025; 85652; 86140; 87040; 99283; 99284

== ENCOUNTER → 2025-07-30 13:07 | Outpatient (BNV) | payer OTHER, SELFPAY | PROVIDERS: PCP Internal Medicine; Visit Provider Radiology Diagnostic Radiology | DX: M79.641 Pain in right hand (principal); W55.01XA Bitten by cat, initial encounter | CPT/HCPCS: 73130 ==

== ENCOUNTER 2025-10-06 12:32 | Outpatient (AMB) | payer OTHER, SELFPAY ==
--- NOTE | 2025-10-06 12:48 | MHC.OFFVIS ---
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 Topographical Required: No Accompanied by: Self / Same As Patient Allergies No Known Allergies (No Known Allergies*) Allergy (Verified 10/06/25 12:50) Medication List - Last Reconciled 10/06/25 by Cristo King NP albuterol sulfate 90 mcg/actuation 1 inh inhalation QID PRN [id number]-[id number] 200-62.5-25 mcg (Trelegy Ellipta) 1 inh inhalation DAILY gabapentin 1-2 caps orally bedtime; ipratropium-albuterol 0.5 mg-3 mg(2.5 mg base)/3 mL 3 mL inhalation Q6H PRN lisinopril 10 mg PO DAILY rosuvastatin 20 mg PO DAILY sertraline 100 mg PO DAILY HPI Comments Details: This is a 60-year-old male patient coming in for a follow-up visit. Patient with a history of COPD/asthma, hypertension and hyperlipidemia. Patient was previously seen in the office for shortness of breath chest pain for which patient underwent a coronary CTA. Being a foster child, patient with unknown family history. Today, patient is reporting feeling well overall without any cardiac symptoms of exertional chest pain, shortness of breath, palpitations, dizziness, orthopnea, PND, presyncope, or syncope. Reporting compliance with all his medications. Patient states that he is trying to stay active and is working on doing more. [facility] Medical History Hypersomnia Snoring Restless legs syndrome (RLS) Familial hypercholesterolemia Depression Behavior concern Hand weakness Hx of hemorrhoids Asthma Tubular adenoma Essential hypertension Alcohol abuse Hypercholesterolemia Surgical History Hx of shoulder surgery Hx of excision of testicular mass H/O hemorrhoidectomy Hx of colonoscopy (~09/07/21) History of neck surgery Family History Mother No problems noted. Father No problems noted. Social History Housing: Apartment Alcohol intake: current Alcohol intake frequency: holidays/special occasions only Patient Tobacco Use Status: Former Tobacco user Tobacco use type: Cigarette Cigarette Packs Per Day: 2.5 Years Smoked: 30 e-Cigarette/Vaping Use: Never Used Second Hand Smoke Exposure: Yes service: No Current occupational status: employed Current occupational exposures/hazards: No Cognitive needs: No Hearing needs: No Vision needs: Yes (glasses) Review of Systems Const Denies daytime sleepiness, Denies difficulty sleeping, Denies snoring, Denies stops breathing during sleep and Denies weakness Card Denies chest pain, Denies rapid heart rate, Denies irregular heart rhythm, Denies claudication, Denies leg edema, Denies lightheadedness, Denies palpitations, Denies dyspnea, Denies dyspnea on exertion, Denies orthopnea, Denies paroxysmal nocturnal dyspnea and Denies slow heart rate Resp Denies cough, Denies dyspnea, Denies dyspnea on exertion and Denies snoring GI Reports no additional complaints, Denies hematochezia, Denies change in stool character and Denies dyspepsia Musc Denies abnormal gait, Denies muscle weakness and Denies numbness Neuro Denies abnormal gait, Denies numbness and Denies weakness Endo Denies palpitations Physical Exam Vital Signs: Last Vital Signs Pulse 63 10/06/25 12:49 BP 130/68 10/06/25 12:49 BMI result Body Mass Index 29.4 Assessment & Plan Assessment & Plan (1) Mild CAD: Code(s): I25.10 - Atherosclerotic heart disease of [place] coronary artery without angina pectoris Category: Medical Plan: 12/02/2024-echo study showed normal LV systolic function with an ejection fraction between 60-65%. 08/04/2025-patient underwent a coronary CTA that showed minimal coronary disease of the LAD and RCA. Clinically stable without any cardiac symptoms. No further testing indicated at this time. Patient is on rosuvastatin for hyperlipidemia. Most recent LDL at 110 not within goal of LDL less than 70. We will increase his rosuvastatin to 40 mg daily. We will repeat lipid profile and closely monitor his liver function. (2) Hypercholesterolemia: Code(s): E78.00 - Pure hypercholesterolemia, unspecified Category: Medical Plan: As above. (3) Essential hypertension: Code(s): I10 - Essential (primary) hypertension Category: Medical Plan: Blood pressure today is well-controlled. Continue on lisinopril therapy. Advised on monitoring blood pressures with a goal less than 130/80. Advised low-salt diet. (4) Right bundle branch block: Code(s): I45.10 - Unspecified right bundle-branch block Category: Medical Plan: Clinically stable. We will monitor with periodic EKGs. Advised on heart healthy diet, regular exercise, losing weight, med compliance, and aggressive management of vascular risk factors. Follow up in 1 year, sooner if needed. In the well patient will call the office with any concerns or change in symptoms. This note was generated using voice recognition software. While every effort has been made to ensure accuracy and proper sustainable products marketing manager, there may be occasional errors that could affect the content or meaning of the described symptoms. Orders: Orders Liver Panel 3 Months E78.01 - Familial hypercholesterolemia Lipid Panel 3 Months I25.10 - Atherosclerotic heart disease of [place] coronary artery without angina pectoris Medications: New rosuvastatin 40 mg PO DAILY 90 tabs 3RF Discontinued rosuvastatin Discontinued Reason: Doctor's Order 20 mg PO DAILY 90 tabs 1RF Coding Level of Care Code Est Pt Level 4 (60153) Complex visit Add On G2211 Diagnoses Mild CAD I25.10 Hypercholesterolemia E78.00 Essential hypertension I10 Right bundle branch block I45.10 Time Spent (min) 31 Comment Time spent in reviewing the chart, test results, assessment, counseling and documentation.
[2025-10-06 12:49] VITALS: BP 130/68; PULSE 63; BMI 29.4
--- OUTSIDE RECORDS SUMMARY | 2025-10-06 15:34 | XMS_ITS | Clinical Summary ---
Author Organization [facility] [place] [address] Phone Care Team Providers Care Store Coordinator Name Role Phone Physician, Pcp Unknown Primary [...] Health Maintenance Due Date Last Done Comments Colorectal Cancer Screening: Colonoscopy 1965 DTaP,Tdap,and Td Vaccines (1 - Tdap) 1984 Pneumococcal Vaccine: 50+ Ye ars (1 of 1 - PCV) 2015 Zoster Vaccines (1 of 2) 2015 Cholesterol Screening (Lipid Panel) 10/10/2022 HIV Screening 10/10/2022 Hepatitis C Screening [...] complete this topic Insurance [employer] Care Teams Store Coordinator Relationship Specialty Start Date End Date Physician, Pcp Unknown PCP - General 03/17/25
== END 2025-10-06 13:07 | disposition home or self-care (01) ==
LOC: HO.HCS 12:32
PROVIDERS: PCP Internal Medicine
DX: I25.10 Atherosclerotic heart disease of native coronary artery without angina pectoris (principal); E78.00 Pure hypercholesterolemia, unspecified; I10 Essential (primary) hypertension; I45.10 Unspecified right bundle-branch block
CPT/HCPCS: 99214; G2211

== ENCOUNTER 2025-10-11 14:01 | Outpatient (AMB) | payer OTHER, SELFPAY ==
--- NOTE | 2025-10-11 14:05 | MHC.OFFVIS ---
Vital Signs 10/11/25 14:06 Height 5 ft 9 in Weight 194 lb BMI 28.6 BP 118/72 Blood Pressure Location Lt brachial Position Sitting Pulse 91 Pulse Source Pulse Oximeter Pulse Oximetry (%) 95 Oxygen Delivery Method Room Air Intake Visit Reasons: Follow Up for a missed appointment Allergies No Known Allergies (No Known Allergies*) Allergy (Verified 10/11/25 14:14) HPI HPI Follow Up for a missed appointment: Details: William is a pleasant 60-year-old?male, former 40+ pack-year smoker, quit 2011, with underlying asthma/COPD overlap syndrome and environmental allergies.? Since last visit [place] out of [place] 6 [place], leaving his respiratory medications behind and had minimal respiratory symptoms however upon arrival back dyspnea and dry cough recurred, suggestive of an allergic component. Denies any recent allergy testing. He has since restarted Trelegy, using albuterol MDI infrequently and reports issues obtaining nebulizer supplies/medication due to insurance. At this time he feels respiratory symptoms are relatively controlled. He denies any visits to urgent care or hospitalizations related to respiratory distress since last visit. [facility] Medical History Hypersomnia Snoring Restless legs syndrome (RLS) Familial hypercholesterolemia Depression Behavior concern Hand weakness Hx of hemorrhoids Asthma Tubular adenoma Essential hypertension Alcohol abuse Hypercholesterolemia Surgical History Hx of shoulder surgery Hx of excision of testicular mass H/O hemorrhoidectomy Hx of colonoscopy (~09/07/21) History of neck surgery Family History Mother No problems noted. Father No problems noted. Social History Housing: Apartment Alcohol intake: current Alcohol intake frequency: holidays/special occasions only Patient Tobacco Use Status: Former Tobacco user Tobacco use type: Cigarette Cigarette Packs Per Day: 2.5 Years Smoked: 30 e-Cigarette/Vaping Use: Never Used Second Hand Smoke Exposure: Yes service: No Current occupational status: employed Current occupational exposures/hazards: No Cognitive needs: No Hearing needs: No Vision needs: Yes (glasses) Review of Systems Const Denies chills, Denies excessive sweating, Denies fever(s), Denies headache(s) and Denies night sweats Eyes Denies dry eyes, Denies irritation and Denies itchy eyes ENT Reports Normal hearing present, Denies headache(s), Denies nasal congestion, Denies nasal discharge, Denies post nasal drip and Denies sore throat Card Denies chest pain, Denies chest pain at rest, Denies chest pain with activity, Denies claudication, Denies leg edema, Denies dyspnea, Denies dyspnea on exertion, Denies orthopnea and Denies paroxysmal nocturnal dyspnea Resp Denies chest congestion, Denies cough, Denies excessive phlegm production, Denies pain on inspiration, Denies pain with cough, Denies dyspnea, Denies dyspnea on exertion, Denies stridor and Denies wheezing Musc Denies myalgias Neuro Reports Normal hearing present and Denies headache(s) Endo Denies excessive sweating Efra/Lymph Denies lymphadenopathy Aller/Immun Denies itchy eyes, Denies seasonal rhinorrhea and Denies wheezing Physical Exam Vital Signs: Last Vital Signs Pulse 91 10/11/25 14:06 BP 118/72 10/11/25 14:06 Pulse Ox 95 10/11/25 14:06 Oxygen Delivery Method Room Air 10/11/25 14:06 BMI result Body Mass Index 28.6 Const General: cooperative, healthy appearing, comfortable, no acute distress, well developed and alert Nutritional Appearance: obese Orientation/consciousness: patient oriented x3 Limitations: no limitations HEENT Head: Yes normal to inspection, Yes normocephalic and Yes atraumatic Ears: hearing grossly normal bilaterally and external ears normal Eyes General: appearance normal, both eyes and all related structures Eyelids: Yes eyelids normal Sclerae: sclerae normal EOM: EOMs intact bilaterally Neck Neck: Yes normal visual inspection and Yes no lymphadenopathy Lymphatic: no lymphadenopathy noted Chest Chest palpation & inspection: normal inspection of the chest Resp Effort & Inspection: normal respiratory effort, able to speak in complete sentences, no audible wheezes, no cough, no stridor, not tachypneic, no tripod positioning and no use of accessory muscles Auscultation: clear to auscultation bilaterally Cardio Jugular venous distension: no JVD Rate: regular rate Rhythm: regular rhythm Skin Other: warm, dry General skin exam: no rashes or lesions noted Neuro General: patient oriented x3 Cranial nerves: Yes Normal hearing present Cognition (Neuro): normal cognition Gait exam (Neuro): Normal gait present Extrem General: Yes normal to inspection, Yes capillary refill normal, Yes no clubbing, cyanosis or edema and Yes no pedal edema Psych Appearance: grossly normal and well kempt Speech and movement: Normal speech and movement present and Clear speech present Affect: normal affect Attitude: cooperative Thought process: Normal thought process present Thought content: Normal thought content present Insight: Good insight present (Psych) Judgement: Good judgement present (Psych) Assessment & Plan Assessment & Plan (1) Asthma-COPD overlap syndrome: Code(s): J44.9 - Chronic obstructive pulmonary disease, unspecified Category: Medical (2) Dyspnea on exertion: Code(s): R06.00 - Dyspnea, unspecified Category: Medical (3) Personal history of tobacco use: Code(s): Z87.891 - Personal history of nicotine dependence Category: Social Hx Plan Encouraged William to continue Trelegy and will send Combivent to be used p.r.n. as he has had insurance coverage issues with [employer]. He is aware to call if symptoms become less controlled. Will send for RAST to assess for an allergic component. Prior CT 12/2024 unremarkable other than emphysematous changes and will have CT scheduled in 1 year to assess for stability. All questions were answered and patient is in agreement of plan. Will follow-up in 3 months or sooner if needed. Orders: Orders Complete Blood Count Auto Diff Today Z91.09 - Other allergy status, other than to drugs and biological substances Resp Allergy Profile Region I Today Z91.09 - Other allergy status, other than to drugs and biological substances Immunoglobulin E Today Z91.09 - Other allergy status, other than to drugs and biological substances Medications: New ipratropium-albuterol 20-100 mcg/actuation (Combivent Respimat) 1 puff inhalation Q6H 4 grams 3RF Coding Level of Care Code Est Pt Level 4 (71209) Diagnoses Asthma-COPD overlap syndrome J44.9 Dyspnea on exertion R06.00 Personal history of tobacco use Z87.891
[2025-10-11 14:06] VITALS: BP 118/72; PULSE 91; O2SAT 95; BMI 28.6
== END 2025-10-11 14:33 | disposition home or self-care (01) ==
LOC: HO.HPS 14:02
PROVIDERS: PCP Internal Medicine; Visit Provider Nurse Practitioner Family
DX: J44.9 Chronic obstructive pulmonary disease, unspecified (principal); R06.00 Dyspnea, unspecified; Z87.891 Personal history of nicotine dependence
CPT/HCPCS: 99214